=== PATIENT | male | born 1960 | race Caucasian/White ===

== ENCOUNTER → 2016-04-30 | Outpatient (CLI) | payer MEDICARE ==
[2016-04-30 17:33] LABS: Aty Lym Flag Slight; Basophils # (A) 0.1 k/uL (0-0.2); Basophils % (A) 1 %; CH 37.2; CHCM 31.9; Eosinophils # (A) 0.2 k/uL (0-0.7); Eosinophils % (A) 2 %; HCT 46.9 % (39.0-53.0); HDW 3.09; HGB 14.5 gm/dL (13.0-17.5); Luc # (Auto) 0.54; Luc % (Auto) 5; Lymphocytes # (A) 4.2 k/uL (1.0-4.8); Lymphocytes % (A) 42 %; MCH 36.5 pg (25.0-35.0); MCV 117.6 fL (80.0-100.0); Macrocytosis Marked; Mean Platelet Volume 6.7; Monocytes # (A) 0.6 k/uL (0-1.0); Monocytes % (A) 6 %; Neutrophils # (A) 4.5 k/uL (1.3-7.7); Neutrophils % (A) 44 %; RBC 3.98 m/uL (4.30-5.90); RDW 15.2 % (11.5-15.5); WBC 10.1 k/uL (3.8-10.6); WBC (Perox) 9.95
[2016-04-30 17:58] LABS: ALT 46 U/L (21-72); AST 34 U/L (17-59); Alkaline Phosphatase 58 U/L (38-126); Anion Gap 10 mmol/L; Blood Urea Nitrogen 10 mg/dL (9-20); Calcium 9.5 mg/dL (8.4-10.2); Carbon Dioxide 28 mmol/L (22-30); Chloride 104 mmol/L (98-107); Glucose 87 mg/dL (74-99); Non-African American GFR(MDRD) >60 (>60 ml/min/1.73 sqM); Potassium 4.8 mmol/L (3.5-5.1); Sodium 142 mmol/L (137-145); Total Bilirubin 0.6 mg/dL (0.2-1.3); Total Protein 7.7 g/dL (6.3-8.2)
[2016-04-30 19:24] LABS: Manual Review Performed; Nucleated Red Blood Cells 0 /100 WBC (0-0); Total Cells Counted 100
[2016-05-01 14:41] LABS: LOG HIV Copies/mL <1.60 (<1.60)
== END | disposition home or self-care (01) ==
LOC: LABWHC1 16:40
PROVIDERS: ATTEND Internal Medicine Infectious Disease
DX: B20 Human immunodeficiency virus [HIV] disease (principal)
CPT/HCPCS: 36415; 80053; 85025; 86360; 87536

== ENCOUNTER → 2016-09-06 | Outpatient (CLI) | payer MEDICARE ==
[2016-09-06 10:59] LABS: ALT 42 U/L (21-72); AST 31 U/L (17-59); Alkaline Phosphatase 64 U/L (38-126); Anion Gap 8 mmol/L; Blood Urea Nitrogen 10 mg/dL (9-20); Calcium 9.2 mg/dL (8.4-10.2); Carbon Dioxide 28 mmol/L (22-30); Chloride 106 mmol/L (98-107); Glucose 91 mg/dL (74-99); Non-African American GFR(MDRD) >60 (>60 ml/min/1.73 sqM); Potassium 4.7 mmol/L (3.5-5.1); Sodium 142 mmol/L (137-145); Total Bilirubin 0.9 mg/dL (0.2-1.3); Total Protein 7.5 g/dL (6.3-8.2)
[2016-09-06 11:25] LABS: Basophils # (A) 0.1 k/uL (0-0.2); Basophils % (A) 1 %; CH 36.9; CHCM 32.1; Eosinophils # (A) 0.3 k/uL (0-0.7); Eosinophils % (A) 2 %; HCT 43.1 % (39.0-53.0); HDW 3.06; HGB 13.9 gm/dL (13.0-17.5); Luc # (Auto) 0.37; Luc % (Auto) 4; Lymphocytes # (A) 3.6 k/uL (1.0-4.8); Lymphocytes % (A) 33 %; MCH 37.4 pg (25.0-35.0); MCHC 32.3 g/dL (31.0-37.0); MCV 115.8 fL (80.0-100.0); Macrocytosis Marked; Mean Platelet Volume 6.9; Monocytes # (A) 0.7 k/uL (0-1.0); Monocytes % (A) 7 %; Neutrophils # (A) 5.7 k/uL (1.3-7.7); Neutrophils % (A) 53 %; RBC 3.72 m/uL (4.30-5.90); RDW 14.9 % (11.5-15.5); WBC 10.6 k/uL (3.8-10.6); WBC (Perox) 10.49
[2016-09-06 12:25] LABS: Manual Review Performed; Stomatocytes Present
[2016-09-11 08:15] LABS: LOG HIV Copies/mL <1.60 (<1.60)
== END | disposition home or self-care (01) ==
LOC: LABWHC1 10:04
PROVIDERS: ATTEND Internal Medicine Infectious Disease
DX: B20 Human immunodeficiency virus [HIV] disease (principal)
CPT/HCPCS: 36415; 80053; 85025; 86360; 87536

== ENCOUNTER → 2017-01-10 | Outpatient (CLI) | payer MEDICARE ==
[2017-01-10 12:47] LABS: Basophils # (A) 0.1 k/uL (0-0.2); Basophils % (A) 1 %; CH 34.6; Eosinophils # (A) 0.3 k/uL (0-0.7); Eosinophils % (A) 3 %; HCT 47.8 % (39.0-53.0); HDW 3.09; HGB 14.8 gm/dL (13.0-17.5); Hypochromasia Moderate; Luc # (Auto) 0.33; Luc % (Auto) 3; Lymphocytes # (A) 3.8 k/uL (1.0-4.8); Lymphocytes % (A) 33 %; MCH 34.8 pg (25.0-35.0); MCHC 31.1 g/dL (31.0-37.0); MCV 112.1 fL (80.0-100.0); Macrocytosis Marked; Mean Platelet Volume 6.8; Monocytes # (A) 0.8 k/uL (0-1.0); Monocytes % (A) 7 %; Neutrophils # (A) 6.1 k/uL (1.3-7.7); Neutrophils % (A) 54 %; RBC 4.26 m/uL (4.30-5.90); RDW 13.7 % (11.5-15.5); WBC 11.4 k/uL (3.8-10.6); WBC (Perox) 10.61
[2017-01-10 12:53] LABS: ALT 71 U/L (21-72); AST 34 U/L (17-59); Alkaline Phosphatase 71 U/L (38-126); Anion Gap 9 mmol/L; Blood Urea Nitrogen 11 mg/dL (9-20); Calcium 9.8 mg/dL (8.4-10.2); Carbon Dioxide 28 mmol/L (22-30); Chloride 105 mmol/L (98-107); Glucose 77 mg/dL (74-99); Non-African American GFR(MDRD) >60 (>60 ml/min/1.73 sqM); Potassium 4.8 mmol/L (3.5-5.1); Sodium 142 mmol/L (137-145); Total Bilirubin 0.3 mg/dL (0.2-1.3); Total Protein 7.6 g/dL (6.3-8.2)
[2017-01-10 13:04] LABS: Manual Review Performed
[2017-01-14 14:20] LABS: LOG HIV Copies/mL <1.60 (<1.60)
== END | disposition home or self-care (01) ==
LOC: LABWHC1 12:12
PROVIDERS: ATTEND Internal Medicine Infectious Disease
DX: B20 Human immunodeficiency virus [HIV] disease (principal)
CPT/HCPCS: 36415; 80053; 85025; 86360; 86803; 87536

== ENCOUNTER → 2017-05-07 | Outpatient (CLI) | payer MEDICARE ==
[2017-05-07 13:26] LABS: Basophils # (A) 0.1 k/uL (0-0.2); Basophils % (A) 1 %; Eosinophils # (A) 0.2 k/uL (0-0.7); Eosinophils % (A) 2 %; HCT 49.5 % (39.0-53.0); Lymphocytes # (A) 4.1 k/uL (1.0-4.8); Lymphocytes % (A) 44 %; MCHC 32.4 g/dL (31.0-37.0); MCV 92.7 fL (80.0-100.0); Mean Platelet Volume 7.4; Monocytes # (A) 0.5 k/uL (0-1.0); Monocytes % (A) 5 %; Neutrophils # (A) 4.2 k/uL (1.3-7.7); Neutrophils % (A) 45 %; Platelet Count 341 k/uL (150-450); RBC 5.34 m/uL (4.30-5.90); RDW 14.6 % (11.5-15.5); WBC 9.3 k/uL (3.8-10.6)
[2017-05-07 13:36] LABS: ALT 29 U/L (21-72); AST 20 U/L (17-59); Albumin 4.4 g/dL (3.5-5.0); Alkaline Phosphatase 72 U/L (38-126); Anion Gap 12 mmol/L; Blood Urea Nitrogen 11 mg/dL (9-20); Calcium 9.6 mg/dL (8.4-10.2); Carbon Dioxide 26 mmol/L (22-30); Chloride 106 mmol/L (98-107); Glucose 84 mg/dL (74-99); Potassium 4.8 mmol/L (3.5-5.1); Sodium 144 mmol/L (137-145); Total Bilirubin 0.4 mg/dL (0.2-1.3); Total Protein 7.7 g/dL (6.3-8.2)
[2017-05-08 14:01] LABS: HIV-1 RNA Not detected (Not detected); HIV-1 RNA, Quant <40 Copies/mL (<40)
[2017-05-08 14:52] LABS: T4/T8 Ratio (CD4:CD8) 0.5 (1.0-3.7)
== END | disposition home or self-care (01) ==
LOC: LABWHC1 12:21
PROVIDERS: ATTEND Internal Medicine Infectious Disease
DX: B20 Human immunodeficiency virus [HIV] disease (principal)
CPT/HCPCS: 36415; 80053; 85025; 86360; 87536

== ENCOUNTER → 2017-09-26 | Outpatient (CLI) | payer MEDICARE ==
[2017-09-26 17:42] LABS: Basophils # (A) 0.1 k/uL (0-0.2); Basophils % (A) 1 %; Eosinophils # (A) 0.2 k/uL (0-0.7); Eosinophils % (A) 2 %; HCT 48.1 % (39.0-53.0); HGB 14.4 gm/dL (13.0-17.5); Lymphocytes # (A) 3.1 k/uL (1.0-4.8); Lymphocytes % (A) 32 %; MCH 28.3 pg (25.0-35.0); MCV 94.3 fL (80.0-100.0); Mean Platelet Volume 6.6; Monocytes # (A) 0.7 k/uL (0-1.0); Monocytes % (A) 7 %; Neutrophils # (A) 5.6 k/uL (1.3-7.7); Neutrophils % (A) 57 %; Platelet Count 318 k/uL (150-450); WBC 9.8 k/uL (3.8-10.6)
[2017-09-26 17:56] LABS: ALT 28 U/L (21-72); AST 16 U/L (17-59); Albumin 4.1 g/dL (3.5-5.0); Alkaline Phosphatase 73 U/L (38-126); Anion Gap 8 mmol/L; Blood Urea Nitrogen 5 mg/dL (9-20); Calcium 9.3 mg/dL (8.4-10.2); Carbon Dioxide 26 mmol/L (22-30); Chloride 106 mmol/L (98-107); Glucose 85 mg/dL (74-99); Potassium 4.6 mmol/L (3.5-5.1); Sodium 140 mmol/L (137-145); Total Bilirubin 0.4 mg/dL (0.2-1.3); Total Protein 7.4 g/dL (6.3-8.2)
[2017-09-27 10:34] LABS: T4/T8 Ratio (CD4:CD8) 0.6 (1.0-3.7)
[2017-09-27 13:26] LABS: HIV-1 RNA Not detected (Not detected); HIV-1 RNA, Quant <40 Copies/mL (<40)
== END | disposition home or self-care (01) ==
LOC: LABWHC1 16:31
PROVIDERS: ATTEND Internal Medicine Infectious Disease
DX: B20 Human immunodeficiency virus [HIV] disease (principal)
CPT/HCPCS: 36415; 80053; 85025; 86360; 87536

== ENCOUNTER → 2018-05-06 | Outpatient (CLI) | payer MEDICARE ==
[2018-05-06 16:11] LABS: Basophils # (A) 0.1 k/uL (0-0.2); Basophils % (A) 1 %; Eosinophils # (A) 0.2 k/uL (0-0.7); Eosinophils % (A) 2 %; HCT 49.4 % (39.0-53.0); HGB 15.5 gm/dL (13.0-17.5); Lymphocytes # (A) 4.5 k/uL (1.0-4.8); Lymphocytes % (A) 36 %; MCH 29.7 pg (25.0-35.0); MCHC 31.3 g/dL (31.0-37.0); MCV 95.1 fL (80.0-100.0); Mean Platelet Volume 7.1; Monocytes # (A) 0.8 k/uL (0-1.0); Monocytes % (A) 6 %; Neutrophils # (A) 6.6 k/uL (1.3-7.7); Neutrophils % (A) 53 %; Platelet Count 316 k/uL (150-450); RDW 14.6 % (11.5-15.5); WBC 12.5 k/uL (3.8-10.6)
[2018-05-07 01:18] LABS: Albumin 4.7 g/dL (3.80-4.90); Albumin/Globulin Ratio 1.57 (1.60-3.17); Calcium 9.6 mg/dL (8.7-10.3); Potassium 4.7 mmol/L (3.5-5.5); Total Bilirubin 0.4 mg/dL (0.3-1.2); Total Protein 7.7 g/dL (6.2-8.2)
[2018-05-07 12:44] LABS: T4/T8 Ratio (CD4:CD8) 0.6 (1.0-3.7)
[2018-05-08 12:53] LABS: HIV-1 RNA Not detected (Not detected); HIV-1 RNA, Quant <40 Copies/mL (<40)
== END | disposition home or self-care (01) ==
LOC: LABWHC1 15:26
PROVIDERS: ATTEND Internal Medicine Infectious Disease
DX: B20 Human immunodeficiency virus [HIV] disease (principal)
CPT/HCPCS: 36415; 80053; 85025; 86360; 87536

== ENCOUNTER 2018-07-09 09:25 | Day surgery (SDC) | payer MEDICARE ==
[2018-07-07 17:04] VITALS: BMI 27.6
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
[~2018-07-09 09:25] MED LIST: LACTATED RINGERS 1,000 ML IV SCH; LIDOCAINE 1% 20 ML VIAL (10MG/ML) FOR IV START INTRADERMA PRN
[2018-07-09] MEDS ORDERED: LIDOCAINE 1% 20 ML VIAL (10MG/ML) FOR IV START INTRADERMA ONE (10:00)
[2018-07-09 10:18] VITALS: TEMP 98.2
[2018-07-09] MEDS ORDERED: PROPOFOL 10 MG/ML 20 ML VIAL IV ONE (10:34)
[2018-07-09 11:10] VITALS: BP 102/60; PULSE 90; RESP 18
--- NOTE | 2018-07-09 11:55 | P.PCN ---
Date of Procedure: 07/09/18 Description of Procedure: PREOPERATIVE DIAGNOSIS: Personal history of colon polyps. Colonoscopy screening Family history of colon cancer, multiple siblings POSTOPERATIVE DIAGNOSIS: Personal history of colon polyps. Colonoscopy screening Family history of colon cancer, multiple siblings External hemorrhoids, stage 2 Internal hemorrhoids, stage 2 OPERATION: Colonoscopy to the ileocecal valve and appendiceal orifice. Colonoscopy with multiple hot snare polypectomies SURGEON: Suma Malone MD. ANESTHESIA: MAC. INDICATIONS: The patient is a 57-year-old male who presents for colonoscopy screening. Last colonoscopy 8 years ago. Benefits and risks were described and informed consent was obtained. DESCRIPTION OF PROCEDURE: The patient had undergone Gatorade, MiraLAX and Dulcolax prep. He had been brought into the operating room and laid in the left lateral decubitus position. After adequate intravenous sedation, the rectum was examined with 2% lidocaine jelly. External hemorrhoids were encountered. The rectal tone was within normal limits. No lesions were palpated in the rectal vault. An Olympus colonoscope was advanced until the ileocecal valve and appendiceal orifice were clearly viewed. The prep was fair with visualization of the mucosal folds. The scope was removed with visualization of each mucosal fold. Scattered diverticulosis was encountered. Multiple colonic polyps were found and snare polypectomy. No evidence of focal colitis was found. Retroflexion of the scope demonstrated grade 2 internal hemorrhoids without active bleeding or inflammation. The colon was desufflated. The patient had tolerated the procedure well. Withdrawal time was over 6 minutes. FINDINGS: Aronchick preparation quality scale 2 (1-5) Internal hemorrhoids, grade 2 External hemorrhoids, grade 2. No arteriovenous malformations. Sigmoid diverticulosis. Removal of 4 polyps: - Snare polypectomy mid transverse colon 3, 4 to 5 mm tubulovillous adenoma polyp. - Snare polypectomy splenic flexure, 8 mm flat villous adenoma polyp x 1 (retrieved) No focal colitis. RECOMMENDATIONS: Given severity of tubular adenomas, recommend repeat colonoscopy 3 years, 2021. Plan - Discharge Summary Discharge Rx Participant: No New Discharge Prescriptions: No Action Ascorbic Acid [Vitamin C] 1,000 mg PO DAILY Multivit-Min/FA/Lycopen/Lutein [Centrum Silver Tablet] 1 each PO DAILY Mirtazapine [Remeron] 30 mg PO HS Elviteg/Donna/Emtric/Tenofo Dis [Stribild Tablet] 1 tab PO HS Divalproex [Depakote] 500 mg PO BID Amitriptyline HCl 200 mg PO HS Ipratropium/Albuterol Sulfate [Combivent Respimat Inhaler] 1 puff INHALATION BID Albuterol Inhaler [Ventolin Hfa Inhaler] 1 puff INHALATION TID PRN PRN Reason: sob Albuterol Nebulized (Conc) [Ventolin Nebulized (Conc)] 2.5 mg INHALATION QID Red Yeast Rice 600 mg PO DAILY Fish Oil Cap 900 mg PO DAILY Discharge Medication List Albuterol Inhaler [Ventolin Hfa Inhaler] 1 puff INHALATION TID PRN 07/07/18 [History] Albuterol Nebulized (Conc) [Ventolin Nebulized (Conc)] 2.5 mg INHALATION QID 07/07/18 [History] Amitriptyline HCl 200 mg PO HS 07/07/18 [History] Ascorbic Acid [Vitamin C] 1,000 mg PO DAILY 07/07/18 [History] Divalproex [Depakote] 500 mg PO BID 07/07/18 [History] Elviteg/Donna/Emtric/Tenofo Dis [Stribild Tablet] 1 tab PO HS 07/07/18 [History] Fish Oil Cap 900 mg PO DAILY 07/07/18 [History] Ipratropium/Albuterol Sulfate [Combivent Respimat Inhaler] 1 puff INHALATION BID 07/07/18 [History] Mirtazapine [Remeron] 30 mg PO HS 07/07/18 [History] Multivit-Min/FA/Lycopen/Lutein [Centrum Silver Tablet] 1 each PO DAILY 07/07/18 [History] Red Yeast Rice 600 mg PO DAILY 07/07/18 [History] Follow up Appointment(s)/Referral(s): Suma Malone MD [STAFF PHYSICIAN] - As Needed Patient Instructions/Handouts: *Surgery [facility] - (Anesthesia) Endoscopy Discharge Instructions, Colonoscopy (DC), Colorectal Polyps (DC) Activity/Diet/Wound Care/Special Instructions: Repeat colonoscopy 3 years, 2021 Discharge Disposition: HOME SELF-CARE
== END 2018-07-09 11:46 | disposition home or self-care (01) ==
LOC: ORWHC2ENDO 09:25
PROVIDERS: ATTEND Surgery Plastic and Reconstructive Surgery
DX: Z12.11 Encounter for screening for malignant neoplasm of colon (principal); D12.3 Benign neoplasm of transverse colon; K64.8 Other hemorrhoids; K64.4 Residual hemorrhoidal skin tags; K57.30 Diverticulosis of large intestine without perforation or abscess without bleeding; J44.9 Chronic obstructive pulmonary disease, unspecified; I10 Essential (primary) hypertension; E78.5 Hyperlipidemia, unspecified; F17.210 Nicotine dependence, cigarettes, uncomplicated; Z80.0 Family history of malignant neoplasm of digestive organs; Z86.010 Personal history of colon polyps; Z79.899 Other long term (current) drug therapy
CPT/HCPCS: 45385; 88305

== ENCOUNTER → 2018-11-04 | Outpatient (CLI) | payer MEDICARE ==
[2018-11-04 17:31] LABS: Basophils # (A) 0.1 k/uL (0-0.2); Basophils % (A) 1 %; Eosinophils # (A) 0.2 k/uL (0-0.7); Eosinophils % (A) 2 %; HCT 49.3 % (39.0-53.0); HGB 15.6 gm/dL (13.0-17.5); Lymphocytes # (A) 4.5 k/uL (1.0-4.8); Lymphocytes % (A) 43 %; MCH 30.2 pg (25.0-35.0); MCHC 31.8 g/dL (31.0-37.0); MCV 95.1 fL (80.0-100.0); Mean Platelet Volume 7.4; Monocytes # (A) 0.6 k/uL (0-1.0); Monocytes % (A) 6 %; Neutrophils # (A) 4.7 k/uL (1.3-7.7); Neutrophils % (A) 45 %; Platelet Count 353 k/uL (150-450); RBC 5.18 m/uL (4.30-5.90); RDW 15.5 % (11.5-15.5); WBC 10.4 k/uL (3.8-10.6)
[2018-11-05 12:51] LABS: T4/T8 Ratio (CD4:CD8) 0.6 (1.0-3.7)
== END | disposition home or self-care (01) ==
LOC: LABWHC1 17:03
PROVIDERS: ATTEND Internal Medicine Infectious Disease
DX: B20 Human immunodeficiency virus [HIV] disease (principal); J43.9 Emphysema, unspecified
CPT/HCPCS: 36415; 85025; 86360; 87536

== ENCOUNTER → 2018-11-05 | Outpatient (CLI) | payer MEDICARE ==
[2018-11-05 20:09] LABS: African American GFR (CKD) 86.5 (60.0-200.0); Albumin 4.6 g/dL (3.80-4.90); Albumin/Globulin Ratio 1.7 (1.60-3.17); Anion Gap 7.7 mmol/L (4.00-12.00); BUN/Creat Ratio 9.09 Ratio (12.00-20.00); Calcium 9.7 mg/dL (8.7-10.3); Carbon Dioxide 30.3 mmol/L (21.6-31.8); Chol/HDL Ratio 5.8; Globulin 2.7 g/dL (1.6-3.3); LDL Cholesterol,Calculated 130.8 mg/dL (0.0-131.0); Potassium 5.1 mmol/L (3.5-5.5); Total Bilirubin 0.3 mg/dL (0.2-1.2); Total Protein 7.3 g/dL (6.2-8.2); VLDL Calculation 61.2 mg/dL (5.00-40.00)
== END | disposition home or self-care (01) ==
LOC: LABWHC1 13:25
PROVIDERS: ATTEND Internal Medicine Infectious Disease
DX: B20 Human immunodeficiency virus [HIV] disease (principal); J43.9 Emphysema, unspecified; E78.00 Pure hypercholesterolemia, unspecified
CPT/HCPCS: 36415; 80053; 80061

== ENCOUNTER → 2019-01-23 | Outpatient (CLI) | payer MEDICARE ==
[2019-01-23 12:45] LABS: Basophils # (A) 0.3 k/uL (0-0.2); Basophils % (A) 3 %; Eosinophils # (A) 0.3 k/uL (0-0.7); Eosinophils % (A) 2 %; HGB 15.7 gm/dL (13.0-17.5); Lymphocytes # (A) 3.9 k/uL (1.0-4.8); Lymphocytes % (A) 32 %; MCH 31.4 pg (25.0-35.0); MCHC 32.7 g/dL (31.0-37.0); MCV 95.9 fL (80.0-100.0); Mean Platelet Volume 6.5; Monocytes # (A) 0.9 k/uL (0-1.0); Monocytes % (A) 7 %; Neutrophils # (A) 6.7 k/uL (1.3-7.7); Neutrophils % (A) 55 %; Platelet Count 325 k/uL (150-450); RDW 14.5 % (11.5-15.5); WBC 12.4 k/uL (3.8-10.6)
[2019-01-23 19:43] LABS: African American GFR (CKD) 96.4 (60.0-200.0); Albumin 4.4 g/dL (3.80-4.90); Albumin/Globulin Ratio 1.57 (1.60-3.17); Calcium 9.5 mg/dL (8.7-10.3); Chol/HDL Ratio 4.32; Globulin 2.8 g/dL (1.6-3.3); LDL Cholesterol,Calculated 83.8 mg/dL (0.0-131.0); Non-African American GFR(CKD) 83.2 (60.0-200.0); Potassium 4.8 mmol/L (3.5-5.5); Total Bilirubin 0.5 mg/dL (0.3-1.2); Total Protein 7.2 g/dL (6.2-8.2); VLDL Calculation 39.2 mg/dL (5.00-40.00)
[2019-01-26 12:28] LABS: T4/T8 Ratio (CD4:CD8) 0.6 (1.0-3.7)
[2019-01-26 14:51] LABS: HIV-1 RNA Not detected (Not detected); HIV-1 RNA, Quant <40 Copies/mL (<40)
== END | disposition home or self-care (01) ==
LOC: LABWHC1 11:43
PROVIDERS: ATTEND Internal Medicine Infectious Disease
DX: E78.5 Hyperlipidemia, unspecified (principal); J43.9 Emphysema, unspecified; B20 Human immunodeficiency virus [HIV] disease
CPT/HCPCS: 36415; 80053; 80061; 85025; 86360; 87536

== ENCOUNTER → 2019-07-30 | Outpatient (CLI) | payer MEDICARE ==
[2019-07-30 12:47] LABS: Basophils # (A) 0.1 k/uL (0-0.2); Basophils % (A) 1 %; Eosinophils # (A) 0.3 k/uL (0-0.7); Eosinophils % (A) 2 %; HCT 50.4 % (39.0-53.0); HGB 15.4 gm/dL (13.0-17.5); Hypochromasia Moderate; Lymphocytes # (A) 3.5 k/uL (1.0-4.8); Lymphocytes % (A) 29 %; MCH 29.7 pg (25.0-35.0); MCHC 30.7 g/dL (31.0-37.0); MCV 96.9 fL (80.0-100.0); Mean Platelet Volume 7.5; Monocytes # (A) 0.7 k/uL (0-1.0); Monocytes % (A) 6 %; Neutrophils # (A) 7.2 k/uL (1.3-7.7); Neutrophils % (A) 60 %; Platelet Count 357 k/uL (150-450)
[2019-07-31 12:57] LABS: T4/T8 Ratio (CD4:CD8) 0.6 (1.0-3.7)
== END | disposition home or self-care (01) ==
LOC: LABWHC1 11:37
PROVIDERS: ATTEND Internal Medicine Infectious Disease
DX: E78.5 Hyperlipidemia, unspecified (principal); B20 Human immunodeficiency virus [HIV] disease
CPT/HCPCS: 36415; 85025; 86360; 87536

== ENCOUNTER → 2020-04-28 | Outpatient (CLI) | payer MEDICARE ==
[2020-04-28 23:16] LABS: Basophils # (A) 0.09 X 10*3/uL (0.00-0.10); Basophils % (A) 0.8 %; Eosinophils # (A) 0.26 X 10*3/uL (0.04-0.35); Eosinophils % (A) 2.2 %; HCT 43.2 % (39.6-50.0); HGB 13.9 g/dL (13.0-17.0); Lymphocytes # (A) 3.75 X 10*3/uL (0.90-5.00); Lymphocytes % (A) 32.1 %; MCH 30.5 pg (27.0-32.0); MCHC 32.2 g/dL (32.0-37.0); MCV 94.9 fL (80.0-97.0); Mean Platelet Volume 9.5 fL (9.5-12.2); Monocytes # (A) 1.43 X 10*3/uL (0.20-1.00); Monocytes % (A) 12.2 %; Neutrophils # (A) 6.12 X 10*3/uL (1.80-7.70); Neutrophils % (A) 52.4 %; Platelet Count 406 X 10*3/uL (140-440); RBC 4.55 X 10*6/uL (4.40-5.60); RDW 17.5 % (11.5-14.5); WBC 11.69 X 10*3/uL (4.50-10.00)
[2020-04-29 04:30] LABS: African American GFR (CKD) 76.8 (60.0-200.0); Albumin 4.2 g/dL (3.80-4.90); Albumin/Globulin Ratio 1.62 (1.60-3.17); Anion Gap 12.5 mmol/L (4.00-12.00); BUN/Creat Ratio 5.83 Ratio (12.00-20.00); Calcium 9.6 mg/dL (8.7-10.3); Carbon Dioxide 28.5 mmol/L (21.6-31.8); Globulin 2.6 g/dL (1.6-3.3); Non-African American GFR(CKD) 66.3 (60.0-200.0); Potassium 3.9 mmol/L (3.5-5.5); Total Bilirubin 0.5 mg/dL (0.2-1.2); Total Protein 6.8 g/dL (6.2-8.2)
[2020-04-29 18:33] LABS: T4/T8 Ratio (CD4:CD8) 0.6 (1.0-3.7)
== END | disposition home or self-care (01) ==
LOC: LABWHC1 15:36
PROVIDERS: ATTEND Internal Medicine Infectious Disease
DX: B20 Human immunodeficiency virus [HIV] disease (principal)
CPT/HCPCS: 36415; 80053; 85025; 86360; 87536

== ENCOUNTER → 2020-10-21 | Outpatient (CLI) | payer MEDICARE ==
[2020-10-21 23:35] LABS: Basophils # (A) 0.08 X 10*3/uL (0.00-0.10); Basophils % (A) 0.8 %; Eosinophils # (A) 0.32 X 10*3/uL (0.04-0.35); Eosinophils % (A) 3.1 %; HGB 14.1 g/dL (13.0-17.0); Lymphocytes # (A) 3.61 X 10*3/uL (0.90-5.00); Lymphocytes % (A) 34.9 %; MCH 29.4 pg (27.0-32.0); MCHC 31.3 g/dL (32.0-37.0); MCV 93.8 fL (80.0-97.0); Mean Platelet Volume 9.8 fL (9.5-12.2); Monocytes # (A) 1.01 X 10*3/uL (0.20-1.00); Monocytes % (A) 9.8 %; Neutrophils % (A) 51.2 %; Platelet Count 425 X 10*3/uL (140-440); RDW 16.2 % (11.5-14.5); WBC 10.34 X 10*3/uL (4.50-10.00)
[2020-10-22 13:04] LABS: African American GFR (CKD) 69.7 (60.0-200.0); Anion Gap 11.9 mmol/L (4.00-12.00); BUN/Creat Ratio 7.69 Ratio (12.00-20.00); Calcium 9.2 mg/dL (8.7-10.3); Carbon Dioxide 24.1 mmol/L (21.6-31.8); Non-African American GFR(CKD) 60.1 (60.0-200.0)
[2020-10-22 14:55] LABS: T4/T8 Ratio (CD4:CD8) 0.7 (1.0-3.7)
== END | disposition home or self-care (01) ==
LOC: LABWHC1 14:11
PROVIDERS: ATTEND Internal Medicine Infectious Disease
DX: B20 Human immunodeficiency virus [HIV] disease (principal)
CPT/HCPCS: 36415; 80048; 85025; 86360; 87536

== ENCOUNTER 2021-04-15 14:31 | Inpatient (IN) | payer MEDICARE, BC ==
[2021-04-15] MEDS ORDERED: SODIUM CHLORIDE 0.9% 1,000 ML IV STA (14:59)
[2021-04-15] MEDS ORDERED: ONDANSETRON 4 MG/2 ML VIAL IVP STA (15:19)
[2021-04-15] MEDS ORDERED: HYDROmorphone 0.5 MG/0.5 ML SYRINGE IVP STA (15:19)
--- NOTE | 2021-04-15 15:46 | ED ---
Abdominal Pain HPI - General Chief Complaint: Abdominal Pain Stated Complaint: abd pain Time Seen by Provider: 04/15/21 14:51 Source: patient, family, RN notes reviewed Mode of arrival: wheelchair Limitations: no limitations - History of Present Illness Initial Comments: 60-year-old male presents emergency Department with chief complaint severe abdominal pain. Patient states started last 24 hours states his abdomen is very distended, very painful last bowel movement was 2 days ago. Patient states that he's had prior hernia repair, states that his evidence severely painful, distended, he's been vomiting very nauseated. He denies any dysuria hematuria no fevers chills no chest pain or shortness breath. Nothing makes his pain feel better - Related Data Home Medications Medication Instructions Recorded Confirmed Albuterol Inhaler (Mhu) [Ventolin 1 puff INHALATION TID PRN 07/07/18 07/09/18 Hfa Inhaler] Albuterol Nebulized (Conc) 2.5 mg INHALATION QID 07/07/18 07/09/18 [Ventolin Nebulized (Conc)] Amitriptyline HCl 200 mg PO HS 07/07/18 07/09/18 Ascorbic Acid [Vitamin C] 1,000 mg PO DAILY 07/07/18 07/09/18 Divalproex [Depakote] 500 mg PO BID 07/07/18 07/09/18 Elviteg/Donna/Emtric/Tenofo Dis 1 tab PO HS 07/07/18 07/09/18 [Stribild Tablet] Fish Oil Cap 900 mg PO DAILY 07/07/18 07/09/18 Ipratropium/Albuterol Sulfate 1 puff INHALATION BID 07/07/18 07/09/18 [Combivent Respimat Inhaler] Mirtazapine [Remeron] 30 mg PO HS 07/07/18 07/09/18 Multivit-Min/FA/Lycopen/Lutein 1 each PO DAILY 07/07/18 07/09/18 [Centrum Silver Tablet] Red Yeast Rice 600 mg PO DAILY 07/07/18 07/09/18 Allergies Allergy/AdvReac Type Severity Reaction Status Date / Time No Known Allergies Allergy Verified 04/15/21 14:42 Review of Systems ROS Statement: Those systems with pertinent positive or pertinent negative responses have been documented in the HPI. ROS Other: All systems not noted in ROS Statement are negative. Past Medical History Additional Past Medical History / Comment(s): HIV History of Any Multi-Drug Resistant Organisms: None Reported Past Surgical History: Hernia Repair Past Psychological History: No Psychological Hx Reported Smoking Status: Current every day smoker Past Alcohol Use History: None Reported Past Drug Use History: None Reported General Exam Limitations: no limitations General appearance: alert, in no apparent distress Head exam: Present: atraumatic, normocephalic, normal inspection Neck exam: Present: normal inspection. Absent: tenderness, meningismus, lymphadenopathy Respiratory exam: Present: normal lung sounds bilaterally. Absent: respiratory distress, wheezes, rales, rhonchi, stridor Cardiovascular Exam: Present: regular rate, normal rhythm, normal heart sounds. Absent: systolic murmur, diastolic murmur, rubs, gallop, clicks GI/Abdominal exam: Present: soft, distended, tenderness, normal bowel sounds. Absent: guarding, rebound, rigid Back exam: Absent: CVA tenderness (R), CVA tenderness (L) Neurological exam: Present: alert Skin exam: Present: warm, dry, intact, normal color. Absent: rash Course Vital Signs 04/15/21 04/15/21 14:36 15:36 Temperature 98.3 F Pulse Rate 67 100 Respiratory 18 22 Rate Blood Pressure 117/80 O2 Sat by Pulse 95 Oximetry Medical Decision Making - Medical Decision Making 60-year-old presented for abdominal pain. Patient CT shows a lot of small bowel obstruction. NG tube will be placed. Labs reveal mild leukocytosis. Patient be well-hydrated. Patient will be admitted to Dr. Johnson has patient's CT Dr. Michael in the past. - Lab Data Result diagrams: 04/15/21 15:25 04/15/21 15:25 Lab Results 04/15/21 04/15/21 04/15/21 Range/Units 15:25 15:25 15:25 WBC 13.1 H (3.8-10.6) k/uL RBC 5.38 (4.30-5.90) m/uL Hgb 16.4 (13.0-17.5) gm/dL Hct 51.0 (39.0-53.0) % MCV 94.8 (80.0-100.0) fL MCH 30.5 (25.0-35.0) pg MCHC 32.2 (31.0-37.0) g/dL RDW 14.9 (11.5-15.5) % Plt Count 430 (150-450) k/uL MPV 7.1 Sodium 137 (137-145) mmol/L Potassium 3.8 (3.5-5.1) mmol/L Chloride 98 (98-107) mmol/L Carbon Dioxide 27 (22-30) mmol/L Anion Gap 12 mmol/L BUN 24 H (9-20) mg/dL Creatinine 0.94 (0.66-1.25) mg/dL Est GFR (CKD-EPI)AfAm >90 (>60 ml/min/1.73 sqM) Est GFR (CKD-EPI)NonAf 89 (>60 ml/min/1.73 sqM) Glucose 124 H (74-99) mg/dL Plasma Lactic Acid Joselo 1.4 (0.7-2.0) mmol/L Calcium 10.0 (8.4-10.2) mg/dL Total Bilirubin 1.1 (0.2-1.3) mg/dL AST 22 (17-59) U/L ALT 21 (4-49) U/L Alkaline Phosphatase 96 (38-126) U/L Total Protein 7.7 (6.3-8.2) g/dL Albumin 4.4 (3.5-5.0) g/dL Amylase 49 (30-110) U/L Lipase 42 (23-300) U/L Disposition Clinical Impression: Small bowel obstruction Disposition: ADMITTED IP TO THIS [facility] Condition: Fair Referrals: None,Stated [Primary Care Provider] - 1-2 days
[2021-04-15 15:50] LABS: HGB 16.4 gm/dL (13.0-17.5); MCH 30.5 pg (25.0-35.0); MCHC 32.2 g/dL (31.0-37.0); MCV 94.8 fL (80.0-100.0); Mean Platelet Volume 7.1; Platelet Count 430 k/uL (150-450); RBC 5.38 m/uL (4.30-5.90); RDW 14.9 % (11.5-15.5); WBC 13.1 k/uL (3.8-10.6)
[2021-04-15 15:55] LABS: ALT 21 U/L (4-49); AST 22 U/L (17-59); African American GFR (CKD) >90 (>60 ml/min/1.73 sqM); Albumin 4.4 g/dL (3.5-5.0); Alkaline Phosphatase 96 U/L (38-126); Amylase 49 U/L (30-110); Anion Gap 12 mmol/L; Blood Urea Nitrogen 24 mg/dL (9-20); Carbon Dioxide 27 mmol/L (22-30); Chloride 98 mmol/L (98-107); Glucose 124 mg/dL (74-99); Lipase 42 U/L (23-300); Non-African American GFR(CKD) 89 (>60 ml/min/1.73 sqM); Potassium 3.8 mmol/L (3.5-5.1); Sodium 137 mmol/L (137-145); Total Bilirubin 1.1 mg/dL (0.2-1.3); Total Protein 7.7 g/dL (6.3-8.2)
--- NOTE | 2021-04-15 16:26 | CT ---
EXAMINATION TYPE: CT abdomen pelvis w con DATE OF EXAM: 04/15/2021 COMPARISON: 10/15/2012 HISTORY: Abdominal pain, distention. CT DLP: 1739.8 mGycm Automated exposure control for dose reduction was used. CONTRAST: Performed with IV Contrast, patient injected with 100 mL of Isovue 300. Images obtained from the diaphragm to the floor of the pelvis with IV contrast. There is some mild pulmonary emphysema. There is no pleural effusion. There is subsegmental atelectas is at the lung bases. Liver and spleen are intact. The stomach is dilated with fluid. There is no pancreatic mass. Gallblad carlos appears normal. The bile ducts are not dilated. There is no adrenal mass. Kidneys show satisfactory contrast opacification. There is no hydronephrosi s. Ureters are not dilated. There is no retroperitoneal adenopathy. Bladder distends smoothly. There is no inguinal hernia. There is small amount of low-density fluid in the pelvis. There are multiple dilated small bowel loops with fluid levels. There is small amount of fluid in the left and right paracolic gutter. Small bowel is dilated up to 5 cm. The terminal ileum is not dilated. Transition point not identified . The lumbar vertebrae have normal alignment. Disc spaces are normal. Posterior elements are intact. Jens ny pelvis is intact. The hip joints are intact. There is no evidence of free air. IMPRESSION: Moderately dilated small bowel with fluid levels consistent with high-grade mechanical bowel obstruct ion in the proximal ileum or distal jejunum. Transition point not identified. Mild atelectasis at the lung bases.
[2021-04-15] MEDS ORDERED: ONDANSETRON 4 MG/2 ML VIAL IVP PRN (16:43)
[2021-04-15] MEDS ORDERED: NALOXONE 0.4 MG/ML 1 ML VIAL IV PRN (16:43)
[2021-04-15] MEDS ORDERED: HYDROmorphone 0.5 MG/0.5 ML SYRINGE IVP PRN (16:43)
[2021-04-15] MEDS ORDERED: SODIUM CHLORIDE 0.9% 1,000 ML IV ONE (16:44)
[2021-04-15 17:06] LABS: Band Neutrophils % 8 %; Lymphocytes # (M) 4.19 k/uL (1.0-4.8); Monocytes # (M) 0.39 k/uL (0-1.0); Neutrophils % (M) 57 %; Nucleated Red Blood Cells 0 /100 WBC (0-0); Total Cells Counted 100
[2021-04-15 17:07] LABS: Reactive Lymphocytes Present
[2021-04-15] MEDS: SODIUM CHLORIDE 0.9% 1,000 ML IV SCH (17:22)
[2021-04-15] MEDS: HYDROmorphone 1 MG/ML 1 ML SYRINGE IVP PRN (21:33)
[2021-04-15] MEDS ORDERED: ALBUTEROL HFA INHALER INHALATION PRN (22:10)
[2021-04-15] MEDS: AMITRIPTYLINE HCL 10 MG TAB PO SCH (23:02)
[2021-04-15] MEDS: MIRTAZAPINE 15 MG TAB PO SCH (23:03)
[2021-04-15] MEDS: IPRATROPIUM-ALBUTEROL 3 ML NEB INHALATION SCH (23:09)
[2021-04-15 23:35] LABS: Appearance,Urine Clear (Clear); Bilirubin,Urine Negative (Negative); Blood,Urine Negative (Negative); Color,Urine Yellow; Glucose,Urine (UA) Negative (Negative); Ketones,Urine Negative (Negative); Leukocyte Esterase,Urine Negative (Negative); Nitrite,Urine Negative (Negative); Protein,Urine Trace (Negative); Urobilinogen,Urine <2.0 mg/dL (<2.0)
[2021-04-15 23:38] LABS: Specific Gravity,Urine >1.050 (1.001-1.035)
[2021-04-16] MEDS: HYDROmorphone 1 MG/ML 1 ML SYRINGE IVP PRN ×3 (00:54→22:38)
[2021-04-16] MEDS: ALBUTEROL NEBULIZED 2.5 MG/3 ML INHALATION PRN (04:43)
[2021-04-16] MEDS: LEVOTHYROXINE 50 MCG TAB PO SCH (05:21)
[2021-04-16] MEDS: SODIUM CHLORIDE 0.9% 1,000 ML IV SCH ×2 (07:52→16:26)
[2021-04-16] MEDS: ASCORBIC ACID 500 MG TAB PO SCH (07:52)
[2021-04-16] MEDS: POTASSIUM CHLORIDE ER 10 MEQ TAB.ER.PRT PO SCH (07:52)
[2021-04-16] MEDS: PANTOPRAZOLE 40 MG/10 ML VIAL IV SCH (07:53)
[2021-04-16] MEDS: MULTIVITAMINS, THERA 1 EACH TAB PO SCH (07:53)
[2021-04-16] MEDS: ATORVASTATIN 20 MG TAB PO SCH (07:53)
[2021-04-16] MEDS: CLOPIDOGREL 75 MG TAB PO SCH (07:53)
[2021-04-16] MEDS: [UNRECOGNIZED DRUG - OTHER] PO SCH (07:54)
[2021-04-16] MEDS: LOSARTAN-HCTZ 50-12.5 MG 1 EACH TAB PO SCH (07:54)
[2021-04-16] MEDS: FLUTICASONE 50MCG/SPRAY NASAL 16GM EA NOSTRIL SCH (08:00)
[2021-04-16] MEDS ORDERED: IPRATROPIUM 0.5 MG/2.5 ML NEBU INHALATION SCH (08:00)
[2021-04-16] MEDS: IPRATROPIUM-ALBUTEROL 3 ML NEB INHALATION SCH ×4 (08:39→19:42)
[2021-04-16] MEDS: NICOTINE 21MG/24HR PATCH TRANSDERM SCH (10:33)
--- NOTE | 2021-04-16 11:44 | P.GSHP ---
History of Present Illness H&P Date: 04/16/21 Chief Complaint: Abdominal pain, nausea and distention This is a 60-year-old male who was admitted through the emergency room with complaints of abdominal pain nausea and distention. Patient was worked up found have evidence of small bowel obstruction. Patient has a previous history of incisional hernia repair. This was performed approximately 10 years ago. Patient is HIV positive. Past Medical History Past Medical History: COPD Additional Past Medical History / Comment(s): HIV, cellulitis in 2020 History of Any Multi-Drug Resistant Organisms: None Reported Past Surgical History: Hernia Repair, Joint Replacement Additional Past Surgical History / Comment(s): left knee, fatty tumor removed from lip, spinal surgery (fusion of C4 C5 and C6) Past Psychological History: No Psychological Hx Reported Smoking Status: Current every day smoker Past Alcohol Use History: None Reported Past Drug Use History: None Reported Medications and Allergies Home Medications Medication Instructions Recorded Confirmed Type Ascorbic Acid [Vitamin C] 1,000 mg PO DAILY 07/07/18 04/15/21 History Elviteg/Dnona/Emtric/Tenofo Dis 1 tab PO DAILY 07/07/18 04/15/21 History [Stribild Tablet] Ipratropium/Albuterol Sulfate 1 puff INHALATION RT-QID 07/07/18 04/15/21 History [Combivent Respimat Inhaler] Mirtazapine [Remeron] 30 mg PO HS 07/07/18 04/15/21 History Multivit-Min/FA/Lycopen/Lutein 1 tab PO DAILY 07/07/18 04/15/21 History [Centrum Silver Tablet] Red Yeast Rice 1,200 mg PO DAILY 07/07/18 04/15/21 History Albuterol Inhaler [Ventolin Hfa 2 puff INHALATION RT-QID PRN 04/15/21 04/15/21 History Inhaler] Albuterol Nebulized [Ventolin 2.5 mg INHALATION RT-Q6H PRN 04/15/21 04/15/21 History Nebulized] Amitriptyline HCl [Elavil] 40 mg PO HS 04/15/21 04/15/21 History Atorvastatin [Lipitor] 20 mg PO DAILY 04/15/21 04/15/21 History Cephalexin [Keflex] 500 mg PO BID 04/15/21 04/15/21 History Clopidogrel [Plavix] 75 mg PO DAILY 04/15/21 04/15/21 History Fluticasone Nasal [place] [Flonase 1 spray EA NOSTRIL DAILY 04/15/21 04/15/21 History Nasal [place]] Ipratropium [place] [Atrovent Hfa] 2 puff INHALATION RT-DAILY 04/15/21 04/15/21 History Levothyroxine Sodium [Synthroid] 50 mcg PO DAILY 04/15/21 04/15/21 History Losartan-Hctz 50-12.5 mg [Hyzaar 1 tab PO DAILY 04/15/21 04/15/21 History 50-12.5] Potassium Chloride ER [K-Dur 10] 10 meq PO DAILY 04/15/21 04/15/21 History Allergies Allergy/AdvReac Type Severity Reaction Status Date / Time No Known Allergies Allergy Verified 04/15/21 17:03 Surgical - Exam Vital Signs Temp Pulse Resp BP 98.3 F 67 18 117/80 04/15/21 14:36 04/15/21 14:36 04/15/21 14:36 04/15/21 14:36 - General well developed, no distress - Eyes PERRL - ENT normal pinna - Neck no masses - Respiratory normal expansion - Cardiovascular Rhythm: regular - Abdomen Abdomen is distended. There is minimal tenderness throughout. There is no rebound or guarding Abdomen: soft Results - Labs 04/15/21 15:25 04/15/21 15:25 Abnormal Lab Results - Last 24 Hours (Table) 04/15/21 04/15/21 04/15/21 Range/Units 15:25 15:25 21:00 WBC 13.1 H (3.8-10.6) k/uL Neutrophils # (Manual) 8.50 H (1.3-7.7) k/uL BUN 24 H (9-20) mg/dL Glucose 124 H (74-99) mg/dL Ur Specific [place] >1.050 H (1.001-1.035) Urine Protein Trace H (Negative) Diabetes panel 04/15/21 Range/Units 15:25 Sodium 137 (137-145) mmol/L Potassium 3.8 (3.5-5.1) mmol/L Chloride 98 (98-107) mmol/L Carbon Dioxide 27 (22-30) mmol/L BUN 24 H (9-20) mg/dL Creatinine 0.94 (0.66-1.25) mg/dL Glucose 124 H (74-99) mg/dL Calcium 10.0 (8.4-10.2) mg/dL AST 22 (17-59) U/L ALT 21 (4-49) U/L Alkaline Phosphatase 96 (38-126) U/L Total Protein 7.7 (6.3-8.2) g/dL Albumin 4.4 (3.5-5.0) g/dL Calcium panel 04/15/21 Range/Units 15:25 Calcium 10.0 (8.4-10.2) mg/dL Albumin 4.4 (3.5-5.0) g/dL Pituitary panel 04/15/21 Range/Units 15:25 Sodium 137 (137-145) mmol/L Potassium 3.8 (3.5-5.1) mmol/L Chloride 98 (98-107) mmol/L Carbon Dioxide 27 (22-30) mmol/L BUN 24 H (9-20) mg/dL Creatinine 0.94 (0.66-1.25) mg/dL Glucose 124 H (74-99) mg/dL Calcium 10.0 (8.4-10.2) mg/dL Adrenal panel 04/15/21 Range/Units 15:25 Sodium 137 (137-145) mmol/L Potassium 3.8 (3.5-5.1) mmol/L Chloride 98 (98-107) mmol/L Carbon Dioxide 27 (22-30) mmol/L BUN 24 H (9-20) mg/dL Creatinine 0.94 (0.66-1.25) mg/dL Glucose 124 H (74-99) mg/dL Calcium 10.0 (8.4-10.2) mg/dL Total Bilirubin 1.1 (0.2-1.3) mg/dL AST 22 (17-59) U/L ALT 21 (4-49) U/L Alkaline Phosphatase 96 (38-126) U/L Total Protein 7.7 (6.3-8.2) g/dL Albumin 4.4 (3.5-5.0) g/dL - Imaging CT scan - pelvis: report reviewed (Mechanical small bowel structure) Assessment and Plan Assessment: Small bowel obstruction. Patient will received nasogastric tube decompression. He'll be planned for surgery in the a.m.
--- NOTE | 2021-04-16 16:49 | XR ---
EXAMINATION TYPE: XR chest 1V portable DATE OF EXAM: 04/16/2021 COMPARISON: June 03, 2018 HISTORY: Short of breath TECHNIQUE: FINDINGS: There is some mild linear density at the lung bases. There is no heart failure. There are n o hilar masses. There are cervical spine fusion surgery. There is nasogastric tube in the stomach. IMPRESSION: Subsegmental atelectasis at the lung bases appears new compared to the old exam. Normal h eart.
[2021-04-16] MEDS: AMITRIPTYLINE HCL 10 MG TAB PO SCH (19:36)
[2021-04-16] MEDS: MIRTAZAPINE 15 MG TAB PO SCH (19:36)
[2021-04-16] MEDS: HEPARIN SODIUM,PORCINE/PF 5,000 UNIT/0.5 ML SYRINGE SQ SCH (19:37)
--- NOTE | 2021-04-16 20:18 | CONS ---
CONSULTATION REASON FOR CONSULTATION: Advice regarding COPD and other medical issues, requested by Dr. Elizabeth. HISTORY OF PRESENT ILLNESS: This 60-year-old gentleman with a past medical history of COPD was admitted with abdominal pain. Evaluation showed features of small-bowel obstruction. Patient is slated for surgery tomorrow. There is no history of any fever, rigors or chills, chest pain, palpitations, headache, loss of consciousness, seizures. PAST MEDICAL HISTORY: History of COPD, history of HIV, cellulitis. HOME MEDICATIONS: Plavix, Hyzaar, Synthroid, Stribild. Rest of the medications and doses are reviewed. ALLERGIES: NONE. FAMILY HISTORY: No history of heart disease or strokes in the family. SOCIAL HISTORY: History of smoking. REVIEW OF SYSTEMS: Fourteen-point review of systems negative except as mentioned earlier. PHYSICAL EXAMINATION: Pulse is 98, blood pressure 93/, respirations 16, temperature 98.1. HEENT: Conjunctivae normal. NECK: No jugular venous distention. CARDIOVASCULAR: S1, S2 muffled. RESPIRATION: Breath sounds diminished at the bases. A few scattered rhonchi. ABDOMEN: Soft. Mild diffuse distention present. Mild diffuse discomfort. No mass palpable. LEGS: No edema. No swelling. NERVOUS SYSTEM: No focal deficit. SKIN: No ulcer, rash, bleeding. JOINTS: No active deforming arthropathy. LABS: WBC 13.2, hemoglobin 16. Other labs are reviewed. ASSESSMENT: 1. Acute small-bowel obstruction. 2. Chronic obstructive pulmonary disease. 3. HIV. RECOMMENDATIONS AND DISCUSSION: In this 60-year-old gentleman who presented with multiple medical issues, at this time I recommend to continue the current medications, continue symptomatic treatment. Resume the home medications. Otherwise, the patient is cleared for surgery. We will monitor the patient closely. Repeat labs. DVT prophylaxis. The patient may be asked to follow up with primary physician in the outpatient setting. Thank you, Dr. Elizabeth. MMREMBERTOL / IJN: [id number] / SUSSY
[2021-04-17] MEDS: HYDROmorphone 1 MG/ML 1 ML SYRINGE IVP PRN ×4 (04:09→22:58)
[2021-04-17] MEDS: LEVOTHYROXINE 50 MCG TAB PO SCH (05:29)
[2021-04-17] MEDS: ASCORBIC ACID 500 MG TAB PO SCH (07:50)
[2021-04-17] MEDS: ATORVASTATIN 20 MG TAB PO SCH (07:50)
[2021-04-17] MEDS: MULTIVITAMINS, THERA 1 EACH TAB PO SCH (07:50)
[2021-04-17] MEDS: POTASSIUM CHLORIDE ER 10 MEQ TAB.ER.PRT PO SCH (07:50)
[2021-04-17] MEDS: LOSARTAN-HCTZ 50-12.5 MG 1 EACH TAB PO SCH (07:51)
[2021-04-17] MEDS: [UNRECOGNIZED DRUG - OTHER] PO SCH (07:51)
[2021-04-17] MEDS: FLUTICASONE 50MCG/SPRAY NASAL 16GM EA NOSTRIL SCH (07:52)
[2021-04-17] MEDS: PANTOPRAZOLE 40 MG/10 ML VIAL IV SCH (07:52)
[2021-04-17] MEDS: NICOTINE 21MG/24HR PATCH TRANSDERM SCH (07:53)
[2021-04-17] MEDS: SODIUM CHLORIDE 0.9% 1,000 ML IV SCH ×3 (08:02→23:50)
[2021-04-17 09:05] LABS: HCT 46.1 % (39.6-50.0); HGB 14.2 g/dL (13.0-17.0); MCH 29.4 pg (27.0-32.0); MCHC 30.8 g/dL (32.0-37.0); MCV 95.4 fL (80.0-97.0); Mean Platelet Volume 9.7 fL (9.5-12.2); NRBC Per 100 WBC 0 /100 WBCS (0.0-0.0); Platelet Count 386 X 10*3/uL (140-440); RBC 4.83 X 10*6/uL (4.40-5.60); RDW 15.3 % (11.5-14.5); WBC 6.96 X 10*3/uL (4.50-10.00)
[2021-04-17] MEDS: IPRATROPIUM-ALBUTEROL 3 ML NEB INHALATION SCH ×4 (09:13→19:05)
[2021-04-17] MEDS: CLOPIDOGREL 75 MG TAB PO SCH (09:15)
[2021-04-17] MEDS: HEPARIN SODIUM,PORCINE/PF 5,000 UNIT/0.5 ML SYRINGE SQ SCH ×2 (09:15→19:55)
[2021-04-17 09:20] LABS: African American GFR (CKD) 84.7 (60.0-200.0); Albumin 3.6 g/dL (3.8-4.9); Albumin/Globulin Ratio 1.29 (1.60-3.17); Anion Gap 14.8 mmol/L (10.00-18.00); BUN/Creat Ratio 24.55 Ratio (12.00-20.00); Calcium 8.9 mg/dL (8.7-10.3); Carbon Dioxide 26.2 mmol/L (20.0-27.5); Globulin 2.8 g/dL (1.6-3.3); Non-African American GFR(CKD) 73.1 (60.0-200.0); Potassium 4.1 mmol/L (3.5-5.5); Total Bilirubin 0.6 mg/dL (0.30-1.20); Total Protein 6.4 g/dL (6.2-8.2)
[2021-04-17 11:12] LABS: Basophils # (A) 0.07 X 10*3/uL (0.00-0.10); Eosinophils # (A) 0.16 X 10*3/uL (0.04-0.35); Eosinophils % (A) 2.3 %; Immature Grans, Automated 0.3 %; Lymphocytes # (A) 1.86 X 10*3/uL (0.90-5.00); Lymphocytes % (A) 26.7 %; Monocytes # (A) 1.32 X 10*3/uL (0.20-1.00); Neutrophils # (A) 3.53 X 10*3/uL (1.80-7.70); Neutrophils % (A) 50.7 %; RBC Morphology NORMAL
[2021-04-17 13:04] VITALS: BMI 28.2
[2021-04-17] MEDS ORDERED: IV FLUID CONTINUATION 1,000 ML IV ONE (15:00)
[2021-04-17] MEDS ORDERED: DEXAMETHASONE SOD PHOSPHATE 4 MG/ML 1 ML VIAL IVP ONE (15:43)
[2021-04-17] MEDS ORDERED: ONDANSETRON 4 MG/2 ML VIAL IVP ONE (15:44)
[2021-04-17] MEDS ORDERED: HEPARIN SODIUM,PORCINE 5,000 UNIT/ML 1 ML VIAL SQ ONE (15:44)
[2021-04-17 15:56] LABS: Glucose,Whole Blood 74 mg/dL (75-99)
[2021-04-17] MEDS ORDERED: PHENYLEPHRINE-0.9% NACL SYG 1,000 MCG/10 ML SYRINGE ONE (16:10)
[2021-04-17] MEDS ORDERED: ROCURONIUM 10 MG/ML (5 ML VIAL) IV ONE (16:10)
[2021-04-17] MEDS ORDERED: MIDAZOLAM 2 MG/2 ML VIAL ONE (16:10)
[2021-04-17] MEDS ORDERED: NEOSTIGMINE 1 MG/ML 10 ML VIAL ONE (16:10)
[2021-04-17] MEDS ORDERED: GLYCOPYRROLATE 0.2 MG/ML 2 ML VIAL ONE (16:10)
[2021-04-17] MEDS ORDERED: SUCCINYLCHOLINE CHLORIDE 100 MG/5 ML SYR IV ONE (16:10)
[2021-04-17] MEDS ORDERED: LIDOCAINE 1% INJ 10MG/ML (20 ML MDV) ONE (16:10)
[2021-04-17] MEDS ORDERED: PROPOFOL 10 MG/ML 20 ML VIAL IV ONE (16:10)
[2021-04-17] MEDS ORDERED: fentaNYL (PF) 50 MCG/ML 2 ML AMP ONE (16:10)
[2021-04-17] MEDS ORDERED: SODIUM CHLORIDE 0.9% 50 ML with ceFAZolin 2,000 MG IV ONE ×2 (16:14)
[2021-04-17] MEDS ORDERED: LACTATED RINGERS 1,000 ML IV ONE ×2 (16:41→19:00)
--- NOTE | 2021-04-17 17:18 | P.OP ---
Date of Procedure: 04/17/21 Preoperative Diagnosis: Small bowel obstruction Postoperative Diagnosis: Small bowel obstruction Incisional hernia Adhesions Procedure(s) Performed: Exploratory laparotomy Lysis of adhesions Small bowel resection Repair of incisional hernia Removal of abdominal wall prosthetic material Anesthesia: DONNY Surgeon: Suraj Elizabeth Estimated Blood Loss (ml): 25 Pathology: other (Small bowel, abdominal wall prosthetic material) Condition: stable Disposition: floor Description of Procedure: The patient's placed on the operative table in the supine position. He received general endotracheal anesthesia. His abdomen was prepped and draped usual fashion. The patient a previous midline scar. The skin was incised along the scar extended cephalad. Using left cautery the subcutaneous tissue divided divided. And the abdominal wall was divided. There was a small incisional hernia located above his scar. The scar was then divided midline. There were adhesions to the anterior abdominal wall. These were lysed and sharp dissection. The small bowel was adherent to the abdominal wall were previous prosthetic material in place. The small bowel was matted. This was the area of the obstruction. Small bowel was run proximally to the trochars limited Treitz. And then distally to the terminal ileum. At this point the adhesions were lysed. Approximately 20 was wrapped time used to lyse adhesions. The small bowel was then transected proximally distally to the obstruction. Using the Enseal device the mesentery the bowel was divided. There was some sort of prosthetic material placed abdominal wall. This was removed piecemeal in the area of his previous hernia. The small bowel was then reanastomosed using the FRANCESCA and TA stapler in a [id number] functional end-to-end staple anastomosis.. Then a window in the mesentery was closed with 3-0 GI silk sutures. The abdomen was irrigated there is no bleeding seen. The fascia was then closed with looped #1 PDS suture. The small incisional hernia that was noted was closed during fascial closure. Skin was closed jerzy. Patient top she will was sent to recovery room stable condition.
--- NOTE | 2021-04-17 17:21 | PN ---
PROGRESS NOTE DATE OF SERVICE: 04/17/2021 This 60-year-old gentleman who was admitted with acute small bowel obstruction is slated for surgery today. Complaining abdominal pain and distention. No chest pain. No palpitation. PHYSICAL EXAMINATION: Pulse is 89, blood pressure 104/59, respiration 20, temperature 98.8. HEENT: Conjunctivae normal. CARDIOVASCULAR: S1, S2 muffled. RESPIRATION: Breath sounds diminished at the bases. A few scattered rhonchi. ABDOMEN: Soft. Distention. Diffusely tender. Bowel sounds diminished. LEGS: No edema. No swelling. LABS: CBC normal. Otherwise, glucose 74. ASSESSMENT: 1. Acute small bowel obstruction for surgery. 2. Chronic obstructive pulmonary disease. 3. Hypertension. RECOMMENDATIONS AND DISCUSSION: I recommend to continue current medications, continue with the monitoring, symptomatic treatment. DVT prophylaxis. Incentive spirometry. Pain management. Surgical evaluation. See orders for further details. MMODL / IJN: [id number] /
[2021-04-17] MEDS ORDERED: HYDROmorphone 0.5 MG/0.5 ML SYRINGE IVP ONE ×2 (17:50→18:50)
[2021-04-17] MEDS: MIRTAZAPINE 15 MG TAB PO SCH (22:39)
[2021-04-17] MEDS: AMITRIPTYLINE HCL 10 MG TAB PO SCH (23:41)
[2021-04-18] MEDS: HYDROmorphone 1 MG/ML 1 ML SYRINGE IVP PRN ×3 (04:30→12:16)
[2021-04-18] MEDS: SODIUM CHLORIDE 0.9% 1,000 ML IV SCH ×5 (06:00→22:41)
[2021-04-18] MEDS: LEVOTHYROXINE 50 MCG TAB PO SCH (06:00)
[2021-04-18] MEDS: IPRATROPIUM-ALBUTEROL 3 ML NEB INHALATION SCH ×4 (08:18→20:38)
[2021-04-18 08:50] LABS: Basophils % (A) 0 %; Eosinophils % (A) 0 %; HGB 13.9 gm/dL (13.0-17.5); Hypochromasia Slight; Lymphocytes # (A) 1.4 k/uL (1.0-4.8); Lymphocytes % (A) 10 %; MCH 30.7 pg (25.0-35.0); MCHC 31.6 g/dL (31.0-37.0); Monocytes # (A) 0.9 k/uL (0-1.0); Monocytes % (A) 7 %; Neutrophils # (A) 11.4 k/uL (1.3-7.7); Neutrophils % (A) 81 %; Platelet Count 438 k/uL (150-450); RBC 4.54 m/uL (4.30-5.90); RDW 14.7 % (11.5-15.5)
[2021-04-18] MEDS: ASCORBIC ACID 500 MG TAB PO SCH (08:55)
[2021-04-18] MEDS: POTASSIUM CHLORIDE ER 10 MEQ TAB.ER.PRT PO SCH (08:58)
[2021-04-18] MEDS: LOSARTAN-HCTZ 50-12.5 MG 1 EACH TAB PO SCH (08:58)
[2021-04-18] MEDS: MULTIVITAMINS, THERA 1 EACH TAB PO SCH (08:58)
[2021-04-18] MEDS: CLOPIDOGREL 75 MG TAB PO SCH (08:58)
[2021-04-18] MEDS: ATORVASTATIN 20 MG TAB PO SCH (08:58)
[2021-04-18] MEDS: PANTOPRAZOLE 40 MG/10 ML VIAL IV SCH (08:59)
[2021-04-18] MEDS: [UNRECOGNIZED DRUG - OTHER] PO SCH (08:59)
[2021-04-18] MEDS: NICOTINE 21MG/24HR PATCH TRANSDERM SCH (09:00)
[2021-04-18] MEDS: ENOXAPARIN 40 MG/0.4 ML SYRINGE SQ SCH (09:00)
[2021-04-18] MEDS: FLUTICASONE 50MCG/SPRAY NASAL 16GM EA NOSTRIL SCH (09:01)
[2021-04-18 09:15] LABS: African American GFR (CKD) >90 (>60 ml/min/1.73 sqM); Anion Gap 9 mmol/L; Blood Urea Nitrogen 19 mg/dL (9-20); Calcium 8.4 mg/dL (8.4-10.2); Carbon Dioxide 27 mmol/L (22-30); Chloride 102 mmol/L (98-107); Glucose 113 mg/dL (74-99); Non-African American GFR(CKD) >90 (>60 ml/min/1.73 sqM); Potassium 4.4 mmol/L (3.5-5.1); Sodium 138 mmol/L (137-145)
--- NOTE | 2021-04-18 13:26 | XR ---
EXAMINATION TYPE: XR chest 1V portable DATE OF EXAM: 04/18/2021 COMPARISON: 04/16/2021 HISTORY: Abnormal x-ray TECHNIQUE: Single frontal view of the chest is obtained. FINDINGS: Bilateral subsegmental consolidation. NG tube noted. Postsurgical change of the cervical s pine. Chronic deformity of the right clavicle at approximately bilateral shoulders. No overt failure pneumothorax. Heart size normal. IMPRESSION: 1. Stable bilateral atelectasis or infiltrate.
--- NOTE | 2021-04-18 14:18 | P.PN ---
Subjective Progress Note Date: 04/18/21 CHIEF COMPLAINT: Small bowel obstruction HISTORY OF PRESENT ILLNESS: Patient is status post exploratory laparotomy, lysis of adhesions, small bowel resection, repair of incisional hernia and removal of abdominal wall prosthetic material for small bowel obstruction, incisional hernia and adhesions. Postop day #1. Patient is currently sitting at bedside chair. NG tube with about 100 mL of yellowish output. Denies any flatus or bowel movement. Denies any nausea. Reports his pain is controlled. Afebrile. WBC is 14 hemoglobin 13.9 platelets 438 PHYSICAL EXAM: VITAL SIGNS: Reviewed. GENERAL: Well-developed in no acute distress. HEENT: No sclera icterus. Extraocular movements grossly intact. Moist buccal mucosa. Head is atraumatic, normocephalic. ABDOMEN: Soft. Incisional dressing with minimal amount of dried blood noted. Mildly distended. NEUROLOGIC: Alert and oriented. Cranial nerves II through XII grossly intact. ASSESSMENT: 1. Status post exploratory laparotomy, lysis of adhesions, small bowel resection, repair of incisional hernia and removal of abdominal wall prosthetic material for small bowel obstruction, incisional hernia and adhesions PLAN: -Continue NG tube for decompression -Keep patient nothing by mouth -Continue IV fluids -Continue pain medication as needed -Continue supportive care -Encouraged patient to increase activity level -Encouraged patient to use incentive spirometer -GI prophylaxis Protonix and DVT prophylaxis Lovenox Physician Jig Borer note has been reviewed by physician. Signing provider agrees with the documented findings, assessment, and plan of care. Objective - Vital Signs Vital signs: Vital Signs Temp 97.6 F 04/18/21 08:00 Pulse 96 04/18/21 11:36 Resp 16 04/18/21 08:40 BP 132/82 04/18/21 08:00 Pulse Ox 94 L 04/18/21 08:00 Intake & Output 04/17/21 04/18/21 04/18/21 18:59 06:59 18:59 Intake Total 1050 Output Total 230 1000 1100 Balance 820 -1000 -1100 Weight 99.79 kg Intake: IV 1050 Output: Gastric Drainage 200 250 Drainage 1100 Left Nare 1100 Urine 750 Estimated Blood Loss 30 Other: Voiding Method Toilet Indwelling Catheter Indwelling Catheter Urinal - Labs CBC & Chem 7: 04/18/21 08:30 04/18/21 08:30 Labs: Abnormal Lab Results - Last 24 Hours (Table) 04/17/21 04/18/21 04/18/21 Range/Units 15:49 08:30 08:30 WBC 14.0 H (3.8-10.6) k/uL Neutrophils # 11.4 H (1.3-7.7) k/uL Glucose 113 H (74-99) mg/dL POC Glucose (mg/dL) 74 L (75-99) mg/dL Microbiology - Last 24 Hours (Table) 04/16/21 03:43 Blood Culture - Preliminary Blood No Growth after 48 hours
--- NOTE | 2021-04-18 15:13 | PN ---
PROGRESS NOTE DATE OF SERVICE: 04/18/2021 This 60-year-old gentleman who was admitted with acute small-bowel obstruction underwent exploratory laparotomy, lysis of adhesions, small bowel resection, repair of incisional hernia, and removal of abdominal wall prosthetic material by Dr. Elizabeth. No chest pain. No palpitations. Patient has an NG tube. PHYSICAL EXAMINATION: Pulse 85, blood pressure 133/85, respiration 16, pulse ox 94% on 3 L. HEENT: Conjunctivae normal. CARDIOVASCULAR: S1, S2 muffled. RESPIRATION: A few scattered rhonchi. ABDOMEN: Soft. Status post surgery. LEGS: No edema. No swelling. LABS: WBC 14. Other labs are noted. ASSESSMENT: 1. Acute small-bowel obstruction, status post exploratory laparotomy, lysis of adhesions, small-bowel resection. 2. Chronic obstructive pulmonary disease. 3. Hypertension. RECOMMENDATIONS AND DISCUSSION: I recommend to continue current medications, continue with the monitoring, symptomatic treatment. Continue with the bronchodilators, incentive spirometry. Repeat chest x- ray. See orders for further details. MMODL / IJN: [id number] /
[2021-04-18] MEDS: SYMBICORT 160-4.5 MCG INHALER INHALATION SCH (20:38)
[2021-04-18] MEDS: AMITRIPTYLINE HCL 10 MG TAB PO SCH (21:17)
[2021-04-18] MEDS: MIRTAZAPINE 15 MG TAB PO SCH (21:17)
[2021-04-19] MEDS: HYDROmorphone 1 MG/ML 1 ML SYRINGE IVP PRN ×2 (00:25→20:45)
[2021-04-19] MEDS: SODIUM CHLORIDE 0.9% 1,000 ML IV SCH ×6 (03:30→20:46)
[2021-04-19] MEDS: LEVOTHYROXINE 50 MCG TAB PO SCH (06:04)
[2021-04-19] MEDS: SYMBICORT 160-4.5 MCG INHALER INHALATION SCH ×2 (07:38→21:40)
[2021-04-19] MEDS: IPRATROPIUM-ALBUTEROL 3 ML NEB INHALATION SCH ×4 (07:38→21:30)
[2021-04-19 09:28] LABS: HGB 12.5 g/dL (13.0-17.0); MCH 29.8 pg (27.0-32.0); MCHC 31.3 g/dL (32.0-37.0); MCV 95.5 fL (80.0-97.0); Mean Platelet Volume 10.2 fL (9.5-12.2); NRBC Per 100 WBC 0 /100 WBCS (0.0-0.0); Platelet Count 420 X 10*3/uL (140-440); RBC 4.19 X 10*6/uL (4.40-5.60); RDW 15.1 % (11.5-14.5); WBC 15.44 X 10*3/uL (4.50-10.00)
[2021-04-19 09:42] LABS: African American GFR (CKD) 113.3 (60.0-200.0); Albumin 3.3 g/dL (3.8-4.9); Albumin/Globulin Ratio 1.32 (1.60-3.17); BUN/Creat Ratio 20.5 Ratio (12.00-20.00); Blood Urea Nitrogen 16.4 mg/dL (9.0-27.0); Calcium 8.5 mg/dL (8.7-10.3); Globulin 2.5 g/dL (1.6-3.3); Non-African American GFR(CKD) 97.8 (60.0-200.0); Potassium 4.1 mmol/L (3.5-5.5); Total Bilirubin 0.4 mg/dL (0.30-1.20); Total Protein 5.8 g/dL (6.2-8.2)
[2021-04-19] MEDS: LOSARTAN-HCTZ 50-12.5 MG 1 EACH TAB PO SCH (09:57)
[2021-04-19] MEDS: ENOXAPARIN 40 MG/0.4 ML SYRINGE SQ SCH (09:57)
[2021-04-19] MEDS: ASCORBIC ACID 500 MG TAB PO SCH (09:57)
[2021-04-19] MEDS: CLOPIDOGREL 75 MG TAB PO SCH (09:57)
[2021-04-19] MEDS: MULTIVITAMINS, THERA 1 EACH TAB PO SCH (09:57)
[2021-04-19] MEDS: NICOTINE 21MG/24HR PATCH TRANSDERM SCH (09:57)
[2021-04-19] MEDS: ATORVASTATIN 20 MG TAB PO SCH (09:57)
[2021-04-19] MEDS: [UNRECOGNIZED DRUG - OTHER] PO SCH (09:58)
[2021-04-19] MEDS: PANTOPRAZOLE 40 MG/10 ML VIAL IV SCH (10:00)
[2021-04-19] MEDS: FLUTICASONE 50MCG/SPRAY NASAL 16GM EA NOSTRIL SCH (10:00)
[2021-04-19] MEDS: POTASSIUM CHLORIDE ER 10 MEQ TAB.ER.PRT PO SCH (10:31)
[2021-04-19 11:11] LABS: Basophils # (A) 0.08 X 10*3/uL (0.00-0.10); Basophils % (A) 0.5 %; Eosinophils # (A) 0.02 X 10*3/uL (0.04-0.35); Eosinophils % (A) 0.1 %; Immature Grans, Automated 1.4 %; Lymphocytes # (A) 2.04 X 10*3/uL (0.90-5.00); Lymphocytes % (A) 13.2 %; Monocytes # (A) 1.94 X 10*3/uL (0.20-1.00); Monocytes % (A) 12.6 %; Neutrophils # (A) 11.14 X 10*3/uL (1.80-7.70); Neutrophils % (A) 72.2 %
--- NOTE | 2021-04-19 13:26 | P.PN ---
Subjective Progress Note Date: 04/19/21 CHIEF COMPLAINT: Small bowel obstruction HISTORY OF PRESENT ILLNESS: Patient is status post exploratory laparotomy, lysis of adhesions, small bowel resection, repair of incisional hernia and removal of abdominal wall prosthetic material for small bowel obstruction, incisional hernia and adhesions. Postop day #2. Patient is currently sitting at bedside chair. Patient is having flatus. NG tube with a lot of output through the night due to patient taking and ice chips. Afebrile WBC is up from 14-15.44 hemoglobin 12.5 platelets and 0.8 PHYSICAL EXAM: VITAL SIGNS: Reviewed. GENERAL: Well-developed in no acute distress. HEENT: No sclera icterus. Extraocular movements grossly intact. Moist buccal mucosa. Head is atraumatic, normocephalic. ABDOMEN: Soft. Incisional dressing with minimal amount of dried blood noted. Mildly distended. NEUROLOGIC: Alert and oriented. Cranial nerves II through XII grossly intact. ASSESSMENT: 1. Status post exploratory laparotomy, lysis of adhesions, small bowel resection, repair of incisional hernia and removal of abdominal wall prosthetic material for small bowel obstruction, incisional hernia and adhesions 2. Leukocytosis continue to monitor PLAN: -Discontinue NG tube -Start clear liquid diet -Add oral pain medication -Continue IV fluids -Continue pain medication as needed -Continue supportive care -Encouraged patient to increase activity level -Encouraged patient to use incentive spirometer -GI prophylaxis Protonix and DVT prophylaxis Lovenox Physician Director [employer] note has been reviewed by physician. Signing provider agrees with the documented findings, assessment, and plan of care. Objective - Vital Signs Vital signs: Vital Signs Temp 98.8 F 04/19/21 00:33 Pulse 88 04/19/21 12:13 Resp 18 04/19/21 07:57 BP 124/71 04/19/21 07:57 Pulse Ox 90 L 04/19/21 07:57 Intake & Output 04/18/21 04/19/21 04/19/21 18:59 06:59 18:59 Intake Total 0 900 0 Output Total 1950 2520 Balance -1950 -1620 0 Intake: Intake, IV Titration 900 Amount Sodium Chloride 0.9% 1, 900 000 ml @ 75 mls/hr IV . [id number] [facility] Rx#:[id number] Oral 0 0 Output: Gastric Drainage 850 1700 Drainage 1100 Left Nare 1100 Urine 820 Uretheral ([place]) 700 Other: Voiding Method Indwelling Catheter Indwelling Catheter Toilet # Voids 2 - Labs CBC & Chem 7: 04/19/21 04:26 04/19/21 04:26 Labs: Abnormal Lab Results - Last 24 Hours (Table) 04/19/21 04/19/21 Range/Units 04:26 04:26 WBC 15.44 H (4.50-10.00) X 10*3/uL RBC 4.19 L (4.40-5.60) X 10*6/uL Hgb 12.5 L (13.0-17.0) g/dL MCHC 31.3 L (32.0-37.0) g/dL RDW 15.1 H (11.5-14.5) % Immature Gran # 0.22 H (0.00-0.04) X 10*3/uL Neutrophils # 11.14 H (1.80-7.70) X 10*3/uL Monocytes # 1.94 H (0.20-1.00) X 10*3/uL Eosinophils # 0.02 L (0.04-0.35) X 10*3/uL BUN/Creatinine Ratio 20.50 H (12.00-20.00) Ratio Calcium 8.5 L (8.7-10.3) mg/dL Total Protein 5.8 L (6.2-8.2) g/dL Albumin 3.3 L (3.8-4.9) g/dL Albumin/Globulin Ratio 1.32 L (1.60-3.17) g/dL Microbiology - Last 24 Hours (Table) 04/16/21 03:43 Blood Culture - Preliminary Blood No Growth after 72 hours
[2021-04-19] MEDS: AMITRIPTYLINE HCL 10 MG TAB PO SCH (20:45)
[2021-04-19] MEDS: MIRTAZAPINE 15 MG TAB PO SCH (20:46)
[2021-04-20] MEDS ORDERED: ONDANSETRON 4 MG/2 ML VIAL IVP STA (04:45)
[2021-04-20] MEDS ORDERED: diphenhydrAMINE 50 MG/ML 1 ML VIAL IVP STA (04:45)
[2021-04-20] MEDS: IPRATROPIUM-ALBUTEROL 3 ML NEB INHALATION SCH ×4 (07:15→20:15)
[2021-04-20] MEDS: SYMBICORT 160-4.5 MCG INHALER INHALATION SCH ×2 (07:15→20:15)
[2021-04-20] MEDS: SODIUM CHLORIDE 0.9% 1,000 ML IV SCH ×2 (07:46→12:01)
[2021-04-20] MEDS: ONDANSETRON 4 MG/2 ML VIAL IVP PRN ×3 (08:30→23:40)
--- NOTE | 2021-04-20 09:19 | P.PN ---
Subjective Progress Note Date: 04/19/21 04/19/2021 This is a 60-year-old male who was recently admitted under surgical services for acute small bowel obstruction and underwent exploratory laparotomy, lysis of adhesions and small bowel resection with repair of incisional hernia and removal of abdominal wall prosthetic with Dr. Elizabeth. Patient continues on ice chips only and continues with NG tube and is requesting if it can be removed. Patient reports the passing gas and denies any increasing abdominal pain. Patient states his discomfort is with the NG tube. Patient denies chest pain, shortness of breath, or palpitations. Patient is afebrile. Patient continues on gentle IV hydration Review of systems: Constitutional: No reports of fatigue, fever, or chills Cardiovascular: No reports of chest pain or palpitations Respiratory: No reports of shortness of breath or cough GI: No reports of nausea, vomiting, or diarrhea : No reports of dysuria or retention Neurovascular: No reports of weakness or numbness All medications have been reviewed Active Medications Hydrocodone Bitart/Acetaminophen (Hydrocodone/Apap 5-325mg 1 Each Tab) 1 each PO Q4HR PRN PRN Reason: moderate Pain Albuterol Sulfate (Albuterol Nebulized 2.5 Mg/3 Ml) 2.5 mg INHALATION RT-Q6H PRN PRN Reason: Shortness Of Breath Last Admin: 04/16/21 04:43 Dose: 2.5 mg Documented by: Albuterol/Ipratropium (Ipratropium-Albuterol 3 Ml Neb) 3 ml INHALATION RT-QID [facility] Last Admin: 04/20/21 07:15 Dose: Not Given Documented by: Amitriptyline HCl (Amitriptyline Hcl 10 Mg Tab) 40 mg PO HS [facility] Last Admin: 04/19/21 20:45 Dose: 40 mg Documented by: Ascorbic Acid (Ascorbic Acid 500 Mg Tab) 1,000 mg PO DAILY [facility] Last Admin: 04/19/21 09:57 Dose: 1,000 mg Documented by: Atorvastatin Calcium (Atorvastatin 20 Mg Tab) 20 mg PO DAILY [facility] Last Admin: 04/19/21 09:57 Dose: 20 mg Documented by: Budesonide/Formoterol Fumarate (Symbicort 160-4.5 Mcg Inhaler) 2 puff INHALATION RT-BID [facility] Last Admin: 04/20/21 07:15 Dose: Not Given Documented by: Clopidogrel Bisulfate (Clopidogrel 75 Mg Tab) 75 mg PO DAILY [facility] Last Admin: 04/19/21 09:57 Dose: 75 mg Documented by: Enoxaparin Sodium (Enoxaparin 40 Mg/0.4 Ml Syringe) 40 mg SQ DAILY [facility] Last Admin: 04/19/21 09:57 Dose: 40 mg Documented by: Fluticasone Propionate (Fluticasone 50mcg/Miller Nasal 16gm) 1 spray EA NOSTRIL DAILY [facility] Last Admin: 04/19/21 10:00 Dose: 1 spray Documented by: HCTZ/Losartan Potassium (Losartan-Hctz 50-12.5 Mg 1 Each Tab) 1 each PO DAILY [facility] Last Admin: 04/19/21 09:57 Dose: 1 each Documented by: Hydromorphone HCl (Hydromorphone 1 Mg/Ml 1 Ml Syringe) 0.5 mg IVP Q3HR PRN PRN Reason: Moderate Pain Last Admin: 04/17/21 19:54 Dose: 0.5 mg Documented by: Hydromorphone HCl (Hydromorphone 1 Mg/Ml 1 Ml Syringe) 1 mg IVP Q3HR PRN PRN Reason: Severe Pain Last Admin: 04/19/21 20:45 Dose: 1 mg Documented by: Sodium Chloride (Saline 0.9%) 1,000 mls @ 75 mls/hr IV .[id number] [facility] Last Admin: 04/19/21 20:46 Dose: 75 mls/hr Documented by: Sodium Chloride (Saline 0.9%) 1,000 mls @ 130 mls/hr IV .[id number] [facility] Last Admin: 04/20/21 07:46 Dose: Not Given Documented by: Levothyroxine Sodium (Levothyroxine 50 Mcg Tab) 50 mcg PO DAILY@0630 [facility] Last Admin: 04/19/21 06:04 Dose: Not Given Documented by: Mirtazapine (Mirtazapine 15 Mg Tab) 30 mg PO HS [facility] Last Admin: 04/19/21 20:46 Dose: 30 mg Documented by: Multivitamins (Multivitamins, Thera 1 Each Tab) 1 each PO DAILY [facility] Last Admin: 04/19/21 09:57 Dose: 1 each Documented by: Naloxone HCl (Naloxone 0.4 Mg/Ml 1 Ml Vial) 0.2 mg IV Q2M PRN PRN Reason: Opioid Reversal Nicotine (Nicotine 21mg/24hr Patch) 1 patch TRANSDERM DAILY [facility] Last Admin: 04/19/21 09:57 Dose: 1 patch Documented by: Non-Formulary Medication (Elviteg/Donna/Emtric/Tenofo Dis [Stribild Tablet]) 1 tab PO DAILY [facility] Last Admin: 04/19/21 09:58 Dose: 1 tab Documented by: Ondansetron HCl (Ondansetron 4 Mg/2 Ml Vial) 4 mg IVP Q6HR PRN PRN Reason: Nausea And Vomiting Last Admin: 04/20/21 08:30 Dose: 4 mg Documented by: Pantoprazole Sodium (Pantoprazole 40 Mg/10 Ml Vial) 40 mg IV DAILY [facility] Last Admin: 04/19/21 10:00 Dose: 40 mg Documented by: Potassium Chloride (Potassium Chloride Er 10 Meq Tab.Er.Prt) 10 meq PO DAILY [facility] Last Admin: 04/19/21 10:31 Dose: Not Given Documented by: PHYSICAL EXAMINATION: GENERAL: The patient is alert and oriented x4, Well developed, well nourished. HEENT: Pupils are round and equally reacting to light. EOMI. does have scleral icterus. No conjunctival pallor. Normocephalic, atraumatic. No pharyngeal erythema. No thyromegaly. NG tube noted CARDIOVASCULAR: S1 and S2 muffled PULMONARY: diminished breath sounds bilaterally with Few scattered rhonchi noted. ABDOMEN: soft. obese. Non-distended, normoactive bowel sounds. No palpable organomegaly. MUSCULOSKELETAL: No joint swelling or deformity. EXTREMITIES: No cyanosis, clubbing, or pedal edema. NEUROLOGICAL: Gross neurological examination did not reveal any focal deficits. SKIN: No rashes. Assessment: Acute small bowel obstruction, status post expiratory laparotomy, lysis of adhesions, small bowel resection Chronic obstructive pulmonary disease hypertension GI prophylaxis DVT prophylaxis Plan: Recommend to continue with gentle IV hydration and patient is maintained on ice chips. She continues with NG tube and asking for it to be removed and will likely remove per general surgery today. Encouraged increase activity as tolerated and continue with incentive spirometer use at least 10 times every hour while awake has chest x-ray shows stable bilateral atelectasis or infiltrate. Patient is afebrile. White blood count mildly elevated at 15.44 and recommend repeat labs in the morning. Patient continues on 3-4 L via nasal cannula and encouraged increase activity and continued coughing and deep breathing along with incentive spirometer. Will decrease the dose of normal saline infusion. Will continue to follow along with surgery during hospitalization. Prognosis is guarded. The impression and plan of care has been dictated by Marzena Moore, nurse practitioner as directed. MD Leydi I have performed a history and examination and MDM of this patient, discussed the same with the dictator, and agree with the dictator's assessment and plan as written ,documented as a scribe. Based on total visit time, I have performed more than 50% of the visit. Any additional findings or plans will be noted. Objective - Vital Signs Vital signs: Vital Signs Temp 98.8 F 04/19/21 00:33 Pulse 89 04/19/21 07:57 Resp 18 04/19/21 07:57 BP 124/71 04/19/21 07:57 Pulse Ox 90 L 04/19/21 07:57 Intake & Output 04/18/21 04/19/21 04/19/21 18:59 06:59 18:59 Intake Total 0 900 0 Output Total 1950 2520 Balance -1950 -1620 0 Intake: Intake, IV Titration 900 Amount Sodium Chloride 0.9% 1, 900 000 ml @ 75 mls/hr IV . [id number] [facility] Rx#:[id number] Oral 0 0 Output: Gastric Drainage 850 1700 Drainage 1100 Left Nare 1100 Urine 820 Uretheral ([place]) 700 Other: Voiding Method Indwelling Catheter Indwelling Catheter # Voids 2 - Labs CBC & Chem 7: 04/19/21 04:26 04/19/21 04:26 Labs: Abnormal Lab Results - Last 24 Hours (Table) 04/18/21 Range/Units 08:30 Glucose 113 H (74-99) mg/dL Microbiology - Last 24 Hours (Table) 04/16/21 03:43 Blood Culture - Preliminary Blood No Growth after 72 hours
[2021-04-20] MEDS: NICOTINE 21MG/24HR PATCH TRANSDERM SCH (09:26)
[2021-04-20] MEDS: MULTIVITAMINS, THERA 1 EACH TAB PO SCH (09:26)
[2021-04-20] MEDS: ATORVASTATIN 20 MG TAB PO SCH (09:26)
[2021-04-20] MEDS: POTASSIUM CHLORIDE ER 10 MEQ TAB.ER.PRT PO SCH (09:26)
[2021-04-20] MEDS: CLOPIDOGREL 75 MG TAB PO SCH (09:27)
[2021-04-20] MEDS: LOSARTAN-HCTZ 50-12.5 MG 1 EACH TAB PO SCH (09:27)
[2021-04-20] MEDS: LEVOTHYROXINE 50 MCG TAB PO SCH (09:27)
[2021-04-20] MEDS: ASCORBIC ACID 500 MG TAB PO SCH (09:27)
[2021-04-20] MEDS: ENOXAPARIN 40 MG/0.4 ML SYRINGE SQ SCH (09:27)
[2021-04-20] MEDS: [UNRECOGNIZED DRUG - OTHER] PO SCH (09:28)
[2021-04-20] MEDS: PANTOPRAZOLE 40 MG/10 ML VIAL IV SCH (09:28)
[2021-04-20 09:38] LABS: Basophils # (A) 0.06 X 10*3/uL (0.00-0.10); Basophils % (A) 0.4 %; Eosinophils # (A) 0.16 X 10*3/uL (0.04-0.35); Eosinophils % (A) 1.1 %; HGB 12.5 g/dL (13.0-17.0); Immature Grans, Automated 1.9 %; Lymphocytes # (A) 1.87 X 10*3/uL (0.90-5.00); Lymphocytes % (A) 12.8 %; MCH 29.7 pg (27.0-32.0); MCHC 31.3 g/dL (32.0-37.0); Mean Platelet Volume 9.7 fL (9.5-12.2); Monocytes # (A) 1.93 X 10*3/uL (0.20-1.00); Monocytes % (A) 13.2 %; NRBC Per 100 WBC 0 /100 WBCS (0.0-0.0); Neutrophils # (A) 10.28 X 10*3/uL (1.80-7.70); Neutrophils % (A) 70.6 %; Platelet Count 427 X 10*3/uL (140-440); RBC 4.21 X 10*6/uL (4.40-5.60); RDW 15.7 % (11.5-14.5); WBC 14.58 X 10*3/uL (4.50-10.00)
[2021-04-20] MEDS: FLUTICASONE 50MCG/SPRAY NASAL 16GM EA NOSTRIL SCH (09:53)
--- NOTE | 2021-04-20 13:39 | P.PN ---
Subjective Progress Note Date: 04/20/21 CHIEF COMPLAINT: Small bowel obstruction HISTORY OF PRESENT ILLNESS: Patient is status post exploratory laparotomy, lysis of adhesions, small bowel resection, repair of incisional hernia and removal of abdominal wall prosthetic material for small bowel obstruction, incisional hernia and adhesions. Postop day #3. Patient is sitting at bedside chair. Patient is having flatus. He had one episode of vomiting this morning. This is not resolved. He denies any abdominal pain. Afebrile. WBC is down from 15.44- 14.58 hemoglobin 12.5 PHYSICAL EXAM: VITAL SIGNS: Reviewed. GENERAL: Well-developed in no acute distress. HEENT: No sclera icterus. Extraocular movements grossly intact. Moist buccal mucosa. Head is atraumatic, normocephalic. ABDOMEN: Soft. Incisional dressing with minimal amount of dried blood noted. Mildly distended. NEUROLOGIC: Alert and oriented. Cranial nerves II through XII grossly intact. ASSESSMENT: 1. Status post exploratory laparotomy, lysis of adhesions, small bowel resection, repair of incisional hernia and removal of abdominal wall prosthetic material for small bowel obstruction, incisional hernia and adhesions 2. Leukocytosis continue to monitor PLAN: -Continue clear liquid diet -Agree with decreasing IV fluids to 50 mL an hour -Continue pain medication as needed -Continue supportive care -Zofran dose adjusted to every 6 hours as needed -Encouraged patient to ambulate in hallways -Encouraged patient to use incentive spirometer -GI prophylaxis Protonix and DVT prophylaxis Lovenox Physician Hide Measuring Machine Operator note has been reviewed by physician. Signing provider agrees with the documented findings, assessment, and plan of care. Objective - Vital Signs Vital signs: Vital Signs Temp 98.2 F 04/20/21 08:19 Pulse 86 04/20/21 12:27 Resp 18 04/20/21 08:19 BP 128/78 04/20/21 08:19 Pulse Ox 91 L 04/20/21 08:19 Intake & Output 04/19/21 04/20/21 04/20/21 18:59 06:59 18:59 Intake Total 0 Balance 0 Weight 99.79 kg Intake: Oral 0 Other: Voiding Method Toilet # Voids 3 3 - Labs CBC & Chem 7: 04/20/21 04:16 04/19/21 04:26 Labs: Abnormal Lab Results - Last 24 Hours (Table) 02/17/22 Range/Units 04:16 WBC 14.58 H (4.50-10.00) X 10*3/uL RBC 4.21 L (4.40-5.60) X 10*6/uL Hgb 12.5 L (13.0-17.0) g/dL MCHC 31.3 L (32.0-37.0) g/dL RDW 15.7 H (11.5-14.5) % Immature Gran # 0.28 H (0.00-0.04) X 10*3/uL Neutrophils # 10.28 H (1.80-7.70) X 10*3/uL Monocytes # 1.93 H (0.20-1.00) X 10*3/uL Microbiology - Last 24 Hours (Table) 04/16/21 03:43 Blood Culture - Preliminary Blood No Growth after 96 hours
[2021-04-20] MEDS: METOCLOPRAMIDE 5 MG/ML 2 ML VIAL IVP PRN (19:43)
[2021-04-20] MEDS: AMITRIPTYLINE HCL 10 MG TAB PO SCH (22:50)
[2021-04-20] MEDS: MIRTAZAPINE 15 MG TAB PO SCH (22:50)
[2021-04-20] MEDS: HYDROmorphone 1 MG/ML 1 ML SYRINGE IVP PRN (23:41)
--- NOTE | 2021-04-21 01:53 | P.PN ---
Subjective Progress Note Date: 04/20/21 04/19/2021 This is a 60-year-old male who was recently admitted under surgical services for acute small bowel obstruction and underwent exploratory laparotomy, lysis of adhesions and small bowel resection with repair of incisional hernia and removal of abdominal wall prosthetic with Dr. Elizabeth. Patient continues on ice chips only and continues with NG tube and is requesting if it can be removed. Patient reports the passing gas and denies any increasing abdominal pain. Patient states his discomfort is with the NG tube. Patient denies chest pain, shortness of breath, or palpitations. Patient is afebrile. Patient continues on gentle IV hydration 04/20/2021 Patient is seen today and having some nausea with one episode of vomiting. NG tube removed yesterday and maintain on clear liquids. Patient denies passing gas and no bowel movement as of yet. General surgery following. Encouraged increase activity as tolerated. Encouraged incentive spirometer use at least 10 times per hour while awake. Patient is afebrile. WBC trending down. Patient continues on 3L via [place] and states he does not wear oxygen at home. Wean FI02 as tolerated. Review of systems: Constitutional: No reports of fatigue, fever, or chills Cardiovascular: No reports of chest pain or palpitations Respiratory: No reports of shortness of breath or cough GI: reports of nausea, one episode of vomiting, no gas or bowel movement : No reports of dysuria or retention Neurovascular: No reports of weakness or numbness All medications have been reviewed Active Medications Hydrocodone Bitart/Acetaminophen (Hydrocodone/Apap 5-325mg 1 Each Tab) 1 each PO Q4HR PRN PRN Reason: moderate Pain Albuterol Sulfate (Albuterol Nebulized 2.5 Mg/3 Ml) 2.5 mg INHALATION RT-Q6H PRN PRN Reason: Shortness Of Breath Last Admin: 04/16/21 04:43 Dose: 2.5 mg Documented by: Albuterol/Ipratropium (Ipratropium-Albuterol 3 Ml Neb) 3 ml INHALATION RT-QID [facility] Last Admin: 04/20/21 20:15 Dose: Not Given Documented by: Amitriptyline HCl (Amitriptyline Hcl 10 Mg Tab) 40 mg PO HS [facility] Last Admin: 04/20/21 22:50 Dose: Not Given Documented by: Ascorbic Acid (Ascorbic Acid 500 Mg Tab) 1,000 mg PO DAILY [facility] Last Admin: 04/20/21 09:27 Dose: 1,000 mg Documented by: Atorvastatin Calcium (Atorvastatin 20 Mg Tab) 20 mg PO DAILY [facility] Last Admin: 04/20/21 09:26 Dose: 20 mg Documented by: Budesonide/Formoterol Fumarate (Symbicort 160-4.5 Mcg Inhaler) 2 puff INHALATION RT-BID [facility] Last Admin: 04/20/21 20:15 Dose: Not Given Documented by: Clopidogrel Bisulfate (Clopidogrel 75 Mg Tab) 75 mg PO DAILY [facility] Last Admin: 04/20/21 09:27 Dose: 75 mg Documented by: Enoxaparin Sodium (Enoxaparin 40 Mg/0.4 Ml Syringe) 40 mg SQ DAILY [facility] Last Admin: 04/20/21 09:27 Dose: 40 mg Documented by: Fluticasone Propionate (Fluticasone 50mcg/[place] Nasal 16gm) 1 spray EA NOSTRIL DAILY [facility] Last Admin: 04/20/21 09:53 Dose: Not Given Documented by: HCTZ/Losartan Potassium (Losartan-Hctz 50-12.5 Mg 1 Each Tab) 1 each PO DAILY [facility] Last Admin: 04/20/21 09:27 Dose: 1 each Documented by: Hydromorphone HCl (Hydromorphone 1 Mg/Ml 1 Ml Syringe) 0.5 mg IVP Q3HR PRN PRN Reason: Moderate Pain Last Admin: 04/17/21 19:54 Dose: 0.5 mg Documented by: Hydromorphone HCl (Hydromorphone 1 Mg/Ml 1 Ml Syringe) 1 mg IVP Q3HR PRN PRN Reason: Severe Pain Last Admin: 04/20/21 23:41 Dose: 1 mg Documented by: Sodium Chloride (Saline 0.9%) 1,000 mls @ 50 mls/hr IV .Q20H [facility] Last Admin: 04/20/21 12:01 Dose: 50 mls/hr Documented by: Levothyroxine Sodium (Levothyroxine 50 Mcg Tab) 50 mcg PO DAILY@0630 [facility] Last Admin: 04/20/21 09:27 Dose: 50 mcg Documented by: Metoclopramide HCl (Metoclopramide 5 Mg/Ml 2 Ml Vial) 10 mg IVP Q6HR PRN PRN Reason: Nausea And Vomiting Last Admin: 04/20/21 19:43 Dose: 10 mg Documented by: Mirtazapine (Mirtazapine 15 Mg Tab) 30 mg PO HS [facility] Last Admin: 04/20/21 22:50 Dose: Not Given Documented by: Multivitamins (Multivitamins, Thera 1 Each Tab) 1 each PO DAILY [facility] Last Admin: 04/20/21 09:26 Dose: 1 each Documented by: Naloxone HCl (Naloxone 0.4 Mg/Ml 1 Ml Vial) 0.2 mg IV Q2M PRN PRN Reason: Opioid Reversal Nicotine (Nicotine 21mg/24hr Patch) 1 patch TRANSDERM DAILY [facility] Last Admin: 04/20/21 09:26 Dose: 1 patch Documented by: Non-Formulary Medication (Elviteg/Donna/Emtric/Tenofo Dis [Stribild Tablet]) 1 tab PO DAILY [facility] Last Admin: 04/20/21 09:28 Dose: 1 tab Documented by: Ondansetron HCl (Ondansetron 4 Mg/2 Ml Vial) 4 mg IVP Q6HR PRN PRN Reason: Nausea And Vomiting Last Admin: 04/20/21 23:40 Dose: 4 mg Documented by: Pantoprazole Sodium (Pantoprazole 40 Mg/10 Ml Vial) 40 mg IV DAILY [facility] Last Admin: 04/20/21 09:28 Dose: 40 mg Documented by: Potassium Chloride (Potassium Chloride Er 10 Meq Tab.Er.Prt) 10 meq PO DAILY [facility] Last Admin: 04/20/21 09:26 Dose: 10 meq Documented by: PHYSICAL EXAMINATION: GENERAL: The patient is alert and oriented x4, Well developed, well nourished. HEENT: Pupils are round and equally reacting to light. EOMI. does have scleral icterus. No conjunctival pallor. Normocephalic, atraumatic. No pharyngeal erythema. No thyromegaly. NG tube noted CARDIOVASCULAR: S1 and S2 muffled PULMONARY: diminished breath sounds bilaterally with Few scattered rhonchi noted. ABDOMEN: soft. obese. mildly-distended, normoactive bowel sounds. No palpable organomegaly. MUSCULOSKELETAL: No joint swelling or deformity. EXTREMITIES: No cyanosis, clubbing, or pedal edema. NEUROLOGICAL: Gross neurological examination did not reveal any focal deficits. SKIN: No rashes. Assessment: Acute small bowel obstruction, status post exploratory laparotomy, lysis of adhesions, small bowel resection Chronic obstructive pulmonary disease hypertension GI prophylaxis DVT prophylaxis Plan: Recommend to continue with gentle IV hydration and patient is maintained on clear liquids. Patient did have an episode of nausea with vomiting today. Encouraged incentive spirometer use at least 10 times every hour while awake and increase activity as tolerated. Patient is afebrile. White blood count trending down and recommend repeat labs in the morning. Patient continues on 3 L via nasal cannula and encouraged increase activity and continued coughing and deep breathing along with incentive spirometer. Wean Fi02 as tolerated. Will continue to follow along with surgery during hospitalization. Prognosis is guarded. The impression and plan of care has been dictated by Marzena Moore, nurse practitioner as directed. MD Leydi I have performed a history and examination and MDM of this patient, discussed the same with the dictator, and agree with the dictator's assessment and plan as written ,documented as a scribe. Based on total visit time, I have performed more than 50% of the visit. Any additional findings or plans will be noted. Objective - Vital Signs Vital signs: Vital Signs Temp 98.2 F 04/20/21 08:19 Pulse 92 04/20/21 08:19 Resp 18 04/20/21 08:19 BP 128/78 04/20/21 08:19 Pulse Ox 91 L 04/20/21 08:19 Intake & Output 04/19/21 04/20/21 04/20/21 18:59 06:59 18:59 Intake Total 0 Balance 0 Weight 99.79 kg Intake: Oral 0 Other: Voiding Method Toilet # Voids 3 3 - Labs CBC & Chem 7: 04/20/21 04:16 04/19/21 04:26 Labs: Abnormal Lab Results - Last 24 Hours (Table) 04/19/21 04/19/21 Range/Units 04:26 04:26 Immature Gran # 0.22 H (0.00-0.04) X 10*3/uL Neutrophils # 11.14 H (1.80-7.70) X 10*3/uL Monocytes # 1.94 H (0.20-1.00) X 10*3/uL Eosinophils # 0.02 L (0.04-0.35) X 10*3/uL BUN/Creatinine Ratio 20.50 H (12.00-20.00) Ratio Calcium 8.5 L (8.7-10.3) mg/dL Total Protein 5.8 L (6.2-8.2) g/dL Albumin 3.3 L (3.8-4.9) g/dL Albumin/Globulin Ratio 1.32 L (1.60-3.17) g/dL Microbiology - Last 24 Hours (Table) 04/16/21 03:43 Blood Culture - Preliminary Blood No Growth after 96 hours
[2021-04-21] MEDS: METOCLOPRAMIDE 5 MG/ML 2 ML VIAL IVP PRN (02:16)
[2021-04-21] MEDS: ONDANSETRON 4 MG/2 ML VIAL IVP PRN (05:28)
[2021-04-21] MEDS: SYMBICORT 160-4.5 MCG INHALER INHALATION SCH ×2 (08:53→21:11)
[2021-04-21] MEDS: IPRATROPIUM-ALBUTEROL 3 ML NEB INHALATION SCH ×4 (08:53→21:11)
[2021-04-21] MEDS: FLUTICASONE 50MCG/SPRAY NASAL 16GM EA NOSTRIL SCH (09:00)
[2021-04-21] MEDS: NICOTINE 21MG/24HR PATCH TRANSDERM SCH (09:19)
[2021-04-21] MEDS: ASCORBIC ACID 500 MG TAB PO SCH (09:19)
[2021-04-21] MEDS: ATORVASTATIN 20 MG TAB PO SCH (09:19)
[2021-04-21] MEDS: POTASSIUM CHLORIDE ER 10 MEQ TAB.ER.PRT PO SCH (09:20)
[2021-04-21] MEDS: CLOPIDOGREL 75 MG TAB PO SCH (09:20)
[2021-04-21] MEDS: ENOXAPARIN 40 MG/0.4 ML SYRINGE SQ SCH (09:20)
[2021-04-21] MEDS: MULTIVITAMINS, THERA 1 EACH TAB PO SCH (09:20)
[2021-04-21] MEDS: LEVOTHYROXINE 50 MCG TAB PO SCH (09:20)
[2021-04-21] MEDS: SODIUM CHLORIDE 0.9% 1,000 ML IV SCH (09:21)
[2021-04-21] MEDS: [UNRECOGNIZED DRUG - OTHER] PO SCH (09:21)
[2021-04-21] MEDS: LOSARTAN-HCTZ 50-12.5 MG 1 EACH TAB PO SCH (09:22)
[2021-04-21] MEDS: PANTOPRAZOLE 40 MG/10 ML VIAL IV SCH (09:22)
--- NOTE | 2021-04-21 09:28 | P.PN ---
Progress Note - Text Progress Note Date: 04/21/21 Patient feels better. He's had multiple bowel movements. On exam vital signs are stable. Abdomen soft. His silver dressings was removed. There is a small amount of drainage near the umbilicus. I removed 2 jerzy at the umbilicus. Patient will continue with local wound care and antibiotics. He'll be most likely discharged home on Saturday.
[2021-04-21] MEDS: HYDROcodone/APAP 5-325MG 1 EACH TAB PO PRN ×3 (09:36→22:08)
[2021-04-21 10:48] LABS: Basophils # (A) 0.06 X 10*3/uL (0.00-0.10); Basophils % (A) 0.4 %; Eosinophils # (A) 0.22 X 10*3/uL (0.04-0.35); Eosinophils % (A) 1.4 %; HCT 39.8 % (39.6-50.0); HGB 12.4 g/dL (13.0-17.0); Lymphocytes # (A) 2.91 X 10*3/uL (0.90-5.00); Lymphocytes % (A) 18.6 %; MCH 29.6 pg (27.0-32.0); MCHC 31.2 g/dL (32.0-37.0); Mean Platelet Volume 9.4 fL (9.5-12.2); Monocytes # (A) 2.18 X 10*3/uL (0.20-1.00); Monocytes % (A) 13.9 %; NRBC Per 100 WBC 0.1 /100 WBCS (0.0-0.0); Neutrophils # (A) 9.98 X 10*3/uL (1.80-7.70); Neutrophils % (A) 63.7 %; Platelet Count 420 X 10*3/uL (140-440); RBC 4.19 X 10*6/uL (4.40-5.60); RDW 15.8 % (11.5-14.5); WBC 15.67 X 10*3/uL (4.50-10.00)
[2021-04-21 11:04] LABS: African American GFR (CKD) 113.3 (60.0-200.0); BUN/Creat Ratio 16.75 Ratio (12.00-20.00); Blood Urea Nitrogen 13.4 mg/dL (9.0-27.0); Non-African American GFR(CKD) 97.8 (60.0-200.0); Potassium 3.8 mmol/L (3.5-5.5)
[2021-04-21] MEDS: ALBUTEROL NEBULIZED 2.5 MG/3 ML INHALATION PRN (17:34)
[2021-04-21] MEDS: MIRTAZAPINE 15 MG TAB PO SCH (22:00)
[2021-04-21] MEDS: AMITRIPTYLINE HCL 10 MG TAB PO SCH (22:00)
--- NOTE | 2021-04-22 00:34 | P.PN ---
Subjective Progress Note Date: 04/21/21 04/19/2021 This is a 60-year-old male who was recently admitted under surgical services for acute small bowel obstruction and underwent exploratory laparotomy, lysis of adhesions and small bowel resection with repair of incisional hernia and removal of abdominal wall prosthetic with Dr. Elizabeth. Patient continues on ice chips only and continues with NG tube and is requesting if it can be removed. Patient reports the passing gas and denies any increasing abdominal pain. Patient states his discomfort is with the NG tube. Patient denies chest pain, shortness of breath, or palpitations. Patient is afebrile. Patient continues on gentle IV hydration 04/20/2021 Patient is seen today and having some nausea with one episode of vomiting. NG tube removed yesterday and maintain on clear liquids. Patient denies passing gas and no bowel movement as of yet. General surgery following. Encouraged increase activity as tolerated. Encouraged incentive spirometer use at least 10 times per hour while awake. Patient is afebrile. WBC trending down. Patient continues on 3L via [place] and states he does not wear oxygen at home. Wean FI02 as tolerated. 04/21/2021 Patient is seen this morning and resting although easily arousable. Patient is continued on clear liquids and tolerating with no further episodes of nausea or vomiting. Patient is passing gas and having multiple episodes of loose stool and will obtain cdiff and possible imodium although recommend discussing with primary team prior to starting that. WBC elevated of 15 and being started on cefazolin. Some mild drainage noted of the lower surgical site and some jerzy to be removed today. Review of systems: Constitutional: No reports of fatigue, fever, or chills Cardiovascular: No reports of chest pain or palpitations Respiratory: No reports of shortness of breath or cough GI: reports of nausea, one episode of vomiting, no gas or bowel movement : No reports of dysuria or retention Neurovascular: No reports of weakness or numbness All medications have been reviewed Active Medications Hydrocodone Bitart/Acetaminophen (Hydrocodone/Apap 5-325mg 1 Each Tab) 1 each PO Q4HR PRN PRN Reason: moderate Pain Last Admin: 04/21/21 22:08 Dose: 1 each Documented by: Albuterol Sulfate (Albuterol Nebulized 2.5 Mg/3 Ml) 2.5 mg INHALATION RT-Q6H PRN PRN Reason: Shortness Of Breath Last Admin: 04/21/21 17:34 Dose: 2.5 mg Documented by: Albuterol/Ipratropium (Ipratropium-Albuterol 3 Ml Neb) 3 ml INHALATION RT-QID [facility] Last Admin: 04/21/21 21:11 Dose: 3 ml Documented by: Amitriptyline HCl (Amitriptyline Hcl 10 Mg Tab) 40 mg PO HS [facility] Last Admin: 04/21/21 22:00 Dose: 40 mg Documented by: Ascorbic Acid (Ascorbic Acid 500 Mg Tab) 1,000 mg PO DAILY [facility] Last Admin: 04/21/21 09:19 Dose: 1,000 mg Documented by: Atorvastatin Calcium (Atorvastatin 20 Mg Tab) 20 mg PO DAILY [facility] Last Admin: 04/21/21 09:19 Dose: 20 mg Documented by: Budesonide/Formoterol Fumarate (Symbicort 160-4.5 Mcg Inhaler) 2 puff INHALATION RT-BID [facility] Last Admin: 04/21/21 21:11 Dose: 2 puff Documented by: Clopidogrel Bisulfate (Clopidogrel 75 Mg Tab) 75 mg PO DAILY [facility] Last Admin: 04/21/21 09:20 Dose: 75 mg Documented by: Enoxaparin Sodium (Enoxaparin 40 Mg/0.4 Ml Syringe) 40 mg SQ DAILY [facility] Last Admin: 04/21/21 09:20 Dose: 40 mg Documented by: Fluticasone Propionate (Fluticasone 50mcg/[place] Nasal 16gm) 1 spray EA NOSTRIL DAILY [facility] Last Admin: 04/21/21 09:00 Dose: 1 spray Documented by: HCTZ/Losartan Potassium (Losartan-Hctz 50-12.5 Mg 1 Each Tab) 1 each PO DAILY [facility] Last Admin: 04/21/21 09:22 Dose: 1 each Documented by: Hydromorphone HCl (Hydromorphone 1 Mg/Ml 1 Ml Syringe) 0.5 mg IVP Q3HR PRN PRN Reason: Moderate Pain Last Admin: 04/17/21 19:54 Dose: 0.5 mg Documented by: Hydromorphone HCl (Hydromorphone 1 Mg/Ml 1 Ml Syringe) 1 mg IVP Q3HR PRN PRN Reason: Severe Pain Last Admin: 04/20/21 23:41 Dose: 1 mg Documented by: Sodium Chloride (Saline 0.9%) 1,000 mls @ 50 mls/hr IV .Q20H [facility] Last Admin: 04/21/21 09:21 Dose: 50 mls/hr Documented by: Cefazolin Sodium 1,000 mg/ (Sodium Chloride) 50 mls @ 100 mls/hr IVPB Q8H [facility] Last Admin: 04/21/21 18:23 Dose: 100 mls/hr Documented by: Levothyroxine Sodium (Levothyroxine 50 Mcg Tab) 50 mcg PO DAILY@0630 [facility] Last Admin: 04/21/21 09:20 Dose: 50 mcg Documented by: Metoclopramide HCl (Metoclopramide 5 Mg/Ml 2 Ml Vial) 10 mg IVP Q6HR PRN PRN Reason: Nausea And Vomiting Last Admin: 04/21/21 02:16 Dose: 10 mg Documented by: Mirtazapine (Mirtazapine 15 Mg Tab) 30 mg PO HS [facility] Last Admin: 04/21/21 22:00 Dose: 30 mg Documented by: Multivitamins (Multivitamins, Thera 1 Each Tab) 1 each PO DAILY [facility] Last Admin: 04/21/21 09:20 Dose: 1 each Documented by: Naloxone HCl (Naloxone 0.4 Mg/Ml 1 Ml Vial) 0.2 mg IV Q2M PRN PRN Reason: Opioid Reversal Nicotine (Nicotine 21mg/24hr Patch) 1 patch TRANSDERM DAILY [facility] Last Admin: 04/21/21 09:19 Dose: 1 patch Documented by: Non-Formulary Medication (Elviteg/Donna/Emtric/Tenofo Dis [Stribild Tablet]) 1 tab PO DAILY [facility] Last Admin: 04/21/21 09:21 Dose: 1 tab Documented by: Ondansetron HCl (Ondansetron 4 Mg/2 Ml Vial) 4 mg IVP Q6HR PRN PRN Reason: Nausea And Vomiting Last Admin: 04/21/21 05:28 Dose: 4 mg Documented by: Pantoprazole Sodium (Pantoprazole 40 Mg/10 Ml Vial) 40 mg IV DAILY [facility] Last Admin: 04/21/21 09:22 Dose: 40 mg Documented by: Potassium Chloride (Potassium Chloride Er 10 Meq Tab.Er.Prt) 10 meq PO DAILY [facility] Last Admin: 04/21/21 09:20 Dose: 10 meq Documented by: PHYSICAL EXAMINATION: GENERAL: The patient is alert and oriented x4, Well developed, well nourished. HEENT: Pupils are round and equally reacting to light. EOMI. does have scleral icterus. No conjunctival pallor. Normocephalic, atraumatic. No pharyngeal erythema. No thyromegaly. CARDIOVASCULAR: S1 and S2 muffled PULMONARY: diminished breath sounds bilaterally with Few scattered rhonchi noted. ABDOMEN: soft. obese. mildly-distended, normoactive bowel sounds. No palpable organomegaly. MUSCULOSKELETAL: No joint swelling or deformity. EXTREMITIES: No cyanosis, clubbing, or pedal edema. NEUROLOGICAL: Gross neurological examination did not reveal any focal deficits. SKIN: No rashes. Assessment: Acute small bowel obstruction, status post exploratory laparotomy, lysis of adhesions, small bowel resection Chronic obstructive pulmonary disease leukocytosis hypertension GI prophylaxis DVT prophylaxis Plan: Recommend to continue with gentle IV hydration and patient is maintained on clear liquids. Patient denies any further episode of nausea or vomiting today. Patient is having multiple frequent loose stools and recommend testing for cdiff and if negative, may introduce imodium if ok with surgery. Encouraged incentive spirometer use at least 10 times every hour while awake and increase activity as tolerated. Patient does have duonebs ordered although has been refusing. Patient is afebrile. White blood count elevated and recommend repeat labs in the morning. IV cefazolin added by primary team and haivng some mild drainage noted at the surgical site and having some jerzy removed by general surgery today. Abdomen less distended on exam. Patient continues on 3 L via nasal cannula and encouraged increase activity and continued coughing and deep breathing along with incentive spirometer. Wean Fi02 as tolerated. Patient denies worsening shortness of breath. Will continue to follow along with surgery during hospitalization. Prognosis is guarded. The impression and plan of care has been dictated by Marzena Moore, nurse practitioner as directed. MD Leydi I have performed a history and examination and MDM of this patient, discussed the same with the dictator, and agree with the dictator's assessment and plan as written ,documented as a scribe. Based on total visit time, I have performed more than 50% of the visit. Any additional findings or plans will be noted. Objective - Vital Signs Vital signs: Vital Signs Temp 98.4 F 02/18/22 02:17 Pulse 87 04/21/21 02:17 Resp 18 04/21/21 02:17 BP 113/72 04/21/21 02:17 Pulse Ox 92 L 04/21/21 02:17 Intake & Output 04/20/21 04/21/21 04/21/21 18:59 06:59 18:59 Intake Total 1020 Output Total 400 Balance 620 Intake: Intake, IV Titration 600 Amount Sodium Chloride 0.9% 50 600 ml @ 0 mls/hr IV .STK-MED ONE with ceFAZolin 2,000 mg Rx#:[id number] Oral 420 Output: Urine 400 Other: # Voids 1 1 # Bowel Movements 1 - Labs CBC & Chem 7: 04/21/21 03:20 04/21/21 03:20 Labs: Microbiology - Last 24 Hours (Table) 04/16/21 03:43 Blood Culture - Preliminary Blood No Growth after 120 hours
[2021-04-22] MEDS: SODIUM CHLORIDE 0.9% 1,000 ML IV SCH (02:16)
[2021-04-22] MEDS: HYDROcodone/APAP 5-325MG 1 EACH TAB PO PRN ×3 (02:16→20:06)
[2021-04-22 04:20] LABS: Basophils # (A) 0.1 k/uL (0-0.2); Basophils % (A) 1 %; Eosinophils # (A) 0.2 k/uL (0-0.7); Eosinophils % (A) 1 %; HCT 37.8 % (39.0-53.0); HGB 12.2 gm/dL (13.0-17.5); Lymphocytes # (A) 2.3 k/uL (1.0-4.8); Lymphocytes % (A) 14 %; MCH 31.2 pg (25.0-35.0); MCHC 32.2 g/dL (31.0-37.0); MCV 96.9 fL (80.0-100.0); Monocytes # (A) 0.9 k/uL (0-1.0); Monocytes % (A) 5 %; Neutrophils # (A) 13.2 k/uL (1.3-7.7); Neutrophils % (A) 77 %; Platelet Count 407 k/uL (150-450); RDW 14.3 % (11.5-15.5); WBC 17.2 k/uL (3.8-10.6)
[2021-04-22 04:35] LABS: African American GFR (CKD) >90 (>60 ml/min/1.73 sqM); Anion Gap 12 mmol/L; Blood Urea Nitrogen 12 mg/dL (9-20); Calcium 8.8 mg/dL (8.4-10.2); Carbon Dioxide 21 mmol/L (22-30); Chloride 101 mmol/L (98-107); Glucose 86 mg/dL (74-99); Magnesium 1.8 mg/dL (1.6-2.3); Non-African American GFR(CKD) >90 (>60 ml/min/1.73 sqM); Potassium 3.3 mmol/L (3.5-5.1); Sodium 134 mmol/L (137-145)
[2021-04-22] MEDS: LEVOTHYROXINE 50 MCG TAB PO SCH (06:42)
[2021-04-22] MEDS: ENOXAPARIN 40 MG/0.4 ML SYRINGE SQ SCH (07:16)
[2021-04-22] MEDS: LOSARTAN-HCTZ 50-12.5 MG 1 EACH TAB PO SCH (07:16)
[2021-04-22] MEDS: NICOTINE 21MG/24HR PATCH TRANSDERM SCH (07:16)
[2021-04-22] MEDS: POTASSIUM CHLORIDE ER 10 MEQ TAB.ER.PRT PO SCH (07:17)
[2021-04-22] MEDS: MULTIVITAMINS, THERA 1 EACH TAB PO SCH (07:17)
[2021-04-22] MEDS: [UNRECOGNIZED DRUG - OTHER] PO SCH (07:17)
[2021-04-22] MEDS: CLOPIDOGREL 75 MG TAB PO SCH (07:17)
[2021-04-22] MEDS: ASCORBIC ACID 500 MG TAB PO SCH (07:17)
[2021-04-22] MEDS: ATORVASTATIN 20 MG TAB PO SCH (07:17)
[2021-04-22] MEDS: IPRATROPIUM-ALBUTEROL 3 ML NEB INHALATION SCH ×4 (08:04→19:32)
[2021-04-22] MEDS: SYMBICORT 160-4.5 MCG INHALER INHALATION SCH ×2 (08:04→19:32)
[2021-04-22] MEDS: PANTOPRAZOLE 40 MG/10 ML VIAL IV SCH (10:20)
[2021-04-22] MEDS: FLUTICASONE 50MCG/SPRAY NASAL 16GM EA NOSTRIL SCH (10:21)
--- NOTE | 2021-04-22 15:50 | P.PN ---
Subjective Progress Note Date: 04/22/21 CHIEF COMPLAINT: Small bowel obstruction HISTORY OF PRESENT ILLNESS: The patient is a 60-year-old male status post exploratory small bowel resection due to small bowel obstruction. He is tolerating diet. No new issues overnight. ROS: Has bowel movements. No fevers or chills. No new chest pain. PHYSICAL EXAM: VITAL SIGNS: Reviewed CONSTITUTIONAL: Well developed and in no acute distress. EYES: Conjuctivae without sclera icterus. Extraocular movements grossly intact. HEAD, EARS, NOSE, THROAT: Moist buccal mucosa. Head is atraumatic, normocephalic. Hears conversational speech. No nasal drainage. RESPIRATORY: Non-labored respirations and equal bilateral excursions. CARDIOVASCULAR: 2+ radial pulses. ABDOMEN: No peritonitis. MUSCULOSKELETAL: No gross deformity of the lower extremities noted. No clubbing. No cyanosis. SKIN: Good skin turgor. Well perfused. NEUROLOGIC: Cranial nerves II through XII grossly intact. No focal or lateralizing signs. PSYCH: Appropriate affect. Alert and oriented to person, place and time. CLINICAL LABS: Reviewed. WBC elevated 15-17,000. Hemoglobin stable 12.4-12.2. ASSESSMENT: 1. Small bowel obstruction PLAN: 1. Diet as tolerated 2. Continue antibiotics Advanced directive present Objective - Vital Signs Vital signs: Vital Signs Temp 98.1 F 04/22/21 07:13 Pulse 88 04/22/21 11:50 Resp 18 04/22/21 07:13 BP 118/70 04/22/21 07:13 Pulse Ox 92 L 04/22/21 07:13 Intake & Output 04/21/21 04/22/21 04/22/21 18:59 06:59 18:59 Weight 99.79 kg Other: Voiding Method Toilet Toilet Toilet # Voids 3 # Bowel Movements 14 - Labs CBC & Chem 7: 04/22/21 03:43 04/22/21 03:43 Labs: Abnormal Lab Results - Last 24 Hours (Table) 04/22/21 04/22/21 Range/Units 03:43 03:43 WBC 17.2 H (3.8-10.6) k/uL RBC 3.90 L (4.30-5.90) m/uL Hgb 12.2 L (13.0-17.5) gm/dL Hct 37.8 L (39.0-53.0) % Neutrophils # 13.2 H (1.3-7.7) k/uL Sodium 134 L (137-145) mmol/L Potassium 3.3 L (3.5-5.1) mmol/L Carbon Dioxide 21 L (22-30) mmol/L Microbiology - Last 24 Hours (Table) 04/16/21 03:43 Blood Culture - Final Blood No Growth after 144 hours
[2021-04-22] MEDS: MIRTAZAPINE 15 MG TAB PO SCH (20:07)
[2021-04-22] MEDS: AMITRIPTYLINE HCL 10 MG TAB PO SCH (20:07)
--- NOTE | 2021-04-22 20:17 | P.PN ---
Subjective Progress Note Date: 04/22/21 Principal diagnosis: Small bowel obstruction Status post exploratory laparotomy with lysis of adhesions and small bowel resection This is a 60-year-old male who was recently admitted under surgical services for acute small bowel obstruction and underwent exploratory laparotomy, lysis of adhesions and small bowel resection with repair of incisional hernia and removal of abdominal wall prosthetic with Dr. Elizabeth. Patient continues on ice chips only and continues with NG tube and is requesting if it can be removed. Patient reports the passing gas and denies any increasing abdominal pain. Patient states his discomfort is with the NG tube. Patient denies chest pain, shortness of breath, or palpitations. Patient is afebrile. Patient continues on gentle IV hydration Patient is being followed by surgery; WBC is elevated and continues to trend up and is around 17,000 this morning; patient has been placed on IV antibiotics; we will monitor CBC, CRP and pro-calcitonin; plan to escalate antibiotic therapy if WBC continues to trend up Objective - Vital Signs Vital signs: Vital Signs Temp 97.7 F 04/22/21 14:17 Pulse 86 04/22/21 15:14 Resp 18 04/22/21 14:17 BP 118/74 04/22/21 14:17 Pulse Ox 92 L 04/22/21 14:17 Intake & Output 04/21/21 04/22/21 04/22/21 18:59 06:59 18:59 Weight 99.79 kg Other: Voiding Method Toilet Toilet Toilet # Voids 3 # Bowel Movements 14 - Exam GENERAL: The patient is alert and oriented x4, Well developed, well nourished. HEENT: Pupils are round and equally reacting to light. EOMI. does have scleral icterus. No conjunctival pallor. Normocephalic, atraumatic. No pharyngeal erythema. No thyromegaly. CARDIOVASCULAR: S1 and S2 muffled PULMONARY: diminished breath sounds bilaterally with Few scattered rhonchi noted. ABDOMEN: soft. obese. mildly-distended, normoactive bowel sounds. No palpable organomegaly. MUSCULOSKELETAL: No joint swelling or deformity. EXTREMITIES: No cyanosis, clubbing, or pedal edema. NEUROLOGICAL: Gross neurological examination did not reveal any focal deficits. SKIN: No rashes. - Labs CBC & Chem 7: 04/22/21 03:43 04/22/21 03:43 Labs: Abnormal Lab Results - Last 24 Hours (Table) 04/22/21 04/22/21 Range/Units 03:43 03:43 WBC 17.2 H (3.8-10.6) k/uL RBC 3.90 L (4.30-5.90) m/uL Hgb 12.2 L (13.0-17.5) gm/dL Hct 37.8 L (39.0-53.0) % Neutrophils # 13.2 H (1.3-7.7) k/uL Sodium 134 L (137-145) mmol/L Potassium 3.3 L (3.5-5.1) mmol/L Carbon Dioxide 21 L (22-30) mmol/L Microbiology - Last 24 Hours (Table) 04/16/21 03:43 Blood Culture - Final Blood No Growth after 144 hours Assessment and Plan Assessment: Acute small bowel obstruction, status post exploratory laparotomy, lysis of adhesions, small bowel resection Chronic obstructive pulmonary disease leukocytosis hypertension GI prophylaxis DVT prophylaxis Plan: Recommend to continue with gentle IV hydration and patient is maintained on clear liquids. Patient denies any further episode of nausea or vomiting today. Patient is having multiple frequent loose stools and recommend testing for cdiff and if negative, may introduce imodium if ok with surgery. Encouraged incentive spirometer use at least 10 times every hour while awake and increase activity as tolerated. Patient does have duonebs ordered although has been refusing. Patient is afebrile. White blood count elevated and recommend repeat labs in the morning. IV cefazolin added by primary team and haivng some mild drainage noted at the surgical site and having some jerzy removed by general surgery today. Abdomen less distended on exam. Patient continues on 3 L via nasal cannula and encouraged increase activity and continued coughing and deep breathing along with incentive spirometer. Wean Fi02 as tolerated. Patient denies worsening shortness of breath. Will continue to follow along with surgery during hospitalization. Prognosis is guarded.
[2021-04-23] MEDS: SODIUM CHLORIDE 0.9% 1,000 ML IV SCH ×2 (01:15→21:12)
[2021-04-23] MEDS: LEVOTHYROXINE 50 MCG TAB PO SCH (05:33)
[2021-04-23] MEDS: SYMBICORT 160-4.5 MCG INHALER INHALATION SCH ×2 (07:54→19:31)
[2021-04-23] MEDS: IPRATROPIUM-ALBUTEROL 3 ML NEB INHALATION SCH ×4 (07:54→19:31)
[2021-04-23] MEDS: ASCORBIC ACID 500 MG TAB PO SCH (08:46)
[2021-04-23] MEDS: MULTIVITAMINS, THERA 1 EACH TAB PO SCH (08:46)
[2021-04-23] MEDS: NICOTINE 21MG/24HR PATCH TRANSDERM SCH (08:46)
[2021-04-23] MEDS: LOSARTAN-HCTZ 50-12.5 MG 1 EACH TAB PO SCH (08:46)
[2021-04-23] MEDS: [UNRECOGNIZED DRUG - OTHER] PO SCH (08:46)
[2021-04-23] MEDS: ATORVASTATIN 20 MG TAB PO SCH (08:46)
[2021-04-23] MEDS: POTASSIUM CHLORIDE ER 10 MEQ TAB.ER.PRT PO SCH (08:46)
[2021-04-23] MEDS: ENOXAPARIN 40 MG/0.4 ML SYRINGE SQ SCH (08:46)
[2021-04-23] MEDS: CLOPIDOGREL 75 MG TAB PO SCH (08:46)
[2021-04-23] MEDS: FLUTICASONE 50MCG/SPRAY NASAL 16GM EA NOSTRIL SCH (08:49)
[2021-04-23] MEDS: HYDROcodone/APAP 5-325MG 1 EACH TAB PO PRN ×2 (08:55→20:22)
[2021-04-23 09:05] LABS: Basophils # (A) 0.08 X 10*3/uL (0.00-0.10); Basophils % (A) 0.4 %; Eosinophils # (A) 0.34 X 10*3/uL (0.04-0.35); Eosinophils % (A) 1.7 %; HGB 11.9 g/dL (13.0-17.0); Immature Grans, Automated 0.7 %; Lymphocytes # (A) 2.74 X 10*3/uL (0.90-5.00); Lymphocytes % (A) 13.7 %; MCH 29.5 pg (27.0-32.0); MCHC 32.2 g/dL (32.0-37.0); MCV 91.6 fL (80.0-97.0); Mean Platelet Volume 9.2 fL (9.5-12.2); Monocytes # (A) 1.37 X 10*3/uL (0.20-1.00); Monocytes % (A) 6.8 %; NRBC Per 100 WBC 0 /100 WBCS (0.0-0.0); Neutrophils % (A) 76.7 %; Platelet Count 451 X 10*3/uL (140-440); RBC 4.04 X 10*6/uL (4.40-5.60); WBC 20.07 X 10*3/uL (4.50-10.00)
[2021-04-23 09:19] LABS: African American GFR (CKD) 123.9 (60.0-200.0); BUN/Creat Ratio 11.57 Ratio (12.00-20.00); Blood Urea Nitrogen 7.5 mg/dL (9.0-27.0); C Reactive Protein 18.4 mg/dL (0.00-0.80); Calcium 8.6 mg/dL (8.7-10.3); Carbon Dioxide 20.2 mmol/L (20.0-27.5); Non-African American GFR(CKD) 106.9 (60.0-200.0); Potassium 3.2 mmol/L (3.5-5.5)
[2021-04-23] MEDS ORDERED: Potassium Replacement Protocol 1 EACH MISC MISCELLANE PRN (12:07)
[2021-04-23] MEDS: PANTOPRAZOLE 40 MG/10 ML VIAL IV SCH (12:08)
[2021-04-23] MEDS: POTASSIUM CHLORIDE ER 20 MEQ TAB.ER PO SCH ×2 (12:19→13:32)
--- NOTE | 2021-04-23 14:52 | P.PN ---
Subjective Progress Note Date: 04/23/21 Principal diagnosis: Small bowel obstruction Status post exploratory laparotomy with lysis of adhesions and small bowel resection This is a 60-year-old male who was recently admitted under surgical services for acute small bowel obstruction and underwent exploratory laparotomy, lysis of adhesions and small bowel resection with repair of incisional hernia and removal of abdominal wall prosthetic with Dr. Elizabeth. Patient continues on ice chips only and continues with NG tube and is requesting if it can be removed. Patient reports the passing gas and denies any increasing abdominal pain. Patient states his discomfort is with the NG tube. Patient denies chest pain, shortness of breath, or palpitations. Patient is afebrile. Patient continues on gentle IV hydration Patient is being followed by surgery; WBC is elevated and continues to trend up and is around 17,000 this morning; patient has been placed on IV antibiotics; we will monitor CBC, CRP and pro-calcitonin; plan to escalate antibiotic therapy if WBC continues to trend up 04/23/2021 Vital signs are reviewed temperature 98.0, pulse 77, blood pressure 115/66 Patient is seen and evaluated sitting up in bedside chair; denies any worsening abdominal pain Labs revealed worsening WBC count of 20.7; CRP of 18.4 but pro-calcitonin remains low at 0.2 Patient is currently on IV Ancef; we will discontinue and start patient on IV cefepime; we'll consult ID for further recommendations Objective - Vital Signs Vital signs: Vital Signs Temp 97.9 F 04/23/21 07:49 Pulse 84 04/23/21 08:06 Resp 20 04/23/21 07:49 BP 132/80 04/23/21 07:49 Pulse Ox 95 04/23/21 07:49 Intake & Output 04/22/21 04/23/21 04/23/21 18:59 06:59 18:59 Intake Total 1080 Balance 1080 Intake: Oral 1080 Other: Voiding Method Toilet Toilet # Voids 3 2 # Bowel Movements 1 - Exam GENERAL: The patient is alert and oriented x4, Well developed, well nourished. HEENT: Pupils are round and equally reacting to light. EOMI. does have scleral icterus. No conjunctival pallor. Normocephalic, atraumatic. No pharyngeal eryth chuyita. No thyromegaly. CARDIOVASCULAR: S1 and S2 muffled PULMONARY: diminished breath sounds bilaterally with Few scattered rhonchi noted. ABDOMEN: soft. obese. mildly-distended, normoactive bowel sounds. No palpable organomegaly. MUSCULOSKELETAL: No joint swelling or deformity. EXTREMITIES: No cyanosis, clubbing, or pedal edema. NEUROLOGICAL: Gross neurological examination did not reveal any focal deficits. SKIN: No rashes. - Labs CBC & Chem 7: 04/23/21 05:37 04/23/21 05:37 Labs: Microbiology - Last 24 Hours (Table) 04/16/21 03:43 Blood Culture - Final Blood No Growth after 144 hours Assessment and Plan Assessment: Acute small bowel obstruction, status post exploratory laparotomy, lysis of adhesions, small bowel resection Chronic obstructive pulmonary disease leukocytosis hypertension GI prophylaxis DVT prophylaxis Plan: Recommend to continue with gentle IV hydration and patient is maintained on clear liquids. Patient denies any further episode of nausea or vomiting today. Patient is having multiple frequent loose stools and recommend testing for cdiff and if negative, may introduce imodium if ok with surgery. Encouraged incentive spirometer use at least 10 times every hour while awake and increase activity as tolerated. Patient does have duonebs ordered although has been refusing. Patient is afebrile. White blood count elevated and recommend repeat labs in the morning. IV cefazolin added by primary team and haivng some mild drainage noted at the surgical site and having some jerzy removed by general surgery today. Abdomen less distended on exam. Patient continues on 3 L via nasal cannula and encouraged increase activity and continued coughing and deep breathing along with incentive spirometer. Wean Fi02 as tolerated. Patient de nies worsening shortness of breath. Will continue to follow along with surgery during hospitalization. Prognosis is guarded.
--- NOTE | 2021-04-23 15:32 | P.PN ---
Subjective Progress Note Date: 04/23/21 CHIEF COMPLAINT: Small bowel obstruction HISTORY OF PRESENT ILLNESS: The patient is a 60-year-old male status post exploratory small bowel resection due to small bowel obstruction. He is tolerating diet. He had moderate bowel movements, over 15 yesterday now improved to 2 today. ROS: Has bowel movements. No fevers or chills. No new chest pain. PHYSICAL EXAM: VITAL SIGNS: Reviewed CONSTITUTIONAL: Well developed and in no acute distress. EYES: Conjuctivae without sclera icterus. Extraocular movements grossly intact. HEAD, EARS, NOSE, THROAT: Moist buccal mucosa. Head is atraumatic, nor mocephalic. Hears conversational speech. No nasal drainage. RESPIRATORY: Non-labored respirations and equal bilateral excursions. CARDIOVASCULAR: 2+ radial pulses. ABDOMEN: Dressing, clean dry and intact. No peritonitis. Mild distention. MUSCULOSKELETAL: No gross deformity of the lower extremities noted. No clubbing. No cyanosis. SKIN: Good skin turgor. Well perfused. NEUROLOGIC: Cranial nerves II through XII grossly intact. No focal or lateralizing signs. PSYCH: Appropriate affect. Alert and oriented to person, place and time. CLINICAL LABS: Reviewed. WBC elevated 15-17,000, now 20,000. Hemoglobin stable 12.4-12.2, now 11.9 ASSESSMENT: 1. Small bowel obstruction PLAN: 1. Continue antibiotics 2. May shower. 3. Diet as tolerated. Objective - Vital Signs Vital signs: Vital Signs Temp 98.0 F 04/23/21 13:55 Pulse 80 04/23/21 15:24 Resp 18 04/23/21 13:55 BP 115/66 04/23/21 13:55 Pulse Ox 91 L 04/23/21 13:55 Intake & Output 04/22/21 04/23/21 04/23/21 18:59 06:59 18:59 Intake Total 1080 Balance 1080 Intake: Oral 1080 Other: Voiding Method Toilet Toilet Toilet # Voids 3 2 # Bowel Movements 1 - Labs CBC & Chem 7: 04/23/21 05:37 04/23/21 05:37 Labs: Abnormal Lab Results - Last 24 Hours (Table) 04/23/21 04/23/21 04/23/21 Range/Units 05:37 05:37 05:37 WBC 20.07 H (4.50-10.00) X 10*3/uL RBC 4.04 L (4.40-5.60) X 10*6/uL Hgb 11.9 L (13.0-17.0) g/dL Hct 37.0 L (39.6-50.0) % RDW 15.0 H (11.5-14.5) % Plt Count 451 H (140-440) X 10*3/uL MPV 9.2 L (9.5-12.2) fL Immature Gran # 0.14 H (0.00-0.04) X 10*3/uL Neutrophils # 15.40 H (1.80-7.70) X 10*3/uL Monocytes # 1.37 H (0.20-1.00) X 10*3/uL Potassium 3.2 L (3.5-5.5) mmol/L BUN 7.5 L (9.0-27.0) mg/dL BUN/Creatinine Ratio 11.57 L (12.00-20.00) Ratio Calcium 8.6 L (8.7-10.3) mg/dL C-Reactive Protein 18.40 H (0.00-0.80) mg/dL Procalcitonin 0.22 H (0.02-0.09) ng/mL Assessment and Plan (1) HIV seropositivity Current Visit: Yes Status: Acute Code(s): Z21 - ASYMPTOMATIC HUMAN IMMUNODEFICIENCY VIRUS INFECTION STATUS SNOMED Code(s): 00342502 (2) Small bowel obstruction Current Visit: Yes Status: Acute Code(s): K56.609 - UNSP INTESTNL OBST, UNSP TO PARTIAL VERSUS COMPLETE OBST SNOMED Code(s): 381153157
[2021-04-23] MEDS: CEFEPIME 2 GM in SODIUM CHLORIDE 0.9% 100 ML IVPB SCH (16:52)
[2021-04-23] MEDS: metroNIDAZOLE 500 MG TAB PO SCH ×2 (17:48→21:09)
[2021-04-23] MEDS: MIRTAZAPINE 15 MG TAB PO SCH (20:22)
[2021-04-23] MEDS: AMITRIPTYLINE HCL 10 MG TAB PO SCH (20:22)
--- NOTE | 2021-04-23 23:57 | P.CONS ---
History of Present Illness - Reason for Consult Consult date: 04/23/21 Worsening leukocytosis Requesting physician: Brittney Wilson - Chief Complaint Abdominal pain, abdominal incision drainage 2 days - History of Present Illness Patient is a 60-year-old male initially presenting to the hospital more than a week ago on April 15, 2021 for evaluation of severe abdominal pain that started the day before presentation to the hospital patient was noticed to have very distended abdomen and apparently patient have last bowel movement 2 days before presentation to the hospital patient on arrival to the ER was afebrile patient did have a CT of abdominal pelvis with tissues Wardrip to be dilated small bowel with fluid levels consistent with the high-grade mechanical obstruction patient was evaluated by general surgery and he was taken to the OR 2 days later on April 17, 2021 patient is status post exploratory laparotomy with lysis of adhesion repair of incisional hernia removal of abdominal wall prosthetic material and small bowel resection patient was doing well postoperatively however 3 days ago on patient apparently was noticed to have some drainage from the middle part of his incision to where the stitches were removed and the patient did have some drainage which has not been cultured patient remains to be afebrile however the patient was noticed to have worsening of his white count which was 15,000 on 04/21/2021 and is now up to 20,000 today patient was complaining of some diarrhea with multiple loose stools however as of this evening the patient diarrhea has improved has only gone twice a day no blood or mucus in the stool the patient be complaining of abdominal pain more of a distention and the leaking 5-6 over 10 no radiation patient denies having any nausea or vomiting no chest pain shortness of breath or cough Review of Systems Positive point has been mentioned in the HPI rest of the systems are negative Past Medical History Past Medical History: COPD Additional Past Medical History / Comment(s): HIV, cellulitis in 2020 History of Any Multi-Drug Resistant Organisms: None Reported Past Surgical History: Hernia Repair, Joint Replacement Additional Past Surgical History / Comment(s): left knee, fatty tumor removed f rom lip, spinal surgery (fusion of C4 C5 and C6) Past Psychological History: No Psychological Hx Reported Smoking Status: Current every day smoker Past Alcohol Use History: None Reported Past Drug Use History: None Reported Medications and Allergies Home Medications Medication Instructions Recorded Confirmed Type Ascorbic Acid [Vitamin C] 1,000 mg PO DAILY 07/07/18 04/15/21 History Elviteg/Donna/Emtric/Tenofo Dis 1 tab PO DAILY 07/07/18 04/15/21 History [Stribild Tablet] Ipratropium/Albuterol Sulfate 1 puff INHALATION RT-QID 07/07/18 04/15/21 History [Combivent Respimat Inhaler] Mirtazapine [Remeron] 30 mg PO HS 07/07/18 04/15/21 History Multivit-Min/FA/Lycopen/Lutein 1 tab PO DAILY 07/07/18 04/15/21 History [Centrum Silver Tablet] Red Yeast Rice 1,200 mg PO DAILY 07/07/18 04/15/21 History Albuterol Inhaler [Ventolin Hfa 2 puff INHALATION RT-QID PRN 04/15/21 04/15/21 History Inhaler] Albuterol Nebulized [Ventolin 2.5 mg INHALATION RT-Q6H PRN 04/15/21 04/15/21 History Nebulized] Amitriptyline HCl [Elavil] 40 mg PO HS 04/15/21 04/15/21 History Atorvastatin [Lipitor] 20 mg PO DAILY 04/15/21 04/15/21 History Cephalexin [Keflex] 500 mg PO BID 04/15/21 04/15/21 History Clopidogrel [Plavix] 75 mg PO DAILY 04/15/21 04/15/21 History Fluticasone Nasal [place] [Flonase 1 spray EA NOSTRIL DAILY 04/15/21 04/15/21 History Nasal [place]] Ipratropium [place] [Atrovent Hfa] 2 puff INHALATION RT-DAILY 04/15/21 04/15/21 History Levothyroxine Sodium [Synthroid] 50 mcg PO DAILY 04/15/21 04/15/21 History Losartan-Hctz 50-12.5 mg [Hyzaar 1 tab PO DAILY 04/15/21 04/15/21 History 50-12.5] Potassium Chloride ER [K-Dur 10] 10 meq PO DAILY 04/15/21 04/15/21 History HYDROcodone/APAP 5-325MG [[place] 1 tab PO Q6HR PRN 3 Days #12 tab 04/20/21 Rx 5-325] Allergies Allergy/AdvReac Type Severity Reaction Status Date / Time No Known Allergies Allergy Verified 04/17/21 15:05 Physical Exam Vitals: Vital Signs Temp Pulse Pulse Resp BP BP Pulse Ox 04/23/21 15:24 80 04/23/21 15:12 80 04/23/21 13:55 98.0 F 77 18 115/66 91 L 04/23/21 12:48 80 04/23/21 12:36 80 04/23/21 08:06 84 04/23/21 07:54 84 04/23/21 07:49 97.9 F 85 20 132/80 95 04/23/21 02:00 98.8 F 87 17 126/71 95 04/22/21 20:00 96.8 F L 83 17 110/66 97 04/22/21 19:43 86 04/22/21 19:33 85 Intake and Output 04/23/21 04/23/21 04/23/21 06:59 14:59 22:59 Other: Voiding Method Toilet # Voids 2 # Bowel Movements 1 GENERAL DESCRIPTION: Middle-aged male lying in bed, no distress. No tachypnea or accessory muscle of respiration use. HEENT: Shows Pallor , no scleral icterus. Oral mucous membrane is dry. No pharyngeal erythema or thrush NECK: Trachea central, no thyromegaly. LUNGS: Unlabored breathing. Clear to auscultation anteriorly. No wheeze or crackle. HEART: S1, S2, regular rate and rhythm. No loud murmur ABDOMEN: Soft, middle part of midline incision is open with some purulent drainage EXTREMITIES: No edema of feet. SKIN: No rash, no masses palpable. NEUROLOGICAL: The patient is awake, alert, oriented x3, mood and affect normal. Results CBC & Chem 7: 04/23/21 05:37 04/23/21 05:37 Labs: Abnormal Lab Results - Last 24 Hours (Table) 04/23/21 04/23/21 04/23/21 Range/Units 05:37 05:37 05:37 WBC 20.07 H (4.50-10.00) X 10*3/uL RBC 4.04 L (4.40-5.60) X 10*6/uL Hgb 11.9 L (13.0-17.0) g/dL Hct 37.0 L (39.6-50.0) % RDW 15.0 H (11.5-14.5) % Plt Count 451 H (140-440) X 10*3/uL MPV 9.2 L (9.5-12.2) fL Immature Gran # 0.14 H (0.00-0.04) X 10*3/uL Neutrophils # 15.40 H (1.80-7.70) X 10*3/uL Monocytes # 1.37 H (0.20-1.00) X 10*3/uL Potassium 3.2 L (3.5-5.5) mmol/L BUN 7.5 L (9.0-27.0) mg/dL BUN/Creatinine Ratio 11.57 L (12.00-20.00) Ratio Calcium 8.6 L (8.7-10.3) mg/dL C-Reactive Protein 18.40 H (0.00-0.80) mg/dL Procalcitonin 0.22 H (0.02-0.09) ng/mL Assessment and Plan (1) Leukocytosis Current Visit: Yes Status: Acute Code(s): D72.829 - ELEVATED WHITE BLOOD CELL COUNT, UNSPECIFIED SNOMED Code(s): 222319098 Plan: 1patient with significant leukocytosis more likely abdominal source in this patient admitted to the hospital with mechanical small bowel obstruction status post laparotomy lysis of hydration and resection of portion of small bowel surgery was completed on 04/17/2021 now noticed to have some drainage from the middle part of the incision with concern for possible leak. 2we will obtain blood cultures and local cultures both aerobic and anaerobic. 3patient benefit from CT abdominal pelvis to make sure no evidence of any intra-abdominal abscess. 4antibiotic has been adjusted to cefepime and Flagyl We will follow on clinical condition and cultures to further adjust medication if needed Thank you for this consultation will follow this patient along with you Time with Patient: Greater than 30
[2021-04-24] MEDS: CEFEPIME 2 GM in SODIUM CHLORIDE 0.9% 100 ML IVPB SCH ×4 (00:02→21:33)
[2021-04-24] MEDS: ONDANSETRON 4 MG/2 ML VIAL IVP PRN ×2 (01:37→08:28)
[2021-04-24] MEDS: HYDROcodone/APAP 5-325MG 1 EACH TAB PO PRN ×2 (01:37→08:28)
[2021-04-24] MEDS: LEVOTHYROXINE 50 MCG TAB PO SCH (05:38)
[2021-04-24] MEDS: SYMBICORT 160-4.5 MCG INHALER INHALATION SCH ×2 (07:39→20:52)
[2021-04-24] MEDS: IPRATROPIUM-ALBUTEROL 3 ML NEB INHALATION SCH ×4 (07:39→20:52)
[2021-04-24] MEDS: NICOTINE 21MG/24HR PATCH TRANSDERM SCH (08:22)
[2021-04-24] MEDS: [UNRECOGNIZED DRUG - OTHER] PO SCH (08:22)
[2021-04-24] MEDS: FLUTICASONE 50MCG/SPRAY NASAL 16GM EA NOSTRIL SCH (08:23)
[2021-04-24] MEDS: metroNIDAZOLE 500 MG TAB PO SCH ×3 (08:23→21:33)
[2021-04-24] MEDS: MULTIVITAMINS, THERA 1 EACH TAB PO SCH (08:23)
[2021-04-24] MEDS: CLOPIDOGREL 75 MG TAB PO SCH (08:23)
[2021-04-24] MEDS: ATORVASTATIN 20 MG TAB PO SCH (08:23)
[2021-04-24] MEDS: PANTOPRAZOLE 40 MG/10 ML VIAL IV SCH (08:23)
[2021-04-24] MEDS: LOSARTAN-HCTZ 50-12.5 MG 1 EACH TAB PO SCH (08:23)
[2021-04-24] MEDS: ASCORBIC ACID 500 MG TAB PO SCH (08:23)
[2021-04-24] MEDS: ENOXAPARIN 40 MG/0.4 ML SYRINGE SQ SCH (08:23)
[2021-04-24] MEDS: POTASSIUM CHLORIDE ER 10 MEQ TAB.ER.PRT PO SCH (08:23)
[2021-04-24 10:19] LABS: HCT 38.2 % (39.6-50.0); HGB 12.1 g/dL (13.0-17.0); MCH 29.2 pg (27.0-32.0); MCHC 31.7 g/dL (32.0-37.0); Mean Platelet Volume 9.7 fL (9.5-12.2); NRBC Per 100 WBC 0 /100 WBCS (0.0-0.0); Platelet Count 487 X 10*3/uL (140-440); RBC 4.15 X 10*6/uL (4.40-5.60); RDW 15.1 % (11.5-14.5); WBC 26.81 X 10*3/uL (4.50-10.00)
[2021-04-24 10:29] LABS: African American GFR (CKD) 127.6 (60.0-200.0); Anion Gap 17.7 mmol/L (10.00-18.00); BUN/Creat Ratio 12.83 Ratio (12.00-20.00); Blood Urea Nitrogen 7.7 mg/dL (9.0-27.0); Carbon Dioxide 19.3 mmol/L (20.0-27.5); Non-African American GFR(CKD) 110.1 (60.0-200.0); Potassium 3.6 mmol/L (3.5-5.5)
[2021-04-24 11:59] LABS: Basophils % (A) 0.4 %; Eosinophils % (A) 1.1 %; Lymphocytes # (A) 2.58 X 10*3/uL (0.90-5.00); Lymphocytes % (A) 9.6 %; Monocytes # (A) 1.45 X 10*3/uL (0.20-1.00); Monocytes % (A) 5.4 %; Neutrophils # (A) 22.11 X 10*3/uL (1.80-7.70); Neutrophils % (A) 82.5 %
--- NOTE | 2021-04-24 13:42 | P.PN ---
Subjective Progress Note Date: 04/24/21 CHIEF COMPLAINT: Small bowel obstruction HISTORY OF PRESENT ILLNESS: Patient is status post exploratory laparotomy, lysis of adhesions, small bowel resection, repair of incisional hernia and removal of abdominal wall prosthetic material for small bowel obstruction, incisional hernia and adhesions. Postop day #7. Patient is having more purulent drainage from the abdominal incision. Does report an increase in abdominal pain over the weekend. White count has increased from 26.81. He is afebrile. He is having bowel movements and flatus. Denies any vomiting. But has had nausea. Hemoglobin 12.1 platelets 47 sodium 135 potassium 3.6 creatinine 0.6 PHYSICAL EXAM: VITAL SIGNS: Reviewed. GENERAL: Well-developed in no acute distress. HEENT: No sclera icterus. Extraocular movements grossly intact. Moist buccal mucosa. Head is atraumatic, normocephalic. ABDOMEN: Soft. Distended. Tenderness with palpation around the incision. Erythema at the incision site. Purulent drainage noted from 2 areas on the incision NEUROLOGIC: Alert and oriented. Cranial nerves II through XII grossly intact. ASSESSMENT: 1. Status post exploratory laparotomy, lysis of adhesions, small bowel resection, repair of incisional hernia and removal of abdominal wall prosthetic material for small bowel obstruction, incisional hernia and adhesions 2. Abdominal incision infection PLAN: -Continue full liquids -4 jerzy removed in the upper portion of the incision. There was a small amount of purulent serosanguineous drainage. -Continue antibiotics -Continue pain medication as needed -Continue supportive care -Zofran dose adjusted to every 6 hours as needed -Encouraged patient to ambulate in hallways -Encouraged patient to use incentive spirometer -GI prophylaxis Protonix and DVT prophylaxis Lovenox Physician Account Resolution Expert note has been reviewed by physician. Signing provider agrees with the documented findings, assessment, and plan of care. Objective - Vital Signs Vital signs: Vital Signs Temp 98.6 F 04/24/21 08:00 Pulse 86 04/24/21 13:04 Resp 16 04/24/21 08:00 BP 111/70 04/24/21 08:00 Pulse Ox 92 L 04/24/21 08:00 Intake & Output 04/23/21 04/24/21 04/24/21 18:59 06:59 18:59 Output Total 550 Balance -550 Weight 99.79 kg Output: Urine 550 Other: Voiding Method Toilet Toilet Toilet # Voids 4 4 # Bowel Movements 2 1 - Labs CBC & Chem 7: 04/24/21 04:39 04/24/21 04:39 Labs: Abnormal Lab Results - Last 24 Hours (Table) 04/24/21 04/24/21 Range/Units 04:39 04:39 WBC 26.81 H (4.50-10.00) X 10*3/uL RBC 4.15 L (4.40-5.60) X 10*6/uL Hgb 12.1 L (13.0-17.0) g/dL Hct 38.2 L (39.6-50.0) % MCHC 31.7 L (32.0-37.0) g/dL RDW 15.1 H (11.5-14.5) % Plt Count 487 H (140-440) X 10*3/uL Plt Count Comment INCREASED A Immature Gran # 0.27 H (0.00-0.04) X 10*3/uL Neutrophils # 22.11 H (1.80-7.70) X 10*3/uL Monocytes # 1.45 H (0.20-1.00) X 10*3/uL Carbon Dioxide 19.3 L (20.0-27.5) mmol/L BUN 7.7 L (9.0-27.0) mg/dL Microbiology - Last 24 Hours (Table) 04/23/21 17:19 Gram Stain - Preliminary Abdomen Wound Culture - Preliminary 04/23/21 17:19 Anaerobic Culture - Preliminary Abdomen
--- NOTE | 2021-04-24 14:18 | P.PN ---
Subjective Progress Note Date: 04/24/21 04/19/2021 This is a 60-year-old male who was recently admitted under surgical services for acute small bowel obstruction and underwent exploratory laparotomy, lysis of adhesions and small bowel resection with repair of incisional hernia and removal of abdominal wall prosthetic with Dr. Elizabeth. Patient continues on ice chips only and continues with NG tube and is requesting if it can be removed. Patient reports the passing gas and denies any increasing abdominal pain. Patient states his discomfort is with the NG tube. Patient denies chest pain, shortness of breath, or palpitations. Patient is afebrile. Patient continues on gentle IV hydration 04/20/2021 Patient is seen today and having some nausea with one episode of vomiting. NG tube removed yesterday and maintain on clear liquids. Patient denies passing gas and no bowel movement as of yet. General surgery following. Encouraged increase activity as tolerated. Encouraged incentive spirometer use at least 10 times per hour while awake. Patient is afebrile. WBC trending down. Patient continues on 3L via NC and states he does not wear oxygen at home. Wean FI02 as tolerated. 04/21/2021 Patient is seen this morning and resting although easily arousable. Patient is continued on clear liquids and tolerating with no further episodes of nausea or vomiting. Patient is passing gas and having multiple episodes of loose stool and will obtain cdiff and possible imodium although recommend discussing with primary team prior to starting that. WBC elevated of 15 and being started on cefazolin. Some mild drainage noted of the lower surgical site and some jerzy to be removed today. 04/23/2021 Vital signs are reviewed temperature 98.0, pulse 77, blood pressure 115/66 Patient is seen and evaluated sitting up in bedside chair; denies any worsening abdominal pain Labs revealed worsening WBC count of 20.7; CRP of 18.4 but pro-calcitonin remains low at 0.2 Patient is currently on IV Ancef; we will discontinue and start patient on IV cefepime; we'll consult ID for further recommendations 04/24/2021 Patient is seen and evaluated and follow-up currently undergoing abdominal incision dressing change and is noted to have increased purulent drainage noted and is maintained on IV cefepime with infectious disease following. White blood count continues to be elevated and is currently 26.81 today. BMP within normal limits. CRP yesterday was 18.4 and pro-calcitonin 0.22. C. diff was negative. Patient continues on full liquid diet and discussed the surgery about possible CT abdomen for further evaluation. Patient is afebrile. Patient denies any chest pain or shortness of breath. Patient encouraged to increase activity as tolerated. Recommend continue with incentive spirometer at least 10 times every hour while awake. Review of systems: Constitutional: No reports of fatigue, fever, or chills Cardiovascular: No reports of chest pain or palpitations Respiratory: No reports of shortness of breath or cough GI: reports of nausea, no reports of of vomiting, patient is passing gas and having bowel movements, reports increased abdominal swelling and discomfort today : No reports of dysuria or retention Neurovascular: No reports of weakness or numbness All medications have been reviewed Active Medications Hydrocodone Bitart/Acetaminophen (Hydrocodone/Apap 5-325mg 1 Each Tab) 1 each PO Q4HR PRN PRN Reason: moderate Pain Last Admin: 04/24/21 08:28 Dose: 1 each Documented by: Albuterol Sulfate (Albuterol Nebulized 2.5 Mg/3 Ml) 2.5 mg INHALATION RT-Q6H PRN PRN Reason: Shortness Of Breath Last Admin: 04/21/21 17:34 Dose: 2.5 mg Documented by: Albuterol/Ipratropium (Ipratropium-Albuterol 3 Ml Neb) 3 ml INHALATION RT-QID [facility] Last Admin: 04/24/21 12:54 Dose: 3 ml Documented by: Amitriptyline HCl (Amitriptyline Hcl 10 Mg Tab) 40 mg PO HS [facility] Last Admin: 04/23/21 20:22 Dose: 40 mg Documented by: Ascorbic Acid (Ascorbic Acid 500 Mg Tab) 1,000 mg PO DAILY [facility] Last Admin: 04/24/21 08:23 Dose: 1,000 mg Documented by: Atorvastatin Calcium (Atorvastatin 20 Mg Tab) 20 mg PO DAILY [facility] Last Admin: 04/24/21 08:23 Dose: 20 mg Documented by: Budesonide/Formoterol Fumarate (Symbicort 160-4.5 Mcg Inhaler) 2 puff INHALATION RT-BID [facility] Last Admin: 04/24/21 07:39 Dose: 2 puff Documented by: Clopidogrel Bisulfate (Clopidogrel 75 Mg Tab) 75 mg PO DAILY [facility] Last Admin: 04/24/21 08:23 Dose: 75 mg Documented by: Enoxaparin Sodium (Enoxaparin 40 Mg/0.4 Ml Syringe) 40 mg SQ DAILY [facility] Last Admin: 04/24/21 08:23 Dose: 40 mg Documented by: Fluticasone Propionate (Fluticasone 50mcg/[place] Nasal 16gm) 1 spray EA NOSTRIL DAILY [facility] Last Admin: 04/24/21 08:23 Dose: Not Given Documented by: HCTZ/Losartan Potassium (Losartan-Hctz 50-12.5 Mg 1 Each Tab) 1 each PO DAILY [facility] Last Admin: 04/24/21 08:23 Dose: 1 each Documented by: Hydromorphone HCl (Hydromorphone 1 Mg/Ml 1 Ml Syringe) 0.5 mg IVP Q3HR PRN PRN Reason: Moderate Pain Last Admin: 04/17/21 19:54 Dose: 0.5 mg Documented by: Hydromorphone HCl (Hydromorphone 1 Mg/Ml 1 Ml Syringe) 1 mg IVP Q3HR PRN PRN Reason: Severe Pain Last Admin: 04/20/21 23:41 Dose: 1 mg Documented by: Sodium Chloride (Saline 0.9%) 1,000 mls @ 50 mls/hr IV .Q20H [facility] Last Admin: 04/23/21 21:12 Dose: Not Given Documented by: Cefepime HCl 2 gm/ Sodium (Chloride) 100 mls @ 25 mls/hr IVPB Q8HR [facility] Last Admin: 04/24/21 08:23 Dose: 25 mls/hr Documented by: Levothyroxine Sodium (Levothyroxine 50 Mcg Tab) 50 mcg PO DAILY@0630 [facility] Last Admin: 04/24/21 05:38 Dose: 50 mcg Documented by: Metoclopramide HCl (Metoclopramide 5 Mg/Ml 2 Ml Vial) 10 mg IVP Q6HR PRN PRN Reason: Nausea And Vomiting Last Admin: 04/21/21 02:16 Dose: 10 mg Documented by: Metronidazole (Metronidazole 500 Mg Tab) 500 mg PO TID [facility] Last Admin: 04/24/21 08:23 Dose: 500 mg Documented by: Mirtazapine (Mirtazapine 15 Mg Tab) 30 mg PO HS [facility] Last Admin: 04/23/21 20:22 Dose: 30 mg Documented by: Miscellaneous Information (Potassium Replacement Protocol 1 Each Misc) 1 each MISCELLANE DAILY PRN; Protocol PRN Reason: Per Protocol Multivitamins (Multivitamins, Thera 1 Each Tab) 1 each PO DAILY [facility] Last Admin: 04/24/21 08:23 Dose: 1 each Documented by: Naloxone HCl (Naloxone 0.4 Mg/Ml 1 Ml Vial) 0.2 mg IV Q2M PRN PRN Reason: Opioid Reversal Nicotine (Nicotine 21mg/24hr Patch) 1 patch TRANSDERM DAILY [facility] Last Admin: 04/24/21 08:22 Dose: 1 patch Documented by: Non-Formulary Medication (Elviteg/Donna/Emtric/Tenofo Dis [Stribild Tablet]) 1 tab PO DAILY [facility] Last Admin: 04/24/21 08: Dose: 1 tab Documented by: Ondansetron HCl (Ondansetron 4 Mg/2 Ml Vial) 4 mg IVP Q6HR PRN PRN Reason: Nausea And Vomiting Last Admin: 04/24/21 08:28 Dose: 4 mg Documented by: Pantoprazole Sodium (Pantoprazole 40 Mg/10 Ml Vial) 40 mg IV DAILY [facility] Last Admin: 04/24/21 08:23 Dose: 40 mg Documented by: Potassium Chloride (Potassium Chloride Er 10 Meq Tab.Er.Prt) 10 meq PO DAILY [facility] Last Admin: 04/24/21 08:23 Dose: 10 meq Documented by: PHYSICAL EXAMINATION: GENERAL: The patient is alert and oriented x4, Well developed, well nourished. HEENT: Pupils are round and equally reacting to light. EOMI. does have scleral icterus. No conjunctival pallor. Normocephalic, atraumatic. No pharyngeal erythema. No thyromegaly. CARDIOVASCULAR: S1 and S2 muffled PULMONARY: diminished breath sounds bilaterally with Few scattered rhonchi noted. ABDOMEN: soft. Tender on exam. obese. mildly-distended, normoactive bowel sounds. No palpable organomegaly. MUSCULOSKELETAL: No joint swelling or deformity. EXTREMITIES: No cyanosis, clubbing, or pedal edema. NEUROLOGICAL: Gross neurological examination did not reveal any focal deficits. SKIN: No rashes. Assessment: Acute small bowel obstruction, status post exploratory laparotomy, lysis of adhesions, small bowel resection Abdominal incision infection with purulent drainage noted Chronic obstructive pulmonary disease leukocytosis hypertension GI prophylaxis DVT prophylaxis Plan: Recommend to continue with gentle IV hydration and patient is maintained on full liquids. Patient denies any further episode of nausea or vomiting today. Patient is having multiple frequent loose stools and for cdiff is negative. Patient is maintained on IV cefepime and infectious disease now following for possible abdominal incision infection as there is noted prevent drainage and increased distention of the abdomen with some jerzy removed. CT abdomen is ordered and pending per surgical services. Encouraged incentive spirometer use at least 10 times every hour while awake and increase activity as tolerated. Patient does have duonebs ordered although has been refusing. Patient is afebrile. White blood count elevated and recommend repeat labs in the morning. Patient continues on 2 L via nasal cannula and encouraged increase activity and continued coughing and deep breathing along with incentive spirometer. Wean Fi02 as tolerated. Patient denies worsening shortness of breath. Will continue to follow along with surgery during hospitalization. Prognosis is guarded. The impression and plan of care has been dictated by Marzena Moore, nurse practitioner as directed. MD Leydi I have performed a history and examination and MDM of this patient, discussed the same with the dictator, and agree with the dictator's assessment and plan as written ,documented as a scribe. Based on total visit time, I have performed more than 50% of the visit. Any additional findings or plans will be noted. Objective - Vital Signs Vital signs: Vital Signs Temp 98.7 F 04/24/21 02:00 Pulse 88 04/24/21 07:51 Resp 18 04/24/21 02:00 BP 105/66 04/24/21 02:00 Pulse Ox 92 L 04/24/21 02:00 Intake & Output 04/23/21 04/24/21 04/24/21 18:59 06:59 18:59 Output Total 550 Balance -550 Output: Urine 550 Other: Voiding Method Toilet Toilet # Voids 4 4 # Bowel Movements 2 1 - Labs CBC & Chem 7: 04/24/21 04:39 04/24/21 04:39 Labs: Microbiology - Last 24 Hours (Table) 04/23/21 17:19 Gram Stain - Preliminary Abdomen Wound Culture - Preliminary 04/23/21 17:19 Anaerobic Culture - Preliminary Abdomen
[2021-04-24] MEDS: HYDROmorphone 1 MG/ML 1 ML SYRINGE IVP PRN (15:00)
[2021-04-24] MEDS: METOCLOPRAMIDE 5 MG/ML 2 ML VIAL IVP PRN (16:58)
[2021-04-24] MEDS: SODIUM CHLORIDE 0.9% 1,000 ML IV SCH (17:37)
[2021-04-24] MEDS: AMITRIPTYLINE HCL 10 MG TAB PO SCH (21:32)
[2021-04-24] MEDS: MIRTAZAPINE 15 MG TAB PO SCH (21:33)
[2021-04-25] MEDS: LEVOTHYROXINE 50 MCG TAB PO SCH (05:31)
[2021-04-25] MEDS: IPRATROPIUM-ALBUTEROL 3 ML NEB INHALATION SCH ×4 (08:14→19:47)
[2021-04-25] MEDS: SYMBICORT 160-4.5 MCG INHALER INHALATION SCH ×2 (08:15→19:47)
[2021-04-25] MEDS: [UNRECOGNIZED DRUG - OTHER] PO SCH (09:05)
[2021-04-25] MEDS: NICOTINE 21MG/24HR PATCH TRANSDERM SCH (09:05)
[2021-04-25] MEDS: CEFEPIME 2 GM in SODIUM CHLORIDE 0.9% 100 ML IVPB SCH ×2 (09:05→16:50)
[2021-04-25] MEDS: POTASSIUM CHLORIDE ER 10 MEQ TAB.ER.PRT PO SCH (09:06)
[2021-04-25] MEDS: CLOPIDOGREL 75 MG TAB PO SCH (09:06)
[2021-04-25] MEDS: ENOXAPARIN 40 MG/0.4 ML SYRINGE SQ SCH (09:06)
[2021-04-25] MEDS: PANTOPRAZOLE 40 MG/10 ML VIAL IV SCH (09:06)
[2021-04-25] MEDS: LOSARTAN-HCTZ 50-12.5 MG 1 EACH TAB PO SCH (09:06)
[2021-04-25] MEDS: ATORVASTATIN 20 MG TAB PO SCH (09:06)
[2021-04-25] MEDS: metroNIDAZOLE 500 MG TAB PO SCH ×3 (09:07→21:30)
[2021-04-25] MEDS: ASCORBIC ACID 500 MG TAB PO SCH (09:07)
[2021-04-25] MEDS: MULTIVITAMINS, THERA 1 EACH TAB PO SCH (09:07)
[2021-04-25] MEDS: FLUTICASONE 50MCG/SPRAY NASAL 16GM EA NOSTRIL SCH (09:08)
[2021-04-25] MEDS ORDERED: VANCOMYCIN IV PER PHARMACY 1 EACH MISC MISCELLANE PRN (10:18)
[2021-04-25] MEDS ORDERED: VANCOMYCIN 1,750 MG in SODIUM CHLORIDE 0.9% 500 ML 500 ML IVPB ONE (11:00)
[2021-04-25 11:03] LABS: Basophils # (A) 0.1 k/uL (0-0.2); Basophils % (A) 0 %; Eosinophils # (A) 0.3 k/uL (0-0.7); Eosinophils % (A) 1 %; HCT 36.4 % (39.0-53.0); HGB 11.9 gm/dL (13.0-17.5); Lymphocytes # (A) 2.2 k/uL (1.0-4.8); Lymphocytes % (A) 11 %; MCH 31.4 pg (25.0-35.0); MCHC 32.7 g/dL (31.0-37.0); Mean Platelet Volume 7.5; Monocytes # (A) 1.4 k/uL (0-1.0); Monocytes % (A) 7 %; Neutrophils # (A) 15.9 k/uL (1.3-7.7); Neutrophils % (A) 79 %; Platelet Count 520 k/uL (150-450); RBC 3.79 m/uL (4.30-5.90); RDW 14.3 % (11.5-15.5); WBC 20.2 k/uL (3.8-10.6)
[2021-04-25 11:13] LABS: African American GFR (CKD) >90 (>60 ml/min/1.73 sqM); Anion Gap 8 mmol/L; Blood Urea Nitrogen 6 mg/dL (9-20); Calcium 8.8 mg/dL (8.4-10.2); Carbon Dioxide 23 mmol/L (22-30); Chloride 104 mmol/L (98-107); Glucose 94 mg/dL (74-99); Non-African American GFR(CKD) >90 (>60 ml/min/1.73 sqM); Potassium 3.1 mmol/L (3.5-5.1); Sodium 135 mmol/L (137-145)
[2021-04-25] MEDS: SODIUM CHLORIDE 0.9% 1,000 ML IV SCH (13:28)
[2021-04-25] MEDS ORDERED: POTASSIUM CHLORIDE ER 20 MEQ TAB.ER PO STA (15:24)
--- NOTE | 2021-04-25 15:32 | P.PN ---
Subjective Progress Note Date: 04/25/21 04/19/2021 This is a 60-year-old male who was recently admitted under surgical services for acute small bowel obstruction and underwent exploratory laparotomy, lysis of adhesions and small bowel resection with repair of incisional hernia and removal of abdominal wall prosthetic with Dr. Elizabeth. Patient continues on ice chips only and continues with NG tube and is requesting if it can be removed. Patient reports the passing gas and denies any increasing abdominal pain. Patient states his discomfort is with the NG tube. Patient denies chest pain, shortness of breath, or palpitations. Patient is afebrile. Patient continues on gentle IV hydration 04/20/2021 Patient is seen today and having some nausea with one episode of vomiting. NG tube removed yesterday and maintain on clear liquids. Patient denies passing gas and no bowel movement as of yet. General surgery following. Encouraged increase activity as tolerated. Encouraged incentive spirometer use at least 10 times per hour while awake. Patient is afebrile. WBC trending down. Patient continues on 3L via [place] and states he does not wear oxygen at home. Wean FI02 as tolerated. 04/21/2021 Patient is seen this morning and resting although easily arousable. Patient is continued on clear liquids and tolerating with no further episodes of nausea or vomiting. Patient is passing gas and having multiple episodes of loose stool and will obtain cdiff and possible imodium although recommend discussing with primary team prior to starting that. WBC elevated of 15 and being started on cefazolin. Some mild drainage noted of the lower surgical site and some jerzy to be removed today. 04/23/2021 Vital signs are reviewed temperature 98.0, pulse 77, blood pressure 115/66 Patient is seen and evaluated sitting up in bedside chair; denies any worsening abdominal pain Labs revealed worsening WBC count of 20.7; CRP of 18.4 but pro-calcitonin remains low at 0.2 Patient is currently on IV Ancef; we will discontinue and start patient on IV cefepime; we'll consult ID for further recommendations 04/24/2021 Patient is seen and evaluated and follow-up currently undergoing abdominal incision dressing change and is noted to have increased purulent drainage noted and is maintained on IV cefepime with infectious disease following. White blood count continues to be elevated and is currently 26.81 today. BMP within normal limits. CRP yesterday was 18.4 and pro-calcitonin 0.22. C. diff was negative. Patient continues on full liquid diet and discussed the surgery about possible CT abdomen for further evaluation. Patient is afebrile. Patient denies any chest pain or shortness of breath. Patient encouraged to increase activity as tolerated. Recommend continue with incentive spirometer at least 10 times every hour while awake. 04/25/2021 Patient is seen in follow-up this morning currently sitting up in bed and states his abdominal pain is somewhat improved. Patient's abdomen continues to be distended although patient states this is his baseline and does not feel he is distended. Patient continues with drainage noted at the surgical site and awaiting dressing change. Patient continues on IV antibiotics in the form of cefepime and vancomycin and preliminary culture showing gram-negative bacilli along with group D enterococcus and infectious disease is following closely. Patient states he was up and walking yesterday and today. Patient denies any shortness of breath or chest pain patient is currently on room air and has been intimately using 2-3 L via nasal cannula. Patient does have history of COPD and has breathing inhalational treatments and will continue. Potassium slightly low at 3.1 and will replace and repeat labs. White blood count trending down and is currently 20.2. Patient is afebrile. Review of systems: Constitutional: No reports of fatigue, fever, or chills Cardiovascular: No reports of chest pain or palpitations Respiratory: No reports of shortness of breath or cough GI: reports of nausea, no reports of of vomiting, patient is passing gas and having bowel movements, reports improved abdominal discomfort today : No reports of dysuria or retention Neurovascular: No reports of weakness or numbness All medications have been reviewed Active Medications Hydrocodone Bitart/Acetaminophen (Hydrocodone/Apap 5-325mg 1 Each Tab) 1 each PO Q4HR PRN PRN Reason: moderate Pain Last Admin: 04/24/21 08:28 Dose: 1 each Documented by: Albuterol Sulfate (Albuterol Nebulized 2.5 Mg/3 Ml) 2.5 mg INHALATION RT-Q6H PRN PRN Reason: Shortness Of Breath Last Admin: 04/21/21 17:34 Dose: 2.5 mg Documented by: Albuterol/Ipratropium (Ipratropium-Albuterol 3 Ml Neb) 3 ml INHALATION RT-QID [facility] Last Admin: 04/25/21 15:06 Dose: Not Given Documented by: Amitriptyline HCl (Amitriptyline Hcl 10 Mg Tab) 40 mg PO HS [facility] Last Admin: 04/24/21 21:32 Dose: 40 mg Documented by: Ascorbic Acid (Ascorbic Acid 500 Mg Tab) 1,000 mg PO DAILY [facility] Last Admin: 04/25/21 09:07 Dose: 1,000 mg Documented by: Atorvastatin Calcium (Atorvastatin 20 Mg Tab) 20 mg PO DAILY [facility] Last Admin: 04/25/21 09:06 Dose: 20 mg Documented by: Budesonide/Formoterol Fumarate (Symbicort 160-4.5 Mcg Inhaler) 2 puff INHALATION RT-BID [facility] Last Admin: 04/25/21 08:15 Dose: 2 puff Documented by: Clopidogrel Bisulfate (Clopidogrel 75 Mg Tab) 75 mg PO DAILY [facility] Last Admin: 04/25/21 09:06 Dose: 75 mg Documented by: Enoxaparin Sodium (Enoxaparin 40 Mg/0.4 Ml Syringe) 40 mg SQ DAILY [facility] Last Admin: 04/25/21 09:06 Dose: 40 mg Documented by: Fluticasone Propionate (Fluticasone 50mcg/[place] Nasal 16gm) 1 spray EA NOSTRIL DAILY [facility] Last Admin: 04/25/21 09:08 Dose: 1 spray Documented by: HCTZ/Losartan Potassium (Losartan-Hctz 50-12.5 Mg 1 Each Tab) 1 each PO DAILY [facility] Last Admin: 04/25/21 09:06 Dose: 1 each Documented by: Hydromorphone HCl (Hydromorphone 1 Mg/Ml 1 Ml Syringe) 0.5 mg IVP Q3HR PRN PRN Reason: Moderate Pain Last Admin: 04/17/21 19:54 Dose: 0.5 mg Documented by: Hydromorphone HCl (Hydromorphone 1 Mg/Ml 1 Ml Syringe) 1 mg IVP Q3HR PRN PRN Reason: Severe Pain Last Admin: 04/24/21 15:00 Dose: 1 mg Documented by: Sodium Chloride (Saline 0.9%) 1,000 mls @ 50 mls/hr IV .Q20H [facility] Last Admin: 04/25/21 13:28 Dose: Not Given Documented by: Cefepime HCl 2 gm/ Sodium (Chloride) 100 mls @ 25 mls/hr IVPB Q8HR [facility] Last Admin: 04/25/21 09:05 Dose: 25 mls/hr Documented by: Vancomycin HCl 1,750 mg/ (Sodium Chloride) 500 mls @ 167 mls/hr IVPB Q8H [facility] Levothyroxine Sodium (Levothyroxine 50 Mcg Tab) 50 mcg PO DAILY@0630 [facility] Last Admin: 04/25/21 05:31 Dose: 50 mcg Documented by: Metoclopramide HCl (Metoclopramide 5 Mg/Ml 2 Ml Vial) 10 mg IVP Q6HR PRN PRN Reason: Nausea And Vomiting Last Admin: 04/24/21 16:58 Dose: 10 mg Documented by: Metronidazole (Metronidazole 500 Mg Tab) 500 mg PO TID [facility] Last Admin: 04/25/21 09:07 Dose: 500 mg Documented by: Mirtazapine (Mirtazapine 15 Mg Tab) 30 mg PO HS [facility] Last Admin: 04/24/21 21:33 Dose: 30 mg Documented by: Miscellaneous Information (Potassium Replacement Protocol 1 Each Mis) 1 each MISCELLANE DAILY PRN; Protocol PRN Reason: Per Protocol Miscellaneous Information (Vancomycin Iv Per Pharmacy 1 Each [facility]) 1 each MISCELLANE DIRECTED PRN; Protocol PRN Reason: Per Protocol Multivitamins (Multivitamins, Thera 1 Each Tab) 1 each PO DAILY [facility] Last Admin: 04/25/21 09:07 Dose: 1 each Documented by: Naloxone HCl (Naloxone 0.4 Mg/Ml 1 Ml Vial) 0.2 mg IV Q2M PRN PRN Reason: Opioid Reversal Nicotine (Nicotine 21mg/24hr Patch) 1 patch TRANSDERM DAILY [facility] Last Admin: 04/25/21 09:05 Dose: 1 patch Documented by: Non-Formulary Medication (Elviteg/Donna/Emtric/Tenofo Dis [Stribild Tablet]) 1 tab PO DAILY [facility] Last Admin: 04/25/21 09:05 Dose: 1 tab Documented by: Ondansetron HCl (Ondansetron 4 Mg/2 Ml Vial) 4 mg IVP Q6HR PRN PRN Reason: Nausea And Vomiting Last Admin: 04/24/21 08:28 Dose: 4 mg Documented by: Pantoprazole Sodium (Pantoprazole 40 Mg/10 Ml Vial) 40 mg IV DAILY [facility] Last Admin: 04/25/21 09:06 Dose: 40 mg Documented by: Potassium Chloride (Potassium Chloride Er 10 Meq Tab.Er.Prt) 10 meq PO DAILY [facility] Last Admin: 04/25/21 09:06 Dose: 10 meq Documented by: Potassium Chloride (Potassium Chloride Er 20 Meq Tab.Er) 40 meq PO ONCE STA Stop: 04/25/21 15:25 PHYSICAL EXAMINATION: GENERAL: The patient is alert and oriented x4, Well developed, well nourished. HEENT: Pupils are round and equally reacting to light. EOMI. does have scleral icterus. No conjunctival pallor. Normocephalic, atraumatic. No pharyngeal erythema. No thyromegaly. CARDIOVASCULAR: S1 and S2 muffled PULMONARY: diminished breath sounds bilaterally with Few scattered rhonchi noted. ABDOMEN: soft. Tender on exam. obese. mildly-distended, normoactive bowel sounds. No palpable organomegaly. Surgical dressing being changed with dried purulent drainage noted on the dressing MUSCULOSKELETAL: No joint swelling or deformity. EXTREMITIES: No cyanosis, clubbing, or pedal edema. NEUROLOGICAL: Gross neurological examination did not reveal any focal deficits. SKIN: No rashes. Assessment: Acute small bowel obstruction, status post exploratory laparotomy, lysis of adhesions, small bowel resection Abdominal incision infection with purulent drainage noted, preliminary cultures growing gram-negative bacilli and group D enterococcus Chronic obstructive pulmonary disease Mild hypokalemia leukocytosis hypertension GI prophylaxis DVT prophylaxis Full code with no intubation Plan: Recommend to continue with gentle IV hydration and patient is maintained on full liquids. Patient is having multiple loose stools. Patient is maintained on IV cefepime along with vancomycin and infectious disease now following for possible abdominal incision infection as there is noted purulent drainage at the surgical site. Preliminary culture showing group D enterococcus along with gram-negative bacilli and awaiting finalized cultures. Encouraged incentive spirometer use at least 10 times every hour while awake and increase activity as tolerated. Patient does have duonebs ordered scheduled and as needed. Patient is afebrile. White blood count trending down and recommend repeat labs in the morning. Patient continues on 2 L via nasal cannula and encouraged increase activity and continued coughing and deep breathing along with incentive spirometer. Wean Fi02 as tolerated. Will continue to follow along with surgery during hospitalization. Prognosis is guarded. The impression and plan of care has been dictated by Marzena Moore, nurse practitioner as directed. MD Leydi I have performed a history and examination and MDM of this patient, discussed the same with the dictator, and agree with the dictator's assessment and plan as written ,documented as a scribe. Based on total visit time, I have performed more than 50% of the visit. Any additional findings or plans will be noted. Objective - Vital Signs Vital signs: Vital Signs Temp 98.1 F 04/25/21 08:00 Pulse 82 04/25/21 08:25 Resp 18 04/25/21 08:25 BP 132/74 04/25/21 08:00 Pulse Ox 93 L 04/25/21 08:15 Intake & Output 04/24/21 04/25/21 04/25/21 18:59 06:59 18:59 Weight 99.79 kg Other: Voiding Method Toilet # Voids 4 2 # Bowel Movements 1 1 - Labs CBC & Chem 7: 04/25/21 10:28 04/25/21 10:28 Labs: Abnormal Lab Results - Last 24 Hours (Table) 04/24/21 04/24/21 Range/Units 04:39 04:39 WBC 26.81 H (4.50-10.00) X 10*3/uL RBC 4.15 L (4.40-5.60) X 10*6/uL Hgb 12.1 L (13.0-17.0) g/dL Hct 38.2 L (39.6-50.0) % MCHC 31.7 L (32.0-37.0) g/dL RDW 15.1 H (11.5-14.5) % Plt Count 487 H (140-440) X 10*3/uL Plt Count Comment INCREASED A Immature Gran # 0.27 H (0.00-0.04) X 10*3/uL Neutrophils # 22.11 H (1.80-7.70) X 10*3/uL Monocytes # 1.45 H (0.20-1.00) X 10*3/uL Carbon Dioxide 19.3 L (20.0-27.5) mmol/L BUN 7.7 L (9.0-27.0) mg/dL Microbiology - Last 24 Hours (Table) 04/24/21 13:00 Wound Culture - Preliminary Abdomen 04/23/21 18:14 Blood Culture - Preliminary Blood No Growth after 24 hours 04/23/21 17:19 Gram Stain - Preliminary Abdomen Wound Culture - Preliminary Gram Neg Bacilli Group D Enterococcus
--- NOTE | 2021-04-25 15:33 | P.PN ---
Subjective Progress Note Date: 04/25/21 CHIEF COMPLAINT: Small bowel obstruction HISTORY OF PRESENT ILLNESS: Patient is status post exploratory laparotomy, lysis of adhesions, small bowel resection, repair of incisional hernia and removal of abdominal wall prosthetic material for small bowel obstruction, incisional hernia and adhesions. Postop day #8. Patient's abdominal pain is controlled. He does have a cough. Afebrile. WBC is down from 26.81-20.2. Potassium 3.1 and being replaced. Patient did have a bowel movement today. Patient seen and examined with Dr. cannon PHYSICAL EXAM: VITAL SIGNS: Reviewed. GENERAL: Well-developed in no acute distress. HEENT: No sclera icterus. Extraocular movements grossly intact. Moist buccal mucosa. Head is atraumatic, normocephalic. ABDOMEN: Soft. Distended. Incision site has 2 areas that are now open after staple removal. There is some purulent serosanguineous drainage noted on dressing. NEUROLOGIC: Alert and oriented. Cranial nerves II through XII grossly intact. ASSESSMENT: 1. Status post exploratory laparotomy, lysis of adhesions, small bowel resection, repair of incisional hernia and removal of abdominal wall prosthetic material for small bowel obstruction, incisional hernia and adhesions 2. Abdominal incision infection PLAN: -Continue full liquids -Chest x-ray ordered for cough -Continue local wound care. Aquacel silver dressing to the open areas of his incision. -Continue antibiotics -Continue pain medication as needed -Continue supportive care -Encouraged patient to ambulate in hallways -Encouraged patient to use incentive spirometer -GI prophylaxis Protonix and DVT prophylaxis Lovenox Physician Pantograph Ii Engraver note has been reviewed by physician. Signing provider agrees with the documented findings, assessment, and plan of care. Objective - Vital Signs Vital signs: Vital Signs Temp 98.1 F 04/25/21 08:00 Pulse 88 04/25/21 11:50 Resp 18 04/25/21 11:50 BP 132/74 04/25/21 08:00 Pulse Ox 93 L 04/25/21 08:15 Intake & Output 04/24/21 04/25/21 04/25/21 18:59 06:59 18:59 Weight 99.79 kg Other: Voiding Method Toilet Toilet # Voids 4 2 # Bowel Movements 1 1 - Labs CBC & Chem 7: 04/25/21 10:28 04/25/21 10:28 Labs: Abnormal Lab Results - Last 24 Hours (Table) 04/25/21 04/25/21 Range/Units 10:28 10:28 WBC 20.2 H (3.8-10.6) k/uL RBC 3.79 L (4.30-5.90) m/uL Hgb 11.9 L (13.0-17.5) gm/dL Hct 36.4 L (39.0-53.0) % Plt Count 520 H (150-450) k/uL Neutrophils # 15.9 H (1.3-7.7) k/uL Monocytes # 1.4 H (0-1.0) k/uL Sodium 135 L (137-145) mmol/L Potassium 3.1 L (3.5-5.1) mmol/L BUN 6 L (9-20) mg/dL Microbiology - Last 24 Hours (Table) 04/24/21 13:00 Gram Stain - Preliminary Abdomen Wound Culture - Preliminary 04/23/21 18:14 Blood Culture - Preliminary Blood No Growth after 24 hours 04/23/21 17:19 Gram Stain - Preliminary Abdomen Wound Culture - Preliminary Gram Neg Bacilli Group D Enterococcus
--- NOTE | 2021-04-25 17:53 | XR ---
EXAMINATION TYPE: XR chest 2V DATE OF EXAM: 04/25/2021 5:43 PM COMPARISON:Chest radiographs from CT abdomen pelvis 04/15/2021 TECHNIQUE: XR chest 2V Frontal and lateral views of the chest. CLINICAL INDICATION:Male, 60 years old with history of cough; FINDINGS: Lungs/Pleura: There is no evidence of pleural effusion, focal consolidation, or pneumothorax. Epicar dial fat projects over the inferior lungs most pronounced on the right. Pulmonary vascularity: Unremarkable. Heart/mediastinum: Cardiomediastinal silhouette is unremarkable. Musculoskeletal: No acute osseous pathology. There is fixation hardware in the lower cervical spine. IMPRESSION: No acute cardiopulmonary disease/process.
[2021-04-25] MEDS: VANCOMYCIN 1,750 MG in SODIUM CHLORIDE 0.9% 500 ML 500 ML IVPB SCH (18:41)
[2021-04-25] MEDS: MIRTAZAPINE 15 MG TAB PO SCH (21:30)
[2021-04-25] MEDS: AMITRIPTYLINE HCL 10 MG TAB PO SCH (21:30)
[2021-04-25] MEDS: MELATONIN 3 MG TABLET PO SCH (21:49)
--- NOTE | 2021-04-25 22:23 | P.PN ---
Subjective Progress Note Date: 04/24/21 Principal diagnosis: Leukocytosis/abdominal source Patient is a 60 year male presenting to the hospital on 04/15/2021 for abdominal pain has been diagnosed with the high-grade mechanical obstruction status post laparotomy on 04/17/2021 lysis of adhesions and repair of incisional hernia, patient subsequently seemed to have a problem with abdominal incision dehiscence and elevated white count. On today's evaluation and that is 04/24/2021, the patient denies having any fever or any chills, she is accompanied, distention and pain and did have drainage from the middle part of the incision or chest pain shortness of breath or cough no abdominal pain did have some diarrhea Objective - Vital Signs Vital signs: Vital Signs Temp 98.7 F 04/24/21 02:00 Pulse 88 04/24/21 07:51 Resp 18 04/24/21 02:00 BP 105/66 04/24/21 02:00 Pulse Ox 92 L 04/24/21 02:00 Intake & Output 04/23/21 04/24/21 04/24/21 18:59 06:59 18:59 Output Total 550 Balance -550 Output: Urine 550 Other: Voiding Method Toilet Toilet # Voids 4 4 # Bowel Movements 2 1 - Exam GENERAL DESCRIPTION: Middle-aged male lying in bed in no distress RESPIRATORY SYSTEM: Unlabored breathing , decreased breath sounds at bases HEART: S1 S2 regular rate and rhythm , ABDOMEN: Soft , distention with the midline incision middle part with some navya inage EXTREMITIES: No edema feet - Labs CBC & Chem 7: 04/25/21 10:28 04/25/21 10:28 Labs: Abnormal Lab Results - Last 24 Hours (Table) 04/24/21 04/24/21 Range/Units 04:39 04:39 WBC 26.81 H (4.50-10.00) X 10*3/uL RBC 4.15 L (4.40-5.60) X 10*6/uL Hgb 12.1 L (13.0-17.0) g/dL Hct 38.2 L (39.6-50.0) % MCHC 31.7 L (32.0-37.0) g/dL RDW 15.1 H (11.5-14.5) % Plt Count 487 H (140-440) X 10*3/uL Carbon Dioxide 19.3 L (20.0-27.5) mmol/L BUN 7.7 L (9.0-27.0) mg/dL Microbiology - Last 24 Hours (Table) 04/23/21 17:19 Gram Stain - Preliminary Abdomen Wound Culture - Preliminary 04/23/21 17:19 Anaerobic Culture - Preliminary Abdomen Assessment and Plan (1) Leukocytosis Current Visit: Yes Status: Acute Code(s): D72.829 - ELEVATED WHITE BLOOD CELL COUNT, UNSPECIFIED SNOMED Code(s): 021150146 Plan: 1patient with significant leukocytosis more likely abdominal source in this patient admitted to the hospital with mechanical small bowel obstruction status post laparotomy lysis of hydration and resection of portion of small bowel surgery was completed on 04/17/2021 now noticed to have some drainage from the middle part of the incision with concern for possible leak. Wound culture has been obtained which are currently pending, patient will benefit from CT abdomin al pelvis to make sure no evidence of any intra-abdominal abscess. Patient to continue with cefepime and Flagyl Time with Patient: Less than 30
--- NOTE | 2021-04-25 22:25 | P.PN ---
Subjective Progress Note Date: 04/25/21 Principal diagnosis: Leukocytosis/abdominal source Patient is a 60 year male presenting to the hospital on 04/15/2021 for abdominal pain has been diagnosed with the high-grade mechanical obstruction status post laparotomy on 04/17/2021 lysis of adhesions and repair of incisional hernia, patient subsequently seemed to have a problem with abdominal incision dehiscence and elevated white count. On today's evaluation and that is 04/25/2021, the patient is afebrile, the patient is still complaining of abdominal distention and pain and did have drainage from the middle part of the incision, the patient denies chest pain shortness of breath or cough no abdominal pain did have some diarrhea Objective - Vital Signs Vital signs: Vital Signs Temp 98.2 F 04/25/21 14:00 Pulse 82 04/25/21 19:58 Resp 18 04/25/21 14:00 BP 114/68 04/25/21 14:00 Pulse Ox 95 04/25/21 14:00 Intake & Output 04/25/21 04/25/21 04/26/21 06:59 18:59 06:59 Intake Total 1080 Balance 1080 Intake: Oral 1080 Other: Voiding Method Toilet # Voids 2 3 # Bowel Movements 1 - Exam GENERAL DESCRIPTION: Middle-aged male lying in bed in no distress RESPIRATORY SYSTEM: Unlabored breathing , decreased breath sounds at bases HEART: S1 S2 regular rate and rhythm , ABDOMEN: Soft , distention with the midline incision middle part with some drainage EXTREMITIES: No edema feet - Labs CBC & Chem 7: 04/25/21 10:28 04/25/21 10:28 Labs: Abnormal Lab Results - Last 24 Hours (Table) 04/25/21 04/25/21 Range/Units 10:28 10:28 WBC 20.2 H (3.8-10.6) k/uL RBC 3.79 L (4.30-5.90) m/uL Hgb 11.9 L (13.0-17.5) gm/dL Hct 36.4 L (39.0-53.0) % Plt Count 520 H (150-450) k/uL Neutrophils # 15.9 H (1.3-7.7) k/uL Monocytes # 1.4 H (0-1.0) k/uL Sodium 135 L (137-145) mmol/L Potassium 3.1 L (3.5-5.1) mmol/L BUN 6 L (9-20) mg/dL Microbiology - Last 24 Hours (Table) 04/23/21 18:14 Blood Culture - Preliminary Blood No Growth after 48 hours 04/24/21 13:00 Gram Stain - Preliminary Abdomen Wound Culture - Preliminary 04/23/21 17:19 Gram Stain - Preliminary Abdomen Wound Culture - Preliminary Gram Neg Bacilli Group D Enterococcus Assessment and Plan (1) Leukocytosis Current Visit: Yes Status: Acute Code(s): D72.829 - ELEVATED WHITE BLOOD MARY LOU L COUNT, UNSPECIFIED SNOMED Code(s): 376273957 Plan: 1patient with significant leukocytosis more likely abdominal source in this patient admitted to the hospital with mechanical small bowel obstruction status post laparotomy lysis of hydration and resection of portion of small bowel surgery was completed on 04/17/2021 now noticed to have some drainage from the middle part of the incision with concern for possible leak. Wound culture are g rowing gram-negative and enterococcus patient is covered with cefepime and Flagyl and vancomycin will be related on waiting for sensitivities, will benefit from CT abdominal pelvis this was discussed again with the surgical team Time with Patient: Less than 30
[2021-04-26] MEDS: VANCOMYCIN 1,750 MG in SODIUM CHLORIDE 0.9% 500 ML 500 ML IVPB SCH (01:57)
[2021-04-26] MEDS: HYDROcodone/APAP 5-325MG 1 EACH TAB PO PRN (02:05)
[2021-04-26 03:59] LABS: Basophils # (A) 0.1 k/uL (0-0.2); Basophils % (A) 1 %; Eosinophils # (A) 0.4 k/uL (0-0.7); Eosinophils % (A) 2 %; HCT 37.1 % (39.0-53.0); HGB 11.8 gm/dL (13.0-17.5); Lymphocytes # (A) 2.2 k/uL (1.0-4.8); Lymphocytes % (A) 11 %; MCH 30.6 pg (25.0-35.0); MCHC 31.9 g/dL (31.0-37.0); MCV 96.1 fL (80.0-100.0); Mean Platelet Volume 7.1; Monocytes # (A) 1.1 k/uL (0-1.0); Monocytes % (A) 6 %; Neutrophils # (A) 15.2 k/uL (1.3-7.7); Neutrophils % (A) 78 %; Platelet Count 530 k/uL (150-450); RBC 3.86 m/uL (4.30-5.90); RDW 14.4 % (11.5-15.5); WBC 19.4 k/uL (3.8-10.6)
[2021-04-26 04:08] LABS: African American GFR (CKD) >90 (>60 ml/min/1.73 sqM); Non-African American GFR(CKD) >90 (>60 ml/min/1.73 sqM)
[2021-04-26 04:09] LABS: African American GFR (CKD) >90 (>60 ml/min/1.73 sqM); Anion Gap 8 mmol/L; Blood Urea Nitrogen 4 mg/dL (9-20); Calcium 8.4 mg/dL (8.4-10.2); Carbon Dioxide 21 mmol/L (22-30); Chloride 105 mmol/L (98-107); Glucose 111 mg/dL (74-99); Non-African American GFR(CKD) >90 (>60 ml/min/1.73 sqM); Potassium 3.3 mmol/L (3.5-5.1); Sodium 134 mmol/L (137-145)
[2021-04-26] MEDS: LEVOTHYROXINE 50 MCG TAB PO SCH (04:32)
[2021-04-26] MEDS: CEFEPIME 2 GM in SODIUM CHLORIDE 0.9% 100 ML IVPB SCH ×4 (07:38→16:33)
[2021-04-26] MEDS ORDERED: POTASSIUM CHLORIDE ER 20 MEQ TAB.ER PO STA ×2 (08:00→08:45)
[2021-04-26] MEDS: metroNIDAZOLE 500 MG TAB PO SCH ×3 (09:53→20:55)
[2021-04-26] MEDS: LOSARTAN-HCTZ 50-12.5 MG 1 EACH TAB PO SCH (09:54)
[2021-04-26] MEDS: MULTIVITAMINS, THERA 1 EACH TAB PO SCH (09:54)
[2021-04-26] MEDS: ATORVASTATIN 20 MG TAB PO SCH (09:54)
[2021-04-26] MEDS: CLOPIDOGREL 75 MG TAB PO SCH (09:54)
[2021-04-26] MEDS: ASCORBIC ACID 500 MG TAB PO SCH (09:54)
[2021-04-26] MEDS: POTASSIUM CHLORIDE ER 10 MEQ TAB.ER.PRT PO SCH (09:55)
[2021-04-26] MEDS: FLUTICASONE 50MCG/SPRAY NASAL 16GM EA NOSTRIL SCH (09:55)
[2021-04-26] MEDS: ENOXAPARIN 40 MG/0.4 ML SYRINGE SQ SCH (09:55)
[2021-04-26] MEDS: [UNRECOGNIZED DRUG - OTHER] PO SCH (09:56)
[2021-04-26] MEDS: NICOTINE 21MG/24HR PATCH TRANSDERM SCH (09:56)
[2021-04-26] MEDS: PANTOPRAZOLE 40 MG/10 ML VIAL IV SCH (09:56)
[2021-04-26] MEDS: SYMBICORT 160-4.5 MCG INHALER INHALATION SCH ×2 (10:21→21:36)
[2021-04-26] MEDS: IPRATROPIUM-ALBUTEROL 3 ML NEB INHALATION SCH ×5 (10:22→21:36)
[2021-04-26] MEDS: IOPAMIDOL CONTRAST (ORAL USE) VIAL PO PRN ×2 (12:55→14:23)
--- NOTE | 2021-04-26 14:12 | P.PN ---
Subjective Progress Note Date: 04/26/21 04/19/2021 This is a 60-year-old male who was recently admitted under surgical services for acute small bowel obstruction and underwent exploratory laparotomy, lysis of adhesions and small bowel resection with repair of incisional hernia and removal of abdominal wall prosthetic with Dr. Elizabeth. Patient continues on ice chips only and continues with NG tube and is requesting if it can be removed. Patient reports the passing gas and denies any increasing abdominal pain. Patient states his discomfort is with the NG tube. Patient denies chest pain, shortness of breath, or palpitations. Patient is afebrile. Patient continues on gentle IV hydration 04/20/2021 Patient is seen today and having some nausea with one episode of vomiting. NG tube removed yesterday and maintain on clear liquids. Patient denies passing gas and no bowel movement as of yet. General surgery following. Encouraged increase activity as tolerated. Encouraged incentive spirometer use at least 10 times per hour while awake. Patient is afebrile. WBC trending down. Patient continues on 3L via NC and states he does not wear oxygen at home. Wean FI02 as tolerated. 04/21/2021 Patient is seen this morning and resting although easily arousable. Patient is continued on clear liquids and tolerating with no further episodes of nausea or vomiting. Patient is passing gas and having multiple episodes of loose stool and will obtain cdiff and possible imodium although recommend discussing with primary team prior to starting that. WBC elevated of 15 and being started on cefazolin. Some mild drainage noted of the lower surgical site and some jerzy to be removed today. 04/23/2021 Vital signs are reviewed temperature 98.0, pulse 77, blood pressure 115/66 Patient is seen and evaluated sitting up in bedside chair; denies any worsening abdominal pain Labs revealed worsening WBC count of 20.7; CRP of 18.4 but pro-calcitonin remains low at 0.2 Patient is currently on IV Ancef; we will discontinue and start patient on IV cefepime; we'll consult ID for further recommendations 04/24/2021 Patient is seen and evaluated and follow-up currently undergoing abdominal incision dressing change and is noted to have increased purulent drainage noted and is maintained on IV cefepime with infectious disease following. White blood count continues to be elevated and is currently 26.81 today. BMP within normal limits. CRP yesterday was 18.4 and pro-calcitonin 0.22. C. diff was negative. Patient continues on full liquid diet and discussed the surgery about possible CT abdomen for further evaluation. Patient is afebrile. Patient denies any chest pain or shortness of breath. Patient encouraged to increase activity as tolerated. Recommend continue with incentive spirometer at least 10 times every hour while awake. 04/25/2021 Patient is seen in follow-up this morning currently sitting up in bed and states his abdominal pain is somewhat improved. Patient's abdomen continues to be distended although patient states this is his baseline and does not feel he is distended. Patient continues with drainage noted at the surgical site and awaiting dressing change. Patient continues on IV antibiotics in the form of cefepime and vancomycin and preliminary culture showing gram-negative bacilli along with group D enterococcus and infectious disease is following closely. Patient states he was up and walking yesterday and today. Patient denies any shortness of breath or chest pain patient is currently on room air and has been intimately using 2-3 L via nasal cannula. Patient does have history of COPD and has breathing inhalational treatments and will continue. Potassium slightly low at 3.1 and will replace and repeat labs. White blood count trending down and is currently 20.2. Patient is afebrile. 04/26/2021 Patient is seen in follow-up today and currently sitting up at the side of the bed and continues with abdominal binder noted. Per nursing staff surgical dressings were changed multiple times throughout the night due to drainage and bleeding noted. Patient is continued on IV antibiotics in the form of cefepime, Flagyl, and now daptomycin with infectious disease following closely. Repeat preliminary culture showing gram-negative bacilli along with group D enterococcus and most recent wound cultures finalized showing E. coli with enterococcus VRE noted. Patient denies any worsening abdominal pain and is tolerating diet with reports of gas and stooling noted. Patient denies any nausea or vomiting. Patient denies chest pain or shortness of breath. Patient was anticipating going home although awaiting finalized cultures to determine discharge antibiotics and possible requiring IV antibiotic therapy on discharge. Repeat CT abdomen and pelvis ordered and pending. Review of systems: Constitutional: No reports of fatigue, fever, or chills Cardiovascular: No reports of chest pain or palpitations Respiratory: No reports of shortness of breath or cough GI: No reports of nausea, no reports of of vomiting, patient is passing gas and having bowel movements, reports improved abdominal discomfort today : No reports of dysuria or retention Neurovascular: No reports of weakness or numbness All medications have been reviewed Active Medications Hydrocodone Bitart/Acetaminophen (Hydrocodone/Apap 5-325mg 1 Each Tab) 1 each PO Q4HR PRN PRN Reason: moderate Pain Last Admin: 04/26/21 02:05 Dose: 1 each Documented by: Albuterol Sulfate (Albuterol Nebulized 2.5 Mg/3 Ml) 2.5 mg INHALATION RT-Q6H PRN PRN Reason: Shortness Of Breath Last Admin: 04/21/21 17:34 Dose: 2.5 mg Documented by: Albuterol/Ipratropium (Ipratropium-Albuterol 3 Ml Neb) 3 ml INHALATION RT-QID [facility] Last Admin: 04/26/21 11:24 Dose: 3 ml Documented by: Amitriptyline HCl (Amitriptyline Hcl 10 Mg Tab) 40 mg PO HS [facility] Last Admin: 04/25/21 21:30 Dose: 40 mg Documented by: Ascorbic Acid (Ascorbic Acid 500 Mg Tab) 1,000 mg PO DAILY [facility] Last Admin: 04/26/21 09:54 Dose: 1,000 mg Documented by: Atorvastatin Calcium (Atorvastatin 20 Mg Tab) 20 mg PO DAILY [facility] Last Admin: 04/26/21 09:54 Dose: 20 mg Documented by: Budesonide/Formoterol Fumarate (Symbicort 160-4.5 Mcg Inhaler) 2 puff INHALATION RT-BID [facility] Last Admin: 04/26/21 10:21 Dose: Not Given Documented by: Clopidogrel Bisulfate (Clopidogrel 75 Mg Tab) 75 mg PO DAILY [facility] Last Admin: 04/26/21 09:54 Dose: 75 mg Documented by: Enoxaparin Sodium (Enoxaparin 40 Mg/0.4 Ml Syringe) 40 mg SQ DAILY [facility] Last Admin: 04/26/21 09:55 Dose: 40 mg Documented by: Fluticasone Propionate (Fluticasone 50mcg/Desha Nasal 16gm) 1 spray EA NOSTRIL DAILY [facility] Last Admin: 04/26/21 09:55 Dose: 1 spray Documented by: HCTZ/Losartan Potassium (Losartan-Hctz 50-12.5 Mg 1 Each Tab) 1 each PO DAILY [facility] Last Admin: 04/26/21 09:54 Dose: 1 each Documented by: Hydromorphone HCl (Hydromorphone 1 Mg/Ml 1 Ml Syringe) 0.5 mg IVP Q3HR PRN PRN Reason: Moderate Pain Last Admin: 04/17/21 19:54 Dose: 0.5 mg Documented by: Hydromorphone HCl (Hydromorphone 1 Mg/Ml 1 Ml Syringe) 1 mg IVP Q3HR PRN PRN Reason: Severe Pain Last Admin: 04/24/21 15:00 Dose: 1 mg Documented by: Sodium Chloride (Saline 0.9%) 1,000 mls @ 50 mls/hr IV .Q20H [facility] Last Admin: 04/25/21 13:28 Dose: Not Given Documented by: Cefepime HCl 2 gm/ Sodium (Chloride) 100 mls @ 25 mls/hr IVPB Q8HR [facility] Last Admin: 04/26/21 07:38 Dose: 25 mls/hr Documented by: Daptomycin 600 mg/ Sodium (Chloride) 50 mls @ 100 mls/hr IVPB DAILY [facility] Last Admin: 04/26/21 10:55 Dose: 100 mls/hr Documented by: Iopamidol (Iopamidol Contrast (Oral Use) Vial) 30 ml PO Q60M PRN PRN Reason: CT Scan Stop: 04/27/21 12:10 Last Admin: 04/26/21 12:55 Dose: 30 ml Documented by: Levothyroxine Sodium (Levothyroxine 50 Mcg Tab) 50 mcg PO DAILY@0630 [facility] Last Admin: 04/26/21 04:32 Dose: 50 mcg Documented by: Melatonin (Melatonin 3 Mg Tablet) 6 mg PO [facility] Last Admin: 04/25/21 21:49 Dose: 6 mg Documented by: Metoclopramide HCl (Metoclopramide 5 Mg/Ml 2 Ml Vial) 10 mg IVP Q6HR PRN PRN Reason: Nausea And Vomiting Last Admin: 04/24/21 16:58 Dose: 10 mg Documented by: Metronidazole (Metronidazole 500 Mg Tab) 500 mg PO TID [facility] Last Admin: 04/26/21 09:53 Dose: 500 mg Documented by: Mirtazapine (Mirtazapine 15 Mg Tab) 30 mg PO [facility] Last Admin: 04/25/21 21:30 Dose: 30 mg Documented by: Miscellaneous Information (Potassium Replacement Protocol 1 Each Misc) 1 each MISCELLANE DAILY PRN; Protocol PRN Reason: Per Protocol Multivitamins (Multivitamins, Thera 1 Each Tab) 1 each PO DAILY [facility] Last Admin: 04/26/21 09:54 Dose: 1 each Documented by: Naloxone HCl (Naloxone 0.4 Mg/Ml 1 Ml Vial) 0.2 mg IV Q2M PRN PRN Reason: Opioid Reversal Nicotine (Nicotine 21mg/24hr Patch) 1 patch TRANSDERM DAILY [facility] Last Admin: 04/26/21 09:56 Dose: 1 patch Documented by: Non-Formulary Medication (Elviteg/Donna/Emtric/Tenofo Dis [Stribild Tablet]) 1 tab PO DAILY [facility] Last Admin: 04/26/21 09:56 Dose: 1 tab Documented by: Ondansetron HCl (Ondansetron 4 Mg/2 Ml Vial) 4 mg IVP Q6HR PRN PRN Reason: Nausea And Vomiting Last Admin: 04/24/21 08:28 Dose: 4 mg Documented by: Pantoprazole Sodium (Pantoprazole 40 Mg/10 Ml Vial) 40 mg IV DAILY [facility] Last Admin: 04/26/21 09:56 Dose: 40 mg Documented by: Potassium Chloride (Potassium Chloride Er 10 Meq Tab.Er.Prt) 10 meq PO DAILY [facility] Last Admin: 04/26/21 09:55 Dose: 10 meq Documented by: PHYSICAL EXAMINATION: GENERAL: The patient is alert and oriented x4, Well developed, well nourished. HEENT: Pupils are round and equally reacting to light. EOMI. does have scleral icterus. No conjunctival pallor. Normocephalic, atraumatic. No pharyngeal erythema. No thyromegaly. CARDIOVASCULAR: S1 and S2 muffled PULMONARY: diminished breath sounds bilaterally with Few scattered rhonchi noted. ABDOMEN: soft. Tender on exam. obese. mildly-distended, normoactive bowel sounds. No palpable organomegaly. Surgical dressing being changed later today and currently has abdominal binder noted MUSCULOSKELETAL: No joint swelling or deformity. EXTREMITIES: No cyanosis, clubbing, or pedal edema. NEUROLOGICAL: Gross neurological examination did not reveal any focal deficits. SKIN: No rashes. Assessment: Acute small bowel obstruction, status post exploratory laparotomy, lysis of adhesions, small bowel resection Abdominal incision infection with purulent drainage noted, cultures growing E. coli and enterococcus faecium VRE Chronic obstructive pulmonary disease Mild hypokalemia, 3.3 and replacing leukocytosis, trending down hypertension GI prophylaxis DVT prophylaxis Full code with no intubation Plan: Recommend to continue with gentle IV hydration and patient is maintained on full liquid diet. Patient is reporting to less frequent loose stools. Patient is maintained on IV cefepime along with To mycin and oral Flagyl and infectious disease following for possible abdominal incision infection as there is noted purulent drainage at the surgical site. awaiting finalized cultures. Patient may likely require IV antibiotic therapy on discharge in case management following and verifying coverage. Encouraged incentive spirometer use at least 10 times every hour while awake and increase activity as tolerated. Patient does have duonebs ordered scheduled and as needed. Patient is afebrile. White blood count trending down and recommend repeat labs in the morning. CT abdomen and pelvis is ordered and pending at this time. Will continue to follow along with surgery during hospitalization. Prognosis is guarded. The impression and plan of care has been dictated by Marzena Moore, nurse practitioner as directed. I, Dr. Gerard MD I have performed a history and examination and MDM of this patient, discussed the same with the dictator, and agree with the dictator's assessment and plan as written ,documented as a scribe. Based on total visit time, I have performed more than 50% of the visit. Any additional findings or plans will be noted. Objective - Vital Signs Vital signs: Vital Signs Temp 97.4 F L 04/26/21 08:00 Pulse 75 04/26/21 08:00 Resp 16 04/26/21 08:00 BP 130/70 04/26/21 08:00 Pulse Ox 95 04/26/21 08:00 Intake & Output 04/25/21 04/26/21 04/26/21 18:59 06:59 18:59 Intake Total 1080 Output Total 2400 Balance 1080 -2400 Intake: Oral 1080 Output: Urine 2400 Other: Voiding Method Toilet # Voids 3 # Bowel Movements 0 - Labs CBC & Chem 7: 04/26/21 03:22 04/26/21 03:22 Labs: Abnormal Lab Results - Last 24 Hours (Table) 04/25/21 04/25/21 04/26/21 Range/Units 10:28 10:28 03:22 WBC 20.2 H 19.4 H (3.8-10.6) k/uL RBC 3.79 L 3.86 L (4.30-5.90) m/uL Hgb 11.9 L 11.8 L (13.0-17.5) gm/dL Hct 36.4 L 37.1 L (39.0-53.0) % Plt Count 520 H 530 H (150-450) k/uL Neutrophils # 15.9 H 15.2 H (1.3-7.7) k/uL Monocytes # 1.4 H 1.1 H (0-1.0) k/uL Sodium 135 L (137-145) mmol/L Potassium 3.1 L (3.5-5.1) mmol/L Carbon Dioxide (22-30) mmol/L BUN 6 L (9-20) mg/dL Glucose (74-99) mg/dL 04/26/21 Range/Units 03:22 WBC (3.8-10.6) k/uL RBC (4.30-5.90) m/uL Hgb (13.0-17.5) gm/dL Hct (39.0-53.0) % Plt Count (150-450) k/uL Neutrophils # (1.3-7.7) k/uL Monocytes # (0-1.0) k/uL Sodium 134 L (137-145) mmol/L Potassium 3.3 L (3.5-5.1) mmol/L Carbon Dioxide 21 L (22-30) mmol/L BUN 4 L (9-20) mg/dL Glucose 111 H (74-99) mg/dL Microbiology - Last 24 Hours (Table) 04/23/21 17:19 Gram Stain - Final Abdomen Wound Culture - Final Escherichia coli Enterococcus faecium VRE 04/24/21 13:00 Gram Stain - Preliminary Abdomen Wound Culture - Preliminary Gram Neg Bacilli Group D Enterococcus 04/23/21 18:14 Blood Culture - Preliminary Blood No Growth after 48 hours
--- NOTE | 2021-04-26 14:41 | P.PN ---
Subjective Progress Note Date: 04/26/21 CHIEF COMPLAINT: Small bowel obstruction HISTORY OF PRESENT ILLNESS: Patient is status post exploratory laparotomy, lysis of adhesions, small bowel resection, repair of incisional hernia and removal of abdominal wall prosthetic material for small bowel obstruction, incisional hernia and adhesions. Postop day #9. Patient's abdominal pain is controlled. He has been having bowel movements. Denies any nausea vomiting. Tolerating his full liquids. Afebrile. WBC is down from 20.2-19.4 hemoglobin 11.8 platelets 530 potassium is 3.3 and being replaced wound culture growing VRE. Chest x-ray no acute cardiopulmonary process Patient seen and examined with Dr. cannon PHYSICAL EXAM: VITAL SIGNS: Reviewed. GENERAL: Well-developed in no acute distress. HEENT: No sclera icterus. Extraocular movements grossly intact. Moist buccal mucosa. Head is atraumatic, normocephalic. ABDOMEN: Soft. Distended. Incision site has 2 areas that are now open after staple removal. There is some purulent serosanguineous drainage noted on dressing. NEUROLOGIC: Alert and oriented. Cranial nerves II through XII grossly intact. ASSESSMENT: 1. Status post exploratory laparotomy, lysis of adhesions, small bowel resection, repair of incisional hernia and removal of abdominal wall prosthetic material for small bowel obstruction, incisional hernia and adhesions 2. Abdominal incision infection 3. Hypokalemia 4. Leukocytosis PLAN: -Discussed case with medicine service and infectious disease. Computed tomography scan of the abdomen and pelvis ordered to rule out any deep tissue infection. -Continue local wound care. -Continue antibiotics per ID -Continue pain medication as needed -Continue supportive care -Encouraged patient to ambulate in hallways -Encouraged patient to use incentive spirometer -GI prophylaxis Protonix and DVT prophylaxis Lovenox Physician Steam Finisher note has been reviewed by physician. Signing provider agrees with the documented findings, assessment, and plan of care. Objective - Vital Signs Vital signs: Vital Signs Temp 97.4 F L 04/26/21 08:00 Pulse 82 04/26/21 11:33 Resp 18 04/26/21 11:33 BP 130/70 04/26/21 08:00 Pulse Ox 95 04/26/21 08:00 Intake & Output 04/25/21 04/26/21 04/26/21 18:59 06:59 18:59 Intake Total 1080 Output Total 2400 Balance 1080 -2400 Intake: Oral 1080 Output: Urine 2400 Other: Voiding Method Toilet Toilet # Voids 3 # Bowel Movements 0 - Labs CBC & Chem 7: 04/26/21 03:22 04/26/21 03:22 Labs: Abnormal Lab Results - Last 24 Hours (Table) 04/26/21 04/26/21 Range/Units 03:22 03:22 WBC 19.4 H (3.8-10.6) k/uL RBC 3.86 L (4.30-5.90) m/uL Hgb 11.8 L (13.0-17.5) gm/dL Hct 37.1 L (39.0-53.0) % Plt Count 530 H (150-450) k/uL Neutrophils # 15.2 H (1.3-7.7) k/uL Monocytes # 1.1 H (0-1.0) k/uL Sodium 134 L (137-145) mmol/L Potassium 3.3 L (3.5-5.1) mmol/L Carbon Dioxide 21 L (22-30) mmol/L BUN 4 L (9-20) mg/dL Glucose 111 H (74-99) mg/dL Microbiology - Last 24 Hours (Table) 04/23/21 17:19 Gram Stain - Final Abdomen Wound Culture - Final Escherichia coli Enterococcus faecium VRE 04/24/21 13:00 Gram Stain - Preliminary Abdomen Wound Culture - Preliminary Gram Neg Bacilli Group D Enterococcus 04/23/21 18:14 Blood Culture - Preliminary Blood No Growth after 48 hours
[2021-04-26] MEDS: SODIUM CHLORIDE 0.9% 1,000 ML IV SCH (16:33)
--- NOTE | 2021-04-26 17:27 | CT ---
EXAMINATION TYPE: CT abdomen pelvis w con DATE OF EXAM: 04/26/2021 COMPARISON: CT dated 04/15/2021 HISTORY: Abdominal distention. CT DLP: 1765.1 mGycm Automated exposure control for dose reduction was used. TECHNIQUE: Helical acquisition of images was performed from the lung bases through the pelvis. CONTRAST: Performed with Oral Contrast and with IV Contrast, patient injected with 100 mL of Isovue 300. FINDINGS: Interval abdominal surgery with anterior abdominal wall midline incision, surgical clips and small de hiscence. Small bowel anastomosis is seen in the left lower quadrant. Unremarkable stomach and duoden um. Dilated small bowel loops mainly the jejunal loops measuring up to 6.2 cm in the right lower quad rant with a gradual reduction in the diameter of the small bowel down to the small bowel anastomosis in the left lower quadrant. Distal to the anastomosis, the small bowel demonstrates normal caliber down to the ileocecal junction . The oral contrast can be seen passing into the cecum. Element of superior mesenteric vascular twist ing seen in the mid abdomen, more prominent compared to the previous recent CT scan. Fluid filled col on and rectum. Normal appendix. No evidence of pneumatosis, free peritoneal air or portal venous gas. No definite hepatic focal lesion. Unremarkable gallbladder, pancreas, adrenals and kidneys. Small spl een. Scattered arterial atherosclerotic calcifications. Unremarkable urinary bladder, prostate and se viry vesicles. No progressive lymphadenopathy. Minimal free pelvic fluid. Right lower lung lobe posterior consolidation with air bronchograms within, with small right pleural effusion. Underlying pulmonary infection can't be excluded, please correlate clinically. Coronary art erial calcifications. Left lower old healed rib fractures. No aggressive bone lesion. IMPRESSION: Interval surgery as described above. Persistent marked dilatation of the small bowel loops measuring up to 6.2 cm with a gradual tapering down to the small bowel anastomosis as described above. Distal t o the anastomosis, normal-caliber small bowel is appreciated with passage of the contrast down to the cecum. Element of twisting of the superior mesenteric vessels, slightly more prominent compared to t he previous CT scan. The overall picture could be related to ileus however associated element of mechanical obstruction ca n't be excluded. Recommend clinical correlation and clinical follow-up. No free peritoneal air, eric l venous gas or pneumatosis. Other incidental findings as described above.
[2021-04-26] MEDS: MIRTAZAPINE 15 MG TAB PO SCH (20:55)
[2021-04-26] MEDS: MELATONIN 3 MG TABLET PO SCH (20:55)
[2021-04-26] MEDS: AMITRIPTYLINE HCL 10 MG TAB PO SCH (20:56)
[2021-04-26] MEDS ORDERED: BENZOCAINE/MENTHOL LOZENG 1 EACH LOZENGE MUCOUS MEM PRN (21:08)
[2021-04-27] MEDS: CEFEPIME 2 GM in SODIUM CHLORIDE 0.9% 100 ML IVPB SCH ×4 (00:30→23:28)
[2021-04-27] MEDS: SODIUM CHLORIDE 0.9% 1,000 ML IV SCH (04:42)
[2021-04-27] MEDS: LEVOTHYROXINE 50 MCG TAB PO SCH (05:50)
[2021-04-27 06:40] LABS: African American GFR (CKD) >90 (>60 ml/min/1.73 sqM); Non-African American GFR(CKD) >90 (>60 ml/min/1.73 sqM)
[2021-04-27] MEDS: metroNIDAZOLE 500 MG TAB PO SCH ×3 (07:25→20:22)
[2021-04-27] MEDS: ATORVASTATIN 20 MG TAB PO SCH (07:25)
[2021-04-27] MEDS: ASCORBIC ACID 500 MG TAB PO SCH (07:26)
[2021-04-27] MEDS: CLOPIDOGREL 75 MG TAB PO SCH (07:26)
[2021-04-27] MEDS: MULTIVITAMINS, THERA 1 EACH TAB PO SCH (07:26)
[2021-04-27] MEDS: POTASSIUM CHLORIDE ER 10 MEQ TAB.ER.PRT PO SCH (07:26)
[2021-04-27] MEDS: [UNRECOGNIZED DRUG - OTHER] PO SCH (07:28)
[2021-04-27] MEDS: PANTOPRAZOLE 40 MG/10 ML VIAL IV SCH (07:29)
[2021-04-27] MEDS: LOSARTAN-HCTZ 50-12.5 MG 1 EACH TAB PO SCH (07:29)
[2021-04-27] MEDS: ENOXAPARIN 40 MG/0.4 ML SYRINGE SQ SCH (07:29)
[2021-04-27] MEDS: FLUTICASONE 50MCG/SPRAY NASAL 16GM EA NOSTRIL SCH (07:29)
[2021-04-27] MEDS: NICOTINE 21MG/24HR PATCH TRANSDERM SCH (07:30)
[2021-04-27] MEDS: SYMBICORT 160-4.5 MCG INHALER INHALATION SCH ×2 (08:38→19:19)
[2021-04-27] MEDS: IPRATROPIUM-ALBUTEROL 3 ML NEB INHALATION SCH ×4 (08:38→19:19)
[2021-04-27 08:40] LABS: Basophils # (A) 0.1 k/uL (0-0.2); Basophils % (A) 0 %; Eosinophils # (A) 0.4 k/uL (0-0.7); Eosinophils % (A) 2 %; HCT 36.9 % (39.0-53.0); HGB 11.8 gm/dL (13.0-17.5); Lymphocytes # (A) 2.5 k/uL (1.0-4.8); Lymphocytes % (A) 14 %; MCH 30.8 pg (25.0-35.0); MCHC 32.1 g/dL (31.0-37.0); MCV 95.9 fL (80.0-100.0); Mean Platelet Volume 7.3; Monocytes # (A) 1.4 k/uL (0-1.0); Monocytes % (A) 8 %; Neutrophils # (A) 12.9 k/uL (1.3-7.7); Neutrophils % (A) 73 %; Platelet Count 612 k/uL (150-450); RBC 3.85 m/uL (4.30-5.90); RDW 14.4 % (11.5-15.5); WBC 17.6 k/uL (3.8-10.6)
[2021-04-27 09:30] LABS: Anion Gap 6 mmol/L; Blood Urea Nitrogen <2 mg/dL (9-20); Carbon Dioxide 25 mmol/L (22-30); Chloride 104 mmol/L (98-107); Glucose 106 mg/dL (74-99); Potassium 3.2 mmol/L (3.5-5.1); Sodium 135 mmol/L (137-145)
[2021-04-27 09:31] LABS: African American GFR (CKD) >90 (>60 ml/min/1.73 sqM); Calcium 8.6 mg/dL (8.4-10.2); Non-African American GFR(CKD) >90 (>60 ml/min/1.73 sqM)
[2021-04-27] MEDS ORDERED: Potassium Replacement Protocol 1 EACH MISC MISCELLANE PRN (10:02)
[2021-04-27] MEDS: POTASSIUM CHLORIDE ER 20 MEQ TAB.ER PO SCH ×2 (10:17→11:30)
--- NOTE | 2021-04-27 14:20 | CDI ---
Documentation Clarification Form Date: 04/27/2021 01:29:03 PM From: Alejandra Lieberman RN, CCDS Admit Date: 04/15/2021 04:42:00 PM Patient Name: Davian Kelly Visit Number: [id number] Discharge Date: ATTENTION: The Clinical Documentation Specialists (CDI) and [employer] Coding Staff appreciate your assistance in clarifying documentation. Please respond to the clarification below the line at the bottom and electronically sign. The CDI & [employer] Coding staff will review the response and follow-up if needed. Please note: Queries are made part of the Legal Health Record. If you have any questions, please contact the author of this message via ITS. Dr. Suraj Elizabeth Abdominal wall infection is noted in is documented 04/24/21 and patient had [insert procedure, date]. Additional clarification is requested regarding the relationship, if any, that exists between the diagnosis and the procedure. Patients Admitting Diagnosis: Small bowel obstruction Post-Operative Diagnosis: Same 04/17 Procedure performed: Exploratory Laparotomy, lysis of adhesions, small bowel resection, repair of incisional hernia and removal of abdominal wall prosthetic material 04/17 Operative Note: there was some sort of prosthetic material placed abdominal wall. This was removed piecemeal in the area of his previous hernia 04/25 ID: Leukocytosis. Wound culture are growing gram-negative and enterococcus patient covered with Cefepime, Flagyl and Vancomycion waiting for sensitivities. History/Risk Factors: COPD, HIV, Cellulitis Current smoker Clinical Indicators: 60-year-old male present on 04/15/21 for abdominal pain diagnosed with high-grade mechanical obstruction post laparotomy on 04/17/21. He subsequently seemed to have a problem with abdominal incision dehiscence and elevated white count 15-17, now WBC 20, 007 on 04/23/21.He had drainage from incision where the stiches were removed. He is complaining of abdominal distention and pain. Wound culture are growing gram-negative and group D enterococcus. Recent cultures finalized showing E. coli and enterococcus VRE noted. 04/25 114/68 82 18 98.2 04/26 CT Abdomen pelvis: persistent marked dilation of the small bowel loops measuring up to 6.2 with a gradual tapering down to the small bowel anastomosis. Overall picture could be related to ileus however associated element of mechanical obstruction can't be excluded. Treatment: Cefepime 2 GM IVPB Q 8 HRS 04/23- Local wound care. Aquacel silver dressing to the open areas of his incision Flagyl 500MG PO TID 04/23- Vancomycin HCL 1,750 MG IVPG Once then Q 8 HRS 04/25-04/25 (PTD) What relationship, if any, exists between the diagnosis of abdominal incision infection and the procedure? [ ] Abdominal incision infection is a complication of surgical procedure [ x] Abdominal incision infection is an expected outcome of the surgical procedure [ ] Abdominal incision infection is related to patients co-morbid condition(s) of [insert co-morbid dxs] & not a complication of the procedure [ ] Abdominal incision infection has been ruled out [ ] Other please specify ____ [ ] Unable to determine (Template Last Revised: May 2020) MTDD
--- NOTE | 2021-04-27 15:08 | P.PN ---
Subjective Progress Note Date: 04/27/21 CHIEF COMPLAINT: Small bowel obstruction HISTORY OF PRESENT ILLNESS: Patient is status post exploratory laparotomy, lysis of adhesions, small bowel resection, repair of incisional hernia and removal of abdominal wall prosthetic material for small bowel obstruction, incisional hernia and adhesions. Postop day #10. Patient's abdominal pain is controlled. Patient is actively having bowel movements and flatus. Denies any nausea or vomiting. Tolerating regular food. Computed tomography scan abdomen and pelvis persistent marked dilatation of small bowel loops measuring up to 6.2 cm with a gradual tapering down to small bowel anastomosis as described above. Distal to the anastomosis normal caliber small bowel is appreciated with passage of the contrast down to the cecum. Element of twisting of the superior mesenteric vessels, slightly more prominent compared to previous computed tomography scan. Overall picture could be related to ileus however associated element of mechanical traction cannot be excluded. The computed tomography scan findings were reviewed with Dr. cannon. Doubt bowel obstruction since patient is having active bowel movements. No evidence of abscess on CAT scan. Anticipating oral antibiotics at discharge. Afebrile. White count continues to trend downward from 19.4-17.6 potassium is 3.2 and is being replaced Patient seen and examined with Dr. cannon PHYSICAL EXAM: VITAL SIGNS: Reviewed. GENERAL: Well-developed in no acute distress. HEENT: No sclera icterus. Extraocular movements grossly intact. Moist buccal mucosa. Head is atraumatic, normocephalic. ABDOMEN: Soft. Distended. The patient reports that this is his normal belly size. Patient's abdominal incision has now opened further. There is granulation tissue. Serous drainage from the Aquasol dressing. No erythema noted around the incision edges. NEUROLOGIC: Alert and oriented. Cranial nerves II through XII grossly intact. ASSESSMENT: 1. Status post exploratory laparotomy, lysis of adhesions, small bowel resection, repair of incisional hernia and removal of abdominal wall prosthetic material for small bowel obstruction, incisional hernia and adhesions 2. Abdominal incision infection 3. Hypokalemia 4. Leukocytosis PLAN: -Wound VAC ordered with home care to be set up at home. district manager is following. -Oral antibiotics per ID service for discharge -Continue local wound care. -Continue antibiotics per ID -Continue pain medication as needed -Continue supportive care -Encouraged patient to ambulate in hallways -Encouraged patient to use incentive spirometer -GI prophylaxis Protonix and DVT prophylaxis Lovenox Physician Manufacturing Controller note has been reviewed by physician. Signing provider agrees with the documented findings, assessment, and plan of care. Objective - Vital Signs Vital signs: Vital Signs Temp 98.0 F 04/27/21 08:00 Pulse 82 04/27/21 12:56 Resp 18 04/27/21 08:00 BP 113/62 04/27/21 08:00 Pulse Ox 94 L 04/27/21 08:38 Intake & Output 04/26/21 04/27/21 04/27/21 18:59 06:59 18:59 Intake Total 1080 Output Total 400 Balance 1080 -400 Weight 99.79 kg Intake: Oral 1080 Output: Urine 400 Other: Voiding Method Toilet Toilet Toilet # Voids 3 # Bowel Movements 2 - Labs CBC & Chem 7: 04/27/21 05:38 04/27/21 05:38 Labs: Abnormal Lab Results - Last 24 Hours (Table) 04/27/21 04/27/21 Range/Units 05:38 05:38 WBC 17.6 H (3.8-10.6) k/uL RBC 3.85 L (4.30-5.90) m/uL Hgb 11.8 L (13.0-17.5) gm/dL Hct 36.9 L (39.0-53.0) % Plt Count 612 H (150-450) k/uL Neutrophils # 12.9 H (1.3-7.7) k/uL Monocytes # 1.4 H (0-1.0) k/uL Sodium 135 L (137-145) mmol/L Potassium 3.2 L (3.5-5.1) mmol/L BUN <2 L (9-20) mg/dL Glucose 106 H (74-99) mg/dL Microbiology - Last 24 Hours (Table) 04/24/21 13:00 Gram Stain - Final Abdomen Wound Culture - Final Escherichia coli Enterococcus faecium VRE 04/23/21 17:19 Anaerobic Culture - Final Abdomen Anaerobic Gm Negative Bacilli 04/23/21 18:14 Blood Culture - Preliminary Blood No Growth after 72 hours
--- NOTE | 2021-04-27 16:09 | P.PN ---
Subjective Progress Note Date: 04/27/21 04/19/2021 This is a 60-year-old male who was recently admitted under surgical services for acute small bowel obstruction and underwent exploratory laparotomy, lysis of adhesions and small bowel resection with repair of incisional hernia and removal of abdominal wall prosthetic with Dr. Elizabeth. Patient continues on ice chips only and continues with NG tube and is requesting if it can be removed. Patient reports the passing gas and denies any increasing abdominal pain. Patient states his discomfort is with the NG tube. Patient denies chest pain, shortness of breath, or palpitations. Patient is afebrile. Patient continues on gentle IV hydration 04/20/2021 Patient is seen today and having some nausea with one episode of vomiting. NG tube removed yesterday and maintain on clear liquids. Patient denies passing gas and no bowel movement as of yet. General surgery following. Encouraged increase activity as tolerated. Encouraged incentive spirometer use at least 10 times per hour while awake. Patient is afebrile. WBC trending down. Patient continues on 3L via NC and states he does not wear oxygen at home. Wean FI02 as tolerated. 04/21/2021 Patient is seen this morning and resting although easily arousable. Patient is continued on clear liquids and tolerating with no further episodes of nausea or vomiting. Patient is passing gas and having multiple episodes of loose stool and will obtain cdiff and possible imodium although recommend discussing with primary team prior to starting that. WBC elevated of 15 and being started on cefazolin. Some mild drainage noted of the lower surgical site and some jerzy to be removed today. 04/23/2021 Vital signs are reviewed temperature 98.0, pulse 77, blood pressure 115/66 Patient is seen and evaluated sitting up in bedside chair; denies any worsening abdominal pain Labs revealed worsening WBC count of 20.7; CRP of 18.4 but pro-calcitonin remains low at 0.2 Patient is currently on IV Ancef; we will discontinue and start patient on IV cefepime; we'll consult ID for further recommendations 04/24/2021 Patient is seen and evaluated and follow-up currently undergoing abdominal incision dressing change and is noted to have increased purulent drainage noted and is maintained on IV cefepime with infectious disease following. White blood count continues to be elevated and is currently 26.81 today. BMP within normal limits. CRP yesterday was 18.4 and pro-calcitonin 0.22. C. diff was negative. Patient continues on full liquid diet and discussed the surgery about possible CT abdomen for further evaluation. Patient is afebrile. Patient denies any chest pain or shortness of breath. Patient encouraged to increase activity as tolerated. Recommend continue with incentive spirometer at least 10 times every hour while awake. 04/25/2021 Patient is seen in follow-up this morning currently sitting up in bed and states his abdominal pain is somewhat improved. Patient's abdomen continues to be distended although patient states this is his baseline and does not feel he is distended. Patient continues with drainage noted at the surgical site and awaiting dressing change. Patient continues on IV antibiotics in the form of cefepime and vancomycin and preliminary culture showing gram-negative bacilli along with group D enterococcus and infectious disease is following closely. Patient states he was up and walking yesterday and today. Patient denies any shortness of breath or chest pain patient is currently on room air and has been intimately using 2-3 L via nasal cannula. Patient does have history of COPD and has breathing inhalational treatments and will continue. Potassium slightly low at 3.1 and will replace and repeat labs. White blood count trending down and is currently 20.2. Patient is afebrile. 04/26/2021 Patient is seen in follow-up today and currently sitting up at the side of the bed and continues with abdominal binder noted. Per nursing staff surgical dressings were changed multiple times throughout the night due to drainage and bleeding noted. Patient is continued on IV antibiotics in the form of cefepime, Flagyl, and now daptomycin with infectious disease following closely. Repeat preliminary culture showing gram-negative bacilli along with group D enterococcus and most recent wound cultures finalized showing E. coli with enterococcus VRE noted. Patient denies any worsening abdominal pain and is tolerating diet with reports of gas and stooling noted. Patient denies any nausea or vomiting. Patient denies chest pain or shortness of breath. Patient was anticipating going home although awaiting finalized cultures to determine discharge antibiotics and possible requiring IV antibiotic therapy on discharge. Repeat CT abdomen and pelvis ordered and pending. 04/27/2021 Patient is seen and evaluated in follow-up today with no acute overnight issues. Patient is having bowel movements and passing gas although CT abdomen yesterday shows interval surgery noted with persistent marked dilatation of the small bowel loops measuring up to 6.2 cm with gradual tapering down to the small bowel anastomosis as described above distal to the anastomosis, normal caliber small bowel is appreciated with passage of the contrast down to the cecum, element of twisting of the superior mesenteric vessels slightly more prominent compared to the previous CT, the overall picture could be related to ileus however associated element of mechanical obstruction can't be excluded. No free peritoneal air, portal venous gas or pneumatosis noted. ID also following as the wound culture showed E. coli and enterococcus faecium VRE with resistance and patient is continued on cefepime, daptomycin, oral Flagyl and will continue. Patient's potassium is low again at 3.2 and receiving 10 Meq daily will increase the daily supplements and add some potassium to the gentle IV hydration and repeat labs. A BCC is trending down at 17.6 and patient is afebrile. Review of systems: Constitutional: No reports of fatigue, fever, or chills Cardiovascular: No reports of chest pain or palpitations Respiratory: No reports of shortness of breath or cough GI: No reports of nausea, no reports of of vomiting, patient is passing gas and having bowel movements, reports improved abdominal discomfort today : No reports of dysuria or retention Neurovascular: No reports of weakness or numbness All medications have been reviewed Active Medications Hydrocodone Bitart/Acetaminophen (Hydrocodone/Apap 5-325mg 1 Each Tab) 1 each PO Q4HR PRN PRN Reason: moderate Pain Last Admin: 04/26/21 02:05 Dose: 1 each Documented by: Albuterol Sulfate (Albuterol Nebulized 2.5 Mg/3 Ml) 2.5 mg INHALATION RT-Q6H PRN PRN Reason: Shortness Of Breath Last Admin: 04/21/21 17:34 Dose: 2.5 mg Documented by: Albuterol/Ipratropium (Ipratropium-Albuterol 3 Ml Neb) 3 ml INHALATION RT-QID [facility] Last Admin: 04/27/21 15:23 Dose: 3 ml Documented by: Amitriptyline HCl (Amitriptyline Hcl 10 Mg Tab) 40 mg PO [facility] Last Admin: 04/26/21 20:56 Dose: 40 mg Documented by: Ascorbic Acid (Ascorbic Acid 500 Mg Tab) 1,000 mg PO DAILY [facility] Last Admin: 04/27/21 07:26 Dose: 1,000 mg Documented by: Atorvastatin Calcium (Atorvastatin 20 Mg Tab) 20 mg PO DAILY [facility] Last Admin: 04/27/21 07:25 Dose: 20 mg Documented by: Benzocaine/Menthol (Benzocaine/Menthol Lozeng 1 Each Lozenge) 1 each MUCOUS MEM Q4HR PRN PRN Reason: Sore Throat Last Admin: 04/26/21 21:16 Dose: 1 each Documented by: Budesonide/Formoterol Fumarate (Symbicort 160-4.5 Mcg Inhaler) 2 puff INHALATIO N RT-BID [facility] Last Admin: 04/27/21 08:38 Dose: 2 puff Documented by: Clopidogrel Bisulfate (Clopidogrel 75 Mg Tab) 75 mg PO DAILY [facility] Last Admin: 04/27/21 07:26 Dose: 75 mg Documented by: Enoxaparin Sodium (Enoxaparin 40 Mg/0.4 Ml Syringe) 40 mg SQ DAILY [facility] Last Admin: 04/27/21 07:29 Dose: 40 mg Documented by: Fluticasone Propionate (Fluticasone 50mcg/[place] Nasal 16gm) 1 spray EA NOSTRIL DAILY [facility] Last Admin: 04/27/21 07:29 Dose: 1 spray Documented by: HCTZ/Losartan Potassium (Losartan-Hctz 50-12.5 Mg 1 Each Tab) 1 each PO DAILY [facility] Last Admin: 04/27/21 07:29 Dose: 1 each Documented by: Hydromorphone HCl (Hydromorphone 1 Mg/Ml 1 Ml Syringe) 0.5 mg IVP Q3HR PRN PRN Reason: Moderate Pain Last Admin: 04/17/21 19:54 Dose: 0.5 mg Documented by: Hydromorphone HCl (Hydromorphone 1 Mg/Ml 1 Ml Syringe) 1 mg IVP Q3HR PRN PRN Reason: Severe Pain Last Admin: 04/24/21 15:00 Dose: 1 mg Documented by: Cefepime HCl 2 gm/ Sodium (Chloride) 100 mls @ 25 mls/hr IVPB Q8HR [facility] Last Admin: 04/27/21 07:26 Dose: 25 mls/hr Documented by: Daptomycin 600 mg/ Sodium (Chloride) 50 mls @ 100 mls/hr IVPB DAILY [facility] Last Admin: 02/24/22 07:39 Dose: 100 mls/hr Documented by: Potassium Chloride 20 meq/ (Sodium Chloride) 1,010 mls @ 50 mls/hr IV .[id number] [facility] Melatonin (Melatonin 3 Mg Tablet) 6 mg PO [facility] Last Admin: 04/26/21 20:55 Dose: 6 mg Documented by: Metoclopramide HCl (Metoclopramide 5 Mg/Ml 2 Ml Vial) 10 mg IVP Q6HR PRN PRN Reason: Nausea And Vomiting Last Admin: 04/24/21 16:58 Dose: 10 mg Documented by: Metronidazole (Metronidazole 500 Mg Tab) 500 mg PO TID [facility] Last Admin: 04/27/21 07:25 Dose: 500 mg Documented by: Mirtazapine (Mirtazapine 15 Mg Tab) 30 mg PO [facility] Last Admin: 04/26/21 20:55 Dose: 30 mg Documented by: Miscellaneous Information (Potassium Replacement Protocol 1 Each Misc) 1 each MISCELLANE DAILY PRN; Protocol PRN Reason: Per Protocol Miscellaneous Information (Potassium Replacement Protocol 1 Each Misc) 1 each MISCELLANE DAILY PRN; Protocol PRN Reason: Per Protocol Multivitamins (Multivitamins, Thera 1 Each Tab) 1 each PO DAILY [facility] Last Admin: 04/27/21 07:26 Dose: 1 each Documented by: Naloxone HCl (Naloxone 0.4 Mg/Ml 1 Ml Vial) 0.2 mg IV Q2M PRN PRN Reason: Opioid Reversal Nicotine (Nicotine 21mg/24hr Patch) 1 patch TRANSDERM DAILY [facility] Last Admin: 04/27/21 07:30 Dose: 1 patch Documented by: Non-Formulary Medication (Elviteg/Donna/Emtric/Tenofo Dis [Stribild Tablet]) 1 tab PO DAILY [facility] Last Admin: 04/27/21 07:28 Dose: 1 tab Documented by: Ondansetron HCl (Ondansetron 4 Mg/2 Ml Vial) 4 mg IVP Q6HR PRN PRN Reason: Nausea And Vomiting Last Admin: 04/24/21 08:28 Dose: 4 mg Documented by: Pantoprazole Sodium (Pantoprazole 40 Mg/10 Ml Vial) 40 mg IV DAILY [facility] Last Admin: 04/27/21 07:29 Dose: 40 mg Documented by: Potassium Chloride (Potassium Chloride Er 10 Meq Tab.Er.Prt) 20 meq PO DAILY [facility] PHYSICAL EXAMINATION: GENERAL: The patient is alert and oriented x4, Well developed, well nourished. HEENT: Pupils are round and equally reacting to light. EOMI. does have scleral icterus. No conjunctival pallor. Normocephalic, atraumatic. No pharyngeal erythema. No thyromegaly. CARDIOVASCULAR: S1 and S2 muffled PULMONARY: diminished breath sounds bilaterally with Few scattered rhonchi noted. ABDOMEN: soft. Non- Tender on exam. obese. mildly-distended, normoactive bowel sounds. No palpable organomegaly. Surgical dressing being changed later today and currently has abdominal binder noted MUSCULOSKELETAL: No joint swelling or deformity. EXTREMITIES: No cyanosis, clubbing, or pedal edema. NEUROLOGICAL: Gross neurological examination did not reveal any focal deficits. SKIN: No rashes. Assessment: Acute small bowel obstruction, status post exploratory laparotomy, lysis of adhesions, small bowel resection Abdominal incision infection with purulent drainage noted, cultures growing E. coli and enterococcus faecium VRE Chronic obstructive pulmonary disease Mild hypokalemia, 3.2 and replacing leukocytosis, trending down hypertension GI prophylaxis DVT prophylaxis Full code with no intubation Plan: Recommend to continue with gentle IV hydration and patient is maintained on regular diet. Patient is reporting to having bowel movements and passing gas. Patient is maintained on IV cefepime along with daptomycin and oral Flagyl and infectious disease following for possible abdominal incision infection as there is noted purulent drainage at the surgical site. Possible oral antibiotics on discharge. WBC trending down and recommended repeat labs. Patient's potassium continues to be low at 3.2 today and will replace and have increased the dose of daily supplement and will also add some to the gentle IV hydration and repeat labs. Encouraged incentive spirometer use at least 10 times every hour while awake and increase activity as tolerated. Patient does have duonebs ordered scheduled and as needed. Patient is afebrile. CT abdomen and pelvis as mentioned previously. Will continue to follow along with surgery during hospitalization. Prognosis is guarded. The impression and plan of care has been dictated by Marzena Moore, nurse practitioner as directed. I, Dr. Gerard MD I have performed a history and examination and MDM of this patient, discussed the same with the dictator, and agree with the dictator's assessment and plan as written ,documented as a scribe. Based on total visit time, I have performed more than 50% of the visit. Any additional findings or plans will be noted. Objective - Vital Signs Vital signs: Vital Signs Temp 98.0 F 04/27/21 08:00 Pulse 85 04/27/21 08:49 Resp 18 04/27/21 08:00 BP 113/62 04/27/21 08:00 Pulse Ox 94 L 04/27/21 08:38 Intake & Output 04/26/21 04/27/21 04/27/21 18:59 06:59 18:59 Intake Total 1080 Output Total 400 Balance 1080 -400 Intake: Oral 1080 Output: Urine 400 Other: Voiding Method Toilet Toilet Toilet # Voids 3 # Bowel Movements 2 - Labs CBC & Chem 7: 04/27/21 05:38 04/27/21 05:38 Labs: Abnormal Lab Results - Last 24 Hours (Table) 04/27/21 Range/Units 05:38 WBC 17.6 H (3.8-10.6) k/uL RBC 3.85 L (4.30-5.90) m/uL Hgb 11.8 L (13.0-17.5) gm/dL Hct 36.9 L (39.0-53.0) % Plt Count 612 H (150-450) k/uL Neutrophils # 12.9 H (1.3-7.7) k/uL Monocytes # 1.4 H (0-1.0) k/uL Microbiology - Last 24 Hours (Table) 04/24/21 13:00 Gram Stain - Final Abdomen Wound Culture - Final Escherichia coli Enterococcus faecium VRE 04/23/21 17:19 Anaerobic Culture - Final Abdomen Anaerobic Gm Negative Bacilli 04/23/21 18:14 Blood Culture - Preliminary Blood No Growth after 72 hours
[2021-04-27] MEDS: 0.9% NACL WITH KCL 20 MEQ/L 1,000 ML IV SCH (16:59)
[2021-04-27] MEDS: MIRTAZAPINE 15 MG TAB PO SCH (20:21)
[2021-04-27] MEDS: AMITRIPTYLINE HCL 10 MG TAB PO SCH (20:21)
[2021-04-27] MEDS: MELATONIN 3 MG TABLET PO SCH (20:22)
[2021-04-28 07:55] VITALS: BP 114/74; RESP 18; TEMP 98.2
[2021-04-28] MEDS: IPRATROPIUM-ALBUTEROL 3 ML NEB INHALATION SCH ×3 (08:32→16:05)
[2021-04-28] MEDS: SYMBICORT 160-4.5 MCG INHALER INHALATION SCH (08:32)
[2021-04-28] MEDS ORDERED: POTASSIUM CHLORIDE ER 20 MEQ TAB.ER PO SCH (09:00)
[2021-04-28 09:25] LABS: Basophils # (A) 0.1 k/uL (0-0.2); Basophils % (A) 1 %; Eosinophils # (A) 0.2 k/uL (0-0.7); Eosinophils % (A) 1 %; HCT 36.9 % (39.0-53.0); HGB 11.8 gm/dL (13.0-17.5); Lymphocytes # (A) 2.8 k/uL (1.0-4.8); Lymphocytes % (A) 16 %; MCH 30.5 pg (25.0-35.0); MCHC 31.9 g/dL (31.0-37.0); MCV 95.4 fL (80.0-100.0); Monocytes # (A) 1.3 k/uL (0-1.0); Monocytes % (A) 7 %; Neutrophils # (A) 12.3 k/uL (1.3-7.7); Neutrophils % (A) 72 %; Platelet Count 669 k/uL (150-450); RBC 3.87 m/uL (4.30-5.90); RDW 14.7 % (11.5-15.5)
[2021-04-28 09:38] LABS: African American GFR (CKD) >90 (>60 ml/min/1.73 sqM); Anion Gap 8 mmol/L; Blood Urea Nitrogen 4 mg/dL (9-20); Calcium 8.7 mg/dL (8.4-10.2); Carbon Dioxide 25 mmol/L (22-30); Chloride 103 mmol/L (98-107); Glucose 149 mg/dL (74-99); Non-African American GFR(CKD) >90 (>60 ml/min/1.73 sqM); Potassium 3.3 mmol/L (3.5-5.1); Sodium 136 mmol/L (137-145)
[2021-04-28] MEDS: MULTIVITAMINS, THERA 1 EACH TAB PO SCH (09:38)
[2021-04-28] MEDS: ASCORBIC ACID 500 MG TAB PO SCH (09:38)
[2021-04-28] MEDS: CLOPIDOGREL 75 MG TAB PO SCH (09:38)
[2021-04-28] MEDS: NICOTINE 21MG/24HR PATCH TRANSDERM SCH (09:39)
[2021-04-28] MEDS: LOSARTAN-HCTZ 50-12.5 MG 1 EACH TAB PO SCH (09:39)
[2021-04-28] MEDS: ENOXAPARIN 40 MG/0.4 ML SYRINGE SQ SCH (09:39)
[2021-04-28] MEDS: ATORVASTATIN 20 MG TAB PO SCH (09:39)
[2021-04-28] MEDS: [UNRECOGNIZED DRUG - OTHER] PO SCH (09:39)
[2021-04-28] MEDS: CEFEPIME 2 GM in SODIUM CHLORIDE 0.9% 100 ML IVPB SCH (09:39)
[2021-04-28] MEDS: metroNIDAZOLE 500 MG TAB PO SCH (09:39)
[2021-04-28] MEDS: FLUTICASONE 50MCG/SPRAY NASAL 16GM EA NOSTRIL SCH (09:40)
--- NOTE | 2021-04-28 09:49 | P.PN ---
Subjective Progress Note Date: 04/26/21 Principal diagnosis: Leukocytosis/abdominal source Patient is a 60 year male presenting to the hospital on 04/15/2021 for abdominal pain has been diagnosed with the high-grade mechanical obstruction status post laparotomy on 04/17/2021 lysis of adhesions and repair of incisional hernia, patient subsequently seemed to have a problem with abdominal incision dehiscence and elevated white count. On today's evaluation and that is 04/26/2021, the patient remains to be afe brile, the patient abdominal distention and pain has slightly decreased intensity the patient continued to have drainage from the middle part of the incision, the patient denies chest pain shortness of breath or cough no abdominal pain did have some diarrhea Objective - Vital Signs Vital signs: Vital Signs Temp 97.4 F L 04/26/21 08:00 Pulse 75 04/26/21 08:00 Resp 16 04/26/21 08:00 BP 130/70 04/26/21 08:00 Pulse Ox 95 04/26/21 08:00 Intake & Output 04/25/21 04/26/21 04/26/21 18:59 06:59 18:59 Intake Total 1080 Output Total 2400 Balance 1080 -2400 Intake: Oral 1080 Output: Urine 2400 Other: Voiding Method Toilet Toilet # Voids 3 # Bowel Movements 0 - Exam GENERAL DESCRIPTION: Middle-aged male lying in bed in no distress RESPIRATORY SYSTEM: Unlabored breathing , decreased breath sounds at bases HEART: S1 S2 regular rate and rhythm , ABDOMEN: Soft , distention with the midline incision middle part with some drainage EXTREMITIES: No edema feet - Labs CBC & Chem 7: 04/28/21 08:43 04/28/21 08:43 Labs: Abnormal Lab Results - Last 24 Hours (Table) 04/25/21 04/25/21 04/26/21 Range/Units 10:28 10:28 03:22 WBC 20.2 H 19.4 H (3.8-10.6) k/uL RBC 3.79 L 3.86 L (4.30-5.90) m/uL Hgb 11.9 L 11.8 L (13.0-17.5) gm/dL Hct 36.4 L 37.1 L (39.0-53.0) % Plt Count 520 H 530 H (150-450) k/uL Neutrophils # 15.9 H 15.2 H (1.3-7.7) k/uL Monocytes # 1.4 H 1.1 H (0-1.0) k/uL Sodium 135 L (137-145) mmol/L Potassium 3.1 L (3.5-5.1) mmol/L Carbon Dioxide (22-30) mmol/L BUN 6 L (9-20) mg/dL Glucose (74-99) mg/dL 04/26/21 Range/Units 03:22 WBC (3.8-10.6) k/uL RBC (4.30-5.90) m/uL Hgb (13.0-17.5) gm/dL Hct (39.0-53.0) % Plt Count (150-450) k/uL Neutrophils # (1.3-7.7) k/uL Monocytes # (0-1.0) k/uL Sodium 134 L (137-145) mmol/L Potassium 3.3 L (3.5-5.1) mmol/L Carbon Dioxide 21 L (22-30) mmol/L BUN 4 L (9-20) mg/dL Glucose 111 H (74-99) mg/dL Microbiology - Last 24 Hours (Table) 04/23/21 17:19 Gram Stain - Final Abdomen Wound Culture - Final Escherichia coli Enterococcus faecium VRE 04/24/21 13:00 Gram Stain - Preliminary Abdomen Wound Culture - Preliminary Gram Neg Bacilli Group D Enterococcus 04/23/21 18:14 Blood Culture - Preliminary Blood No Growth after 48 hours Assessment and Plan (1) Leukocytosis Current Visit: Yes Status: Acute Code(s): D72.829 - ELEVATED WHITE BLOOD CELL COUNT, UNSPECIFIED SNOMED Code(s): 714922289 Plan: 1patient with significant leukocytosis more likely abdominal source in this patient admitted to the hospital with mechanical small bowel obstruction status post laparotomy lysis of hydration and resection of portion of small bowel surgery was completed on 04/17/2021 now noticed to have some drainage from the middle part of the incision with concern for possible leak. Wound culture are growing E. coli and VRE patient is on cefepime and Flagyl vancomycin and discontinue started patient on daptomycin CT was discussed with the surgical team again which will be ordered and results will be followed Time with Patient: Less than 30
--- NOTE | 2021-04-28 09:51 | P.PN ---
Subjective Progress Note Date: 04/27/21 Principal diagnosis: Leukocytosis/abdominal source Patient is a 60 year male presenting to the hospital on 04/15/2021 for abdominal pain has been diagnosed with the high-grade mechanical obstruction status post laparotomy on 04/17/2021 lysis of adhesions and repair of incisional hernia, patient subsequently seemed to have a problem with abdominal incision dehiscence and elevated white count. On today's evaluation and that is 04/27/2021, the patient is afebrile, the patient abdominal pain has decreased in intensity, the patient denies chest pain shortness of breath or cough no abdominal pain did have some diarrhea Objective - Vital Signs Vital signs: Vital Signs Temp 98.0 F 04/27/21 08:00 Pulse 82 04/27/21 12:56 Resp 18 04/27/21 08:00 BP 113/62 04/27/21 08:00 Pulse Ox 94 L 04/27/21 08:38 Intake & Output 04/26/21 04/27/21 04/27/21 18:59 06:59 18:59 Intake Total 1080 Output Total 400 Balance 1080 -400 Weight 99.79 kg Intake: Oral 1080 Output: Urine 400 Other: Voiding Method Toilet Toilet Toilet # Voids 3 # Bowel Movements 2 - Exam GENERAL DESCRIPTION: Middle-aged male lying in bed in no distress RESPIRATORY SYSTEM: Unlabored breathing , decreased breath sounds at bases HEART: S1 S2 regular rate and rhythm , ABDOMEN: Soft , distention with the midline incision middle part with some drainage EXTREMITIES: No edema feet - Labs CBC & Chem 7: 04/28/21 08:43 04/28/21 08:43 Labs: Abnormal Lab Results - Last 24 Hours (Table) 04/27/21 04/27/21 Range/Units 05:38 05:38 WBC 17.6 H (3.8-10.6) k/uL RBC 3.85 L (4.30-5.90) m/uL Hgb 11.8 L (13.0-17.5) gm/dL Hct 36.9 L (39.0-53.0) % Plt Count 612 H (150-450) k/uL Neutrophils # 12.9 H (1.3-7.7) k/uL Monocytes # 1.4 H (0-1.0) k/uL Sodium 135 L (137-145) mmol/L Potassium 3.2 L (3.5-5.1) mmol/L BUN <2 L (9-20) mg/dL Glucose 106 H (74-99) mg/dL Microbiology - Last 24 Hours (Table) 04/24/21 13:00 Gram Stain - Final Abdomen Wound Culture - Final Escherichia coli Enterococcus faecium VRE 04/23/21 17:19 Anaerobic Culture - Final Abdomen Anaerobic Gm Negative Bacilli 04/23/21 18:14 Blood Culture - Preliminary Blood No Growth after 72 hours Assessment and Plan (1) Leukocytosis Current Visit: Yes Status: Acute Code(s): D72.829 - ELEVATED WHITE BLOOD CELL COUNT, UNSPECIFIED SNOMED Code(s): 534053957 Plan: 1patient with significant leukocytosis more likely abdominal source in this patient admitted to the hospital with mechanical small bowel obstruction status post laparotomy lysis of hydration and resection of portion of small bowel surgery was completed on 04/17/2021 now noticed to have some drainage from the middle part of the incision with concern for possible leak. Wound culture finalized as E. coli and VRE patient is on cefepime flagyl and daptomycin CT did not show any evidence of intra-abdominal abscess, discussed with the surgical team can be discharged on IV Rocephin and Flagyl and daptomycin 10 days versus oral Time with Patient: Less than 30
[2021-04-28] MEDS ORDERED: POTASSIUM CHLORIDE ER 20 MEQ TAB.ER PO STA (11:04)
[2021-04-28] MEDS: PANTOPRAZOLE 40 MG/10 ML VIAL IV SCH (11:29)
--- NOTE | 2021-04-28 14:23 | P.DS ---
Providers Date of admission: 04/15/21 16:42 Expected date of discharge: 04/28/21 Attending physician: Suraj Elizabeth Consults: 04/16/21 10:12 Consult Physician Routine Consulting Provider: Cornell Mcrae Consult Reason/Comments: med manag Do you want consulting provider notified?: Yes 04/23/21 14:50 Consult Physician Routine Consulting Provider: Ronan Wasserman Consult Reason/Comments: Worsening leukocytosis Do you want consulting provider notified?: Yes Primary care physician: Stated None Hospital Course: discharge diagnosis 1. Status post exploratory laparotomy, lysis of adhesions, small bowel resection, repair of incisional hernia and removal of abdominal wall prosthetic material for small bowel obstruction, incisional hernia and adhesions 2. Abdominal incision infection 3. Hypokalemia Received supplement prior to discharge 4. Leukocytosis Hospital course This is a 60-year-old male who was admitted through the emergency room with complaints of abdominal pain nausea and distention. Patient was worked up found have evidence of small bowel obstruction. Patient has a previous history of incisional hernia repair. This was performed approximately 10 years ago. Patient is HIV positive. Patient is Status post exploratory laparotomy, lysis of adhesions, small bowel resection, repair of incisional hernia and removal of abdominal wall prosthetic material for small bowel obstruction, incisional hernia and adhesions. patient did develop an abdominal incision infection. He will require wound VAC in outpatient setting. He will have home care to follow him. He will be discharged home with antibiotics. Patient has tolerated surgery well. Pain is controlled. He is having bowel movements and flatus. Denies any nausea or vomiting. He is afebrile. His white count is trending downwards. He is up and ambulating. His pain is controlled. He is stable for discharge. Patient is been cleared by consulting physicians for discharge. Patient is stable for discharge. Please refer to chart for any further details. Physician Sde note has been reviewed by physician. Signing provider agrees with the documented findings, assessment, and plan of care. Patient Condition at Discharge: Stable Plan - Discharge Summary Discharge Rx Participant: Yes New Discharge Prescriptions: New Ciprofloxacin HCl [Cipro] 500 mg PO Q12HR 10 Days #20 tab Linezolid [Zyvox] 600 mg PO Q12H 10 Days #20 tab HYDROcodone/APAP 5-325MG [[place] 5-325] 1 tab PO Q6HR PRN 3 Days #12 tab PRN Reason: Pain Nicotine 21Mg/24Hr Patch [Habitrol] 1 patch TRANSDERM DAILY 30 Days #30 patch Losartan [Cozaar] 50 mg PO DAILY 30 Days #30 tab metroNIDAZOLE [Flagyl] 500 mg PO TID 10 Days #30 tab traZODone HCL [Desyrel] 50 mg PO HS PRN 10 Days #10 tab PRN Reason: Insomnia Continue Ascorbic Acid [Vitamin C] 1,000 mg PO DAILY Multivit-Min/FA/Lycopen/Lutein [Centrum Silver Tablet] 1 tab PO DAILY Mirtazapine [Remeron] 30 mg PO HS Elviteg/Donna/Emtric/Tenofo Dis [Stribild Tablet] 1 tab PO DAILY Ipratropium/Albuterol Sulfate [Combivent Respimat Inhaler] 1 puff INHALATION RT-QID Red Yeast Rice 1,200 mg PO DAILY Levothyroxine Sodium [Synthroid] 50 mcg PO DAILY Ipratropium Jensen [Atrovent Hfa] 2 puff INHALATION RT-DAILY Albuterol Inhaler [Ventolin Hfa Inhaler] 2 puff INHALATION RT-QID PRN PRN Reason: Shortness Of Breath Clopidogrel [Plavix] 75 mg PO DAILY Fluticasone Nasal [place] [Flonase Nasal [place]] 1 spray EA NOSTRIL DAILY Atorvastatin [Lipitor] 20 mg PO DAILY Albuterol Nebulized [Ventolin Nebulized] 2.5 mg INHALATION RT-Q6H PRN PRN Reason: Shortness Of Breath Potassium Chloride ER [K-Dur 10] 10 meq PO DAILY Discontinued Losartan-Hctz 50-12.5 mg [Hyzaar 50-12.5] 1 tab PO DAILY Cephalexin [Keflex] 500 mg PO BID Amitriptyline HCl [Elavil] 40 mg PO HS Discharge Medication List Ascorbic Acid [Vitamin C] 1,000 mg PO DAILY 07/07/18 [History] Elviteg/Donna/Emtric/Tenofo Dis [Stribild Tablet] 1 tab PO DAILY 07/07/18 [History] Ipratropium/Albuterol Sulfate [Combivent Respimat Inhaler] 1 puff INHALATION RT- QID 07/07/18 [History] Mirtazapine [Remeron] 30 mg PO HS 07/07/18 [History] Multivit-Min/FA/Lycopen/Lutein [Centrum Silver Tablet] 1 tab PO DAILY 07/07/18 [History] Red Yeast Rice 1,200 mg PO DAILY 07/07/18 [History] Albuterol Inhaler [Ventolin Hfa Inhaler] 2 puff INHALATION RT-QID PRN 04/15/21 [History] Albuterol Nebulized [Ventolin Nebulized] 2.5 mg INHALATION RT-Q6H PRN 04/15/21 [History] Atorvastatin [Lipitor] 20 mg PO DAILY 04/15/21 [History] Clopidogrel [Plavix] 75 mg PO DAILY 04/15/21 [History] Fluticasone Nasal [place] [Flonase Nasal [place]] 1 spray EA NOSTRIL DAILY 04/15/21 [History] Ipratropium Jensen [Atrovent Hfa] 2 puff INHALATION RT-DAILY 04/15/21 [History] Levothyroxine Sodium [Synthroid] 50 mcg PO DAILY 04/15/21 [History] Potassium Chloride ER [K-Dur 10] 10 meq PO DAILY 04/15/21 [History] HYDROcodone/APAP 5-325MG [[place] 5-325] 1 tab PO Q6HR PRN 3 Days #12 tab 04/20/21 [Rx] Ciprofloxacin HCl [Cipro] 500 mg PO Q12HR 10 Days #20 tab 04/28/21 [Rx] Linezolid [Zyvox] 600 mg PO Q12H 10 Days #20 tab 04/28/21 [Rx] Losartan [Cozaar] 50 mg PO DAILY 30 Days #30 tab 04/28/21 [Rx] Nicotine 21Mg/24Hr Patch [Habitrol] 1 patch TRANSDERM DAILY 30 Days #30 patch 04/28/21 [Rx] metroNIDAZOLE [Flagyl] 500 mg PO TID 10 Days #30 tab 04/28/21 [Rx] traZODone HCL [Desyrel] 50 mg PO HS PRN 10 Days #10 tab 04/28/21 [Rx] Follow up Appointment(s)/Referral(s): [facility], [NON-STAFF] - ([facility] will call you to schedule your in home nursing visits. First visit will be on 04/29/21 to apply the wound vac. ) Diane Bryant NPC [Family Provider] - 1-2 Days Suraj Elizabeth MD [STAFF PHYSICIAN] - 1 Week Activity/Diet/Wound Care/Special Instructions: /[facility] - [phone] - call if you have questions about the wound vac No driving while taking [place] No lifting over 10 pounds You may shower. No soaking or tub baths for 2 weeks Very light activity until you are reevaluated at your follow up appointment with your surgeon Continue to hold Elavil until completed with antibiotics and then may resume Use trazodone 50 mg at night as needed May continue with Remeron Discharge Disposition: HOME WITH HOME HEALTH SERVICES
[2021-04-28] MEDS: 0.9% NACL WITH KCL 20 MEQ/L 1,000 ML IV SCH (14:53)
--- NOTE | 2021-04-28 15:19 | P.PN ---
Subjective Progress Note Date: 04/28/21 04/19/2021 This is a 60-year-old male who was recently admitted under surgical services for acute small bowel obstruction and underwent exploratory laparotomy, lysis of adhesions and small bowel resection with repair of incisional hernia and removal of abdominal wall prosthetic with Dr. Elizabeth. Patient continues on ice chips only and continues with NG tube and is requesting if it can be removed. Patient reports the passing gas and denies any increasing abdominal pain. Patient states his discomfort is with the NG tube. Patient denies chest pain, shortness of breath, or palpitations. Patient is afebrile. Patient continues on gentle IV hydration 04/20/2021 Patient is seen today and having some nausea with one episode of vomiting. NG tube removed yesterday and maintain on clear liquids. Patient denies passing gas and no bowel movement as of yet. General surgery following. Encouraged increase activity as tolerated. Encouraged incentive spirometer use at least 10 times per hour while awake. Patient is afebrile. WBC trending down. Patient continues on 3L via NC and states he does not wear oxygen at home. Wean FI02 as tolerated. 04/21/2021 Patient is seen this morning and resting although easily arousable. Patient is continued on clear liquids and tolerating with no further episodes of nausea or vomiting. Patient is passing gas and having multiple episodes of loose stool and will obtain cdiff and possible imodium although recommend discussing with primary team prior to starting that. WBC elevated of 15 and being started on cefazolin. Some mild drainage noted of the lower surgical site and some jerzy to be removed today. 04/23/2021 Vital signs are reviewed temperature 98.0, pulse 77, blood pressure 115/66 Patient is seen and evaluated sitting up in bedside chair; denies any worsening abdominal pain Labs revealed worsening WBC count of 20.7; CRP of 18.4 but pro-calcitonin remains low at 0.2 Patient is currently on IV Ancef; we will discontinue and start patient on IV cefepime; we'll consult ID for further recommendations 04/24/2021 Patient is seen and evaluated and follow-up currently undergoing abdominal incision dressing change and is noted to have increased purulent drainage noted and is maintained on IV cefepime with infectious disease following. White blood count continues to be elevated and is currently 26.81 today. BMP within normal limits. CRP yesterday was 18.4 and pro-calcitonin 0.22. C. diff was negative. Patient continues on full liquid diet and discussed the surgery about possible CT abdomen for further evaluation. Patient is afebrile. Patient denies any chest pain or shortness of breath. Patient encouraged to increase activity as tolerated. Recommend continue with incentive spirometer at least 10 times every hour while awake. 04/25/2021 Patient is seen in follow-up this morning currently sitting up in bed and states his abdominal pain is somewhat improved. Patient's abdomen continues to be distended although patient states this is his baseline and does not feel he is distended. Patient continues with drainage noted at the surgical site and awaiting dressing change. Patient continues on IV antibiotics in the form of cefepime and vancomycin and preliminary culture showing gram-negative bacilli along with group D enterococcus and infectious disease is following closely. Patient states he was up and walking yesterday and today. Patient denies any shortness of breath or chest pain patient is currently on room air and has been intimately using 2-3 L via nasal cannula. Patient does have history of COPD and has breathing inhalational treatments and will continue. Potassium slightly low at 3.1 and will replace and repeat labs. White blood count trending down and is currently 20.2. Patient is afebrile. 04/26/2021 Patient is seen in follow-up today and currently sitting up at the side of the bed and continues with abdominal binder noted. Per nursing staff surgical dressings were changed multiple times throughout the night due to drainage and bleeding noted. Patient is continued on IV antibiotics in the form of cefepime, Flagyl, and now daptomycin with infectious disease following closely. Repeat preliminary culture showing gram-negative bacilli along with group D enterococcus and most recent wound cultures finalized showing E. coli with enterococcus VRE noted. Patient denies any worsening abdominal pain and is tolerating diet with reports of gas and stooling noted. Patient denies any nausea or vomiting. Patient denies chest pain or shortness of breath. Patient was anticipating going home although awaiting finalized cultures to determine discharge antibiotics and possible requiring IV antibiotic therapy on discharge. Repeat CT abdomen and pelvis ordered and pending. 04/27/2021 Patient is seen and evaluated in follow-up today with no acute overnight issues. Patient is having bowel movements and passing gas although CT abdomen yesterday shows interval surgery noted with persistent marked dilatation of the small bowel loops measuring up to 6.2 cm with gradual tapering down to the small bowel anastomosis as described above distal to the anastomosis, normal caliber small bowel is appreciated with passage of the contrast down to the cecum, element of twisting of the superior mesenteric vessels slightly more prominent compared to the previous CT, the overall picture could be related to ileus however associated element of mechanical obstruction can't be excluded. No free peritoneal air, portal venous gas or pneumatosis noted. ID also following as the wound culture showed E. coli and enterococcus faecium VRE with resistance and patient is continued on cefepime, daptomycin, oral Flagyl and will continue. Patient's potassium is low again at 3.2 and receiving 10 Meq daily will increase the daily supplements and add some potassium to the gentle IV hydration and repeat labs. A BCC is trending down at 17.6 and patient is afebrile. 04/28/2021 Patient is seen and evaluated today and was having some mild abdominal cramping in the lower region although reports to it feeling like gas cramping and shortly after patient had a large bowel movement that was semi-formed. Patient reports the passing gas. Patient is scheduled for possible discharge today and is receiving wound VAC once authorized by insurance and will be going on oral antibiotics. Concerns with Elavil and Remeron interactions and antibiotics and discussed with psychiatry and will switch Elavil to trazodone until his 10 day course of antibiotics are finished. Patient has also been using the nicotine patches and requesting a prescription on discharge as he is feeling confident that he can continue to avoid tobacco use. Patient denies any chest pain, shortness of breath, or palpitations. Patient is afebrile. Patient's white blood count is trending down and recommend repeat labs in the outpatient setting. Patient potassium is 3.3 and will replace and give additional potassium supplements. Patient also takes hydrochlorothiazide/losartan and will recommend to hold and if needing blood pressure medications, recommend continue with low-dose losartan and discontinue hydrochlorothiazide. Review of systems: Constitutional: No reports of fatigue, fever, or chills Cardiovascular: No reports of chest pain or palpitations Respiratory: No reports of shortness of breath or cough GI: No reports of nausea, no reports of of vomiting, patient is passing gas and having bowel movements, reports improved abdominal discomfort today : No reports of dysuria or retention Neurovascular: No reports of weakness or numbness All medications have been reviewed PHYSICAL EXAMINATION: GENERAL: The patient is alert and oriented x4, Well developed, well nourished. HEENT: Pupils are round and equally reacting to light. EOMI. does have scleral icterus. No conjunctival pallor. Normocephalic, atraumatic. No pharyngeal erythema. No thyromegaly. CARDIOVASCULAR: S1 and S2 muffled PULMONARY: diminished breath sounds bilaterally with no wheezing or rhonchi noted. ABDOMEN: soft. Non- Tender on exam. obese. mildly-distended, normoactive bowel sounds. No palpable organomegaly. Surgical dressing dry and intact with binder noted and arranging for wound VAC MUSCULOSKELETAL: No joint swelling or deformity. EXTREMITIES: No cyanosis, clubbing, or pedal edema. NEUROLOGICAL: Gross neurological examination did not reveal any focal deficits. SKIN: No rashes. Assessment: Acute small bowel obstruction, status post exploratory laparotomy, lysis of adhesions, small bowel resection Abdominal incision infection with purulent drainage noted, cultures growing E. coli and enterococcus faecium VRE Chronic obstructive pulmonary disease Mild hypokalemia, 3.3 and replacing leukocytosis, trending down hypertension GI prophylaxis DVT prophylaxis Full code with no intubation Plan: Recommend to continue with gentle IV hydration and patient is maintained on regular diet. Patient is reporting to having bowel movements and passing gas. Patient was maintained on IV antibiotic's and infectious disease following for possible abdominal incision infection as there is noted purulent drainage at the surgical site. Patient will be discharged on oral antibiotics. WBC trending down and recommended repeat labs in the outpatient setting. Prescription also provided for nicotine patches. Encouraged incentive spirometer use at least 10 times every hour while awake and increase activity as tolerated. Will continue to follow along with surgery during hospitalization. Prognosis is guarded. Patient anticipates discharge today. The impression and plan of care has been dictated by Marzena Moore, nurse practitioner as directed. I, Dr. Gerard MD I have performed a history and examination and MDM of this patient, discussed the same with the dictator, and agree with the dictator's assessment and plan as written ,documented as a scribe. Based on total visit time, I have performed more than 50% of the visit. Any additional findings or plans will be noted. Objective - Vital Signs Vital signs: Vital Signs Temp 98.2 F 04/28/21 07:55 Pulse 84 04/28/21 08:42 Resp 18 04/28/21 08:42 BP 114/74 04/28/21 07:55 Pulse Ox 95 04/28/21 08:32 Intake & Output 04/27/21 04/28/21 04/28/21 18:59 06:59 18:59 Intake Total 1080 Output Total 500 Balance 1080 -500 Weight 99.79 kg Intake: Oral 1080 Output: Urine 500 Other: Voiding Method Toilet Toilet Toilet # Voids 3 # Bowel Movements 1 - Labs CBC & Chem 7: 04/28/21 08:43 04/28/21 08:43 Labs: Abnormal Lab Results - Last 24 Hours (Table) 04/28/21 04/28/21 Range/Units 08:43 08:43 WBC 17.0 H (3.8-10.6) k/uL RBC 3.87 L (4.30-5.90) m/uL Hgb 11.8 L (13.0-17.5) gm/dL Hct 36.9 L (39.0-53.0) % Plt Count 669 H (150-450) k/uL Neutrophils # 12.3 H (1.3-7.7) k/uL Monocytes # 1.3 H (0-1.0) k/uL Sodium 136 L (137-145) mmol/L Potassium 3.3 L (3.5-5.1) mmol/L BUN 4 L (9-20) mg/dL Glucose 149 H (74-99) mg/dL Microbiology - Last 24 Hours (Table) 04/23/21 18:14 Blood Culture - Preliminary Blood No Growth after 96 hours
[2021-04-28 16:18] VITALS: PULSE 80
== END 2021-04-28 16:40 | disposition home health service (06) | DRG 330 ==
LOC: EC 14:31 → 4SSUR 16:42
PROVIDERS: ADMIT Surgery; ATTEND Surgery
PROC: 0D9770Z Drainage of Stomach, Pylorus with Drainage Device, Via Natural or Artificial Opening (ICD-10-PCS; 2021-04-15)
PROC: 3E0G76Z Introduction of Nutritional Substance into Upper GI, Via Natural or Artificial Opening (ICD-10-PCS; 2021-04-15)
PROC: 0WPF0YZ Removal of Other Device from Abdominal Wall, Open Approach (ICD-10-PCS; principal; 2021-04-17 08:50)
PROC: 0WQF0ZZ Repair Abdominal Wall, Open Approach (ICD-10-PCS; principal; 2021-04-17 08:50)
PROC: 0DN80ZZ Release Small Intestine, Open Approach (ICD-10-PCS; principal; 2021-04-17 08:50)
PROC: 0DB80ZZ Excision of Small Intestine, Open Approach (ICD-10-PCS; principal; 2021-04-17 08:50)
DX: K56.609 Unspecified intestinal obstruction, unspecified as to partial versus complete obstruction (principal); Z16.21 Resistance to vancomycin; K43.2 Incisional hernia without obstruction or gangrene; I10 Essential (primary) hypertension; J44.9 Chronic obstructive pulmonary disease, unspecified; K66.0 Peritoneal adhesions (postprocedural) (postinfection); F17.210 Nicotine dependence, cigarettes, uncomplicated; E87.6 Hypokalemia; B96.20 Unspecified Escherichia coli [E. coli] as the cause of diseases classified elsewhere; B95.2 Enterococcus as the cause of diseases classified elsewhere; D72.829 Elevated white blood cell count, unspecified; Z21 Asymptomatic human immunodeficiency virus [HIV] infection status; Z79.02 Long term (current) use of antithrombotics/antiplatelets; Z79.890 Hormone replacement therapy; Z79.899 Other long term (current) drug therapy; Z20.822 Contact with and (suspected) exposure to COVID-19; Z98.890 Other specified postprocedural states; Z98.1 Arthrodesis status; Z71.3 Dietary counseling and surveillance
CPT/HCPCS: 36415; 71045; 71046; 74177; 80048; 80053; 81003; 82150; 82565; 83605; 83690; 83735; 84145; 85025; 86140; 87040; 87070; 87075; 87077; 87186; 87205; 87324; 87635; 88305; 88307; 94640; 94760; 96361; 96374; 96375; 99285

== ENCOUNTER → 2021-05-11 | Outpatient (CLI) | payer MEDICARE, BC ==
[2021-05-11 22:53] LABS: ALT 15 U/L (10-49); AST 17 U/L (14-35); African American GFR (CKD) 119.7 (60.0-200.0); Albumin 3.6 g/dL (3.8-4.9); Albumin/Globulin Ratio 1.09 (1.60-3.17); Alkaline Phosphatase 66 U/L (41-126); BUN/Creat Ratio 7.71 Ratio (12.00-20.00); Blood Urea Nitrogen 5.4 mg/dL (9.0-27.0); Calcium 8.9 mg/dL (8.7-10.3); Carbon Dioxide 25.8 mmol/L (20.0-27.5); Chloride 102 mmol/L (96-109); Globulin 3.3 g/dL (1.6-3.3); Glucose 93 mg/dL (70-110); Non-African American GFR(CKD) 103.3 (60.0-200.0); Potassium 3.9 mmol/L (3.5-5.5); Sodium 139 mmol/L (135-145); Total Bilirubin <0.15 mg/dL (0.30-1.20); Total Protein 6.9 g/dL (6.2-8.2)
[2021-05-11 23:27] LABS: Basophils # (A) 0.09 X 10*3/uL (0.00-0.10); Basophils % (A) 0.8 %; Eosinophils # (A) 0.67 X 10*3/uL (0.04-0.35); Eosinophils % (A) 5.7 %; HCT 36.3 % (39.6-50.0); HGB 11.1 g/dL (13.0-17.0); Immature Grans, Automated 0.4 %; Lymphocytes # (A) 3.73 X 10*3/uL (0.90-5.00); Lymphocytes % (A) 31.8 %; MCH 30.1 pg (27.0-32.0); MCHC 30.6 g/dL (32.0-37.0); MCV 98.4 fL (80.0-97.0); Monocytes # (A) 1.41 X 10*3/uL (0.20-1.00); NRBC Per 100 WBC 0 /100 WBCS (0.0-0.0); Neutrophils # (A) 5.78 X 10*3/uL (1.80-7.70); Neutrophils % (A) 49.3 %; Platelet Count 555 X 10*3/uL (140-440); RBC 3.69 X 10*6/uL (4.40-5.60); WBC 11.73 X 10*3/uL (4.50-10.00)
[2021-05-12 13:04] LABS: T4/T8 Ratio (CD4:CD8) 0.7 (1.0-3.7)
== END | disposition home or self-care (01) ==
LOC: LABWHC1 14:12
PROVIDERS: ATTEND Internal Medicine Infectious Disease
DX: B20 Human immunodeficiency virus [HIV] disease (principal)
CPT/HCPCS: 36415; 80053; 85025; 86360; 87536

== ENCOUNTER → 2021-12-05 | Outpatient (CLI) | payer MEDICARE, BC ==
[2021-12-05 19:56] LABS: Basophils # (A) 0.09 X 10*3/uL (0.00-0.10); Basophils % (A) 0.9 %; Eosinophils # (A) 0.29 X 10*3/uL (0.04-0.35); Eosinophils % (A) 2.8 %; HCT 41.8 % (39.6-50.0); HGB 12.4 g/dL (13.0-17.0); Immature Grans, Automated 0.3 %; Lymphocytes # (A) 3.56 X 10*3/uL (0.90-5.00); Lymphocytes % (A) 34.6 %; MCH 27.4 pg (27.0-32.0); MCHC 29.7 g/dL (32.0-37.0); MCV 92.5 fL (80.0-97.0); Mean Platelet Volume 10.1 fL (9.5-12.2); Monocytes # (A) 0.99 X 10*3/uL (0.20-1.00); Monocytes % (A) 9.6 %; NRBC Per 100 WBC 0 /100 WBCS (0.0-0.0); Neutrophils # (A) 5.33 X 10*3/uL (1.80-7.70); Neutrophils % (A) 51.8 %; Platelet Count 409 X 10*3/uL (140-440); RBC 4.52 X 10*6/uL (4.40-5.60); RDW 15.7 % (11.5-14.5); WBC 10.29 X 10*3/uL (4.50-10.00)
[2021-12-05 20:53] LABS: African American GFR (CKD) 84.7 (60.0-200.0); Anion Gap 11.8 mmol/L (10.00-18.00); BUN/Creat Ratio 12.18 Ratio (12.00-20.00); Blood Urea Nitrogen 13.4 mg/dL (9.0-27.0); Calcium 9.1 mg/dL (8.7-10.3); Carbon Dioxide 23.2 mmol/L (20.0-27.5); Non-African American GFR(CKD) 73.1 (60.0-200.0); Potassium 4.4 mmol/L (3.5-5.5)
[2021-12-06 12:41] LABS: HIV-1 RNA Not detected (Not detected); HIV-1 RNA, Quant <40 Copies/mL (<40); LOG HIV Copies/mL <1.60 (<1.60)
[2021-12-06 13:13] LABS: T4/T8 Ratio (CD4:CD8) 0.6 (1.0-3.7)
== END | disposition home or self-care (01) ==
LOC: LABWHC1 11:36
PROVIDERS: ATTEND Internal Medicine Infectious Disease
DX: B20 Human immunodeficiency virus [HIV] disease (principal)
CPT/HCPCS: 36415; 80048; 84450; 84460; 85025; 86360; 87536

== ENCOUNTER → 2022-06-04 | Outpatient (CLI) | payer MEDICARE, BC ==
[2022-06-05 05:15] LABS: Basophils # (A) 0.07 X 10*3/uL (0.00-0.10); Basophils % (A) 0.9 %; Eosinophils # (A) 0.25 X 10*3/uL (0.04-0.35); Eosinophils % (A) 3.1 %; HCT 38.3 % (39.6-50.0); HGB 11.5 g/dL (13.0-17.0); Immature Grans, Automated 0.3 %; Lymphocytes # (A) 3.34 X 10*3/uL (0.90-5.00); Lymphocytes % (A) 41.8 %; MCH 26.2 pg (27.0-32.0); MCV 87.2 fL (80.0-97.0); Monocytes # (A) 0.65 X 10*3/uL (0.20-1.00); Monocytes % (A) 8.1 %; NRBC Per 100 WBC 0 /100 WBCS (0.0-0.0); Neutrophils # (A) 3.66 X 10*3/uL (1.80-7.70); Neutrophils % (A) 45.8 %; Platelet Count 458 X 10*3/uL (140-440); RBC 4.39 X 10*6/uL (4.40-5.60); RDW 16.1 % (11.5-14.5); WBC 7.99 X 10*3/uL (4.50-10.00)
[2022-06-05 05:46] LABS: African American GFR (CKD) 84.1 (60.0-200.0); Albumin/Globulin Ratio 1.25 (1.60-3.17); Anion Gap 9.9 mmol/L (10.00-18.00); BUN/Creat Ratio 8.36 Ratio (12.00-20.00); Blood Urea Nitrogen 9.2 mg/dL (9.0-27.0); Calcium 9.3 mg/dL (8.7-10.3); Carbon Dioxide 28.1 mmol/L (20.0-27.5); Globulin 3.2 g/dL (1.6-3.3); Non-African American GFR(CKD) 72.6 (60.0-200.0); Potassium 3.4 mmol/L (3.5-5.5); Total Bilirubin 0.3 mg/dL (0.30-1.20); Total Protein 7.2 g/dL (6.2-8.2)
== END | disposition home or self-care (01) ==
LOC: LABWHC1 16:31
PROVIDERS: ATTEND Internal Medicine Infectious Disease
DX: B20 Human immunodeficiency virus [HIV] disease (principal)
CPT/HCPCS: 36415; 80053; 85025

== ENCOUNTER 2024-03-30 14:43 | Emergency (ER) | payer MEDICARE, BC ==
--- NOTE | 2024-03-30 16:22 | ED ---
Psych HPI <Jose Myrick - Last Filed: 03/30/24 20:22> - General Source: patient, family, police, RN notes reviewed Mode of arrival: ambulatory Limitations: no limitations - History of Present Illness MD Complaint: suicidal ideation <Kelle Clarke - Last Filed: 03/30/24 22:57> <Darrion Johnson - Last Filed: 03/31/24 13:07> - General Chief Complaint: Psychiatric Symptoms Stated Complaint: Petition Time Seen by Provider: 03/30/24 15:04 - History of Present Illness Initial Comments: This is a 63-year-old male who presents to the emergency department for psychi atric evaluation. Patient is petitioned by the police department for a suicide attempt where he reportedly tried to shoot himself with a gun, however he could not get the gun to work. Patient's daughter is at bedside and states that he has engaged in self harming behaviors in the past. However, patient currently denies feeling suicidal but does admit to attempting to harm himself earlier. Patient's daughter states that he feels like he is on a high right now and is making jokes. Patient is cutting his antidepressant in half, because he states that it is too expensive. Unsure which medication this is. When family left, patient admits to having stressors related to his daughters. States that he does everything he can for his family, however they think he is a terrible father, which is what prompted him to want to shoot himself. His daughter did take his gun away from him. Patient has a history of COPD and does wear oxygen at night. Denies feeling more short of breath than usual. (Kelle Clarke) - Related Data Home Medications Medication Instructions Recorded Confirmed Elviteg/Cob/Emtri/Tenofo Disop 1 tab PO DAILY 07/07/18 03/30/24 [Stribild Tablet] Ipratropium/Albuterol Sulfate 1 puff INHALATION RT-QID PRN 07/07/18 03/30/24 [Combivent Respimat Inhaler] Mirtazapine [Remeron] 15 mg PO HS 07/07/18 03/30/24 Albuterol Inhaler [Ventolin Hfa 2 puff INHALATION RT-Q4H PRN 04/15/21 03/30/24 Inhaler] Atorvastatin [Lipitor] 20 mg PO DAILY 04/15/21 03/30/24 Ipratropium [place] [Atrovent Hfa] 2 puff INHALATION RT-QID 04/15/21 03/30/24 Potassium Chloride ER [K-Dur 10] 10 meq PO BID PRN 04/15/21 03/30/24 Losartan-Hctz 50-12.5 mg [Hyzaar 1 tab PO DAILY 05/23/21 03/30/24 50-12.5] Amitriptyline HCl [Elavil] 25 - 50 mg PO HS 03/30/24 03/30/24 Apixaban [Eliquis] 2.5 mg PO BID 03/30/24 03/30/24 Ipratropium-Albuterol Nebulize 3 ml INHALATION RT-Q4H PRN 03/30/24 03/30/24 [Duoneb 0.5 mg-3 mg/3 ml Soln] Levothyroxine Sodium [Synthroid] 100 mcg PO DAILY 03/30/24 03/30/24 Allergies Allergy/AdvReac Type Severity Reaction Status Date / Time No Known Allergies Allergy Verified 03/30/24 17:00 Review of Systems ROS Other: All systems not noted in ROS Statement are negative. <Jose Myrick - Last Filed: 03/30/24 20:22> ROS Other: All systems not noted in ROS Statement are negative. <Kelle Clarke - Last Filed: 03/30/24 22:57> ROS Other: All systems not noted in ROS Statement are negative. <Darrion Johnson - Last Filed: 03/31/24 13:07> ROS Statement: Those systems with pertinent positive or pertinent negative responses have been documented in the HPI. Past Medical History Past Medical History: COPD Additional Past Medical History / Comment(s): HIV, cellulitis in 2020 History of Any Multi-Drug Resistant Organisms: VRE Date of last positivie culture/infection: 04/23/21 MDRO Source:: VRE ABD Past Surgical History: Hernia Repair, Joint Replacement Additional Past Surgical History / Comment(s): left knee, fatty tumor removed from lip, spinal surgery (fusion of C4 C5 and C6) Past Anesthesia/Blood Transfusion Reactions: No Reported Reaction Past Psychological History: No Psychological Hx Reported Smoking Status: Former smoker Past Alcohol Use History: None Reported Past Drug Use History: None Reported - Past Family History Father Family Medical History: Cancer Additional Family Medical History / Comment(s): Heart problmes and prostate cancer. Mother Family Medical History: Renal Disease <Kelle Clarke - Last Filed: 03/30/24 22:57> General Exam Limitations: no limitations General appearance: alert, in no apparent distress Head exam: Present: atraumatic Respiratory exam: Present: decreased breath sounds, prolonged expiratory Cardiovascular Exam: Present: regular rate, normal rhythm Neurological exam: Present: alert, oriented X3, CN II-XII intact Psychiatric exam: Present: normal affect, normal mood <Kelle Clarke - Last Filed: 03/30/24 22:57> Course Vital Signs 03/30/24 03/30/24 03/31/24 14:57 16:28 01:51 Temperature 98.0 F 98.2 F 98.4 F Pulse Rate 81 90 81 Respiratory 18 20 20 Rate Blood Pressure 155/77 132/78 117/70 O2 Sat by Pulse 95 96 96 Oximetry 03/31/24 03/31/24 03/31/24 06:25 06:31 06:45 Temperature 98.0 F Pulse Rate 82 80 82 Respiratory 20 Rate Blood Pressure 157/82 O2 Sat by Pulse 93 L Oximetry 03/31/24 03/31/24 10:09 12:54 Temperature Pulse Rate 75 64 Respiratory 20 18 Rate Blood Pressure 116/78 160/94 O2 Sat by Pulse 93 L 94 L Oximetry Medical Decision Making - Lab Data Result diagrams: 03/30/24 16:08 03/30/24 16:08 <Jose Myrick - Last Filed: 03/30/24 20:22> - Lab Data Result diagrams: 03/30/24 16:08 03/30/24 16:08 - Radiology Data Radiology results: report reviewed, image reviewed <Kelle Clarke - Last Filed: 03/30/24 22:57> - Lab Data Result diagrams: 03/30/24 16:08 03/30/24 16:08 <Darrion Johnson - Last Filed: 03/31/24 13:07> - Medical Decision Making Patient also evaluated by myself, Dr. Myrick. Patient resting comfortably in bed. Patient does admit to feeling depressed recently and decreasing his antidepressant medication. Patient admits to having suicidal thoughts today with plans of shooting himself with a gun. Patient did get a hold of a gun however was not able to work it because he could not figure out the safety. Patient was seen by mental health with plans for transfer. Positive clinical certificate is completed (Jose Myrick) This is a 63-year-old male who presents to the emergency department for psychiatric evaluation. Was pt. sent in by a medical professional or institution? @ -No Did you speak to anyone other than the patient for history? @ -His daughter provided the majority of the history. Did you review nursing and triage notes? @ -Yes, and I agree, it is accurate with regards to the patient's symptoms. Were old charts reviewed? @ -No Differential Diagnosis? @ -Differential Mental Health Depression, anxiety, bipolar, psychosis, schizophrenia, borderline personality, situational depression, adjustment disorder, behavioral disorder, brain tumor, malingering, substance abuse, encephalopathy, medication reaction, dementia, hypothyroidism, degenerative neurologic disorder, lupus.... This is not meant to be all-inclusive list EKG interpreted by me (3pts min.)? @ -Not obtained X-rays interpreted by me (1pt min.)? @ -Chest x-ray obtained, my interpretation identifies no localized consolidations or infiltrates. CT interpreted by me (1pt min.)? @ -Not obtained U/S interpreted by me (1pt. min.)? @ -Not obtained What testing was considered but not performed? (CT, X-rays, U/S, labs)? Why? @ -None What meds were considered but not given? Why? @ -None Did you discuss the management of the patient with other professionals? @ -Yes, Sarah with EPS, who advised that the patient meets criteria for admission due to active suicidal ideations, however he will need to be transferred due to his oxygen dependence at night. Did you reconcile home meds? @ -No Was smoking cessation discussed for >3mins.? @ -No Was critical care preformed (if so, how long)? @ -No Were there social determinants of health that impacted care today? How? (Homelessness, low income, unemployed, alcoholism, drug addiction, transportation, low edu. Level, literacy, decrease access to med. care, [place] [facility], rehab)? @ -No Was there de-escalation of care discussed even if they declined? (Discuss DNR or withdrawal of care, Hospice)? @ -No What co-morbidities impacted this encounter? (DM, HTN, Smoking, COPD, CAD, Cancer, CVA, Hep., AIDS, mental health diagnosis, sleep apnea, morbid obesity)? @ -COPD, HIV, depression Was patient admitted / discharged? @ -While the patient denied any worsening shortness of breath, because he wears oxygen at night we did obtain lab work, which was unremarkable. Chest x-ray also reveals no acute process. COVID, influenza, and RSV testing negative. Urinalysis negative for signs of infection. UDS positive for opiates and tricyclic antidepressants. Serum alcohol level was negative and the patient was cleared for EPS evaluation. EPS advised that the patient meets criteria for inpatient psychiatric hospitalization due to active suicidal ideations and increasing depression. However, because the patient is oxygen dependent at night he will have to be transferred to another facility that can accommodate this. Clinical CERT completed by ED attending, Dr. Myrick. Undiagnosed new problem with uncertain prognosis? @ -None Drug Therapy requiring intensive monitoring for toxicity (Heparin, Nitro, Ins ulin, Cardizem)? @ -None Were any procedures done? @ -None Diagnosis/symptom? @ -Suicidal ideations Acute, or Chronic, or Acute on Chronic? @ -Acute Uncomplicated (without systemic symptoms) or Complicated (systemic symptoms)? @ -Complicated Side effects of treatment? @ -None Exacerbation, Progression, or Severe Exacerbation] @ -Not applicable Poses a threat to life or bodily function? @ -Yes, can lead to (Kelle Clarke) Patient was accepted to [facility] for psychiatric admission (Darrion Johnson) - Lab Data Lab Results 03/30/24 03/30/24 03/30/24 Range/Units 16:08 16:08 16:08 WBC 10.6 (3.8-10.6) k/uL RBC 4.58 (4.30-5.90) m/uL Hgb 13.4 (13.0-17.5) gm/dL Hct 42.7 (39.0-53.0) % MCV 93.2 (80.0-100.0) fL MCH 29.2 (25.0-35.0) pg MCHC 31.4 (31.0-37.0) g/dL RDW 15.5 (11.5-15.5) % Plt Count 314 (150-450) k/uL MPV 7.0 Neutrophils % 49 % Lymphocytes % 38 % Monocytes % 7 % Eosinophils % 2 % Basophils % 1 % Neutrophils # 5.2 (1.3-7.7) k/uL Lymphocytes # 4.0 (1.0-4.8) k/uL Monocytes # 0.8 (0-1.0) k/uL Eosinophils # 0.3 (0-0.7) k/uL Basophils # 0.1 (0-0.2) k/uL Hypochromasia Moderate Sodium 140 (137-145) mmol/L Potassium 4.0 (3.5-5.1) mmol/L Chloride 101 (98-107) mmol/L Carbon Dioxide 29 (22-30) mmol/L Anion Gap 10 mmol/L BUN 11 (9-20) mg/dL Creatinine 0.96 (0.66-1.25) mg/dL Est GFR (CKD-EPI)AfAm >90 (>60 ml/min/1.73 sqM) Est GFR (CKD-EPI)NonAf 85 (>60 ml/min/1.73 sqM) Glucose 96 (74-99) mg/dL Calcium 9.4 (8.4-10.2) mg/dL Total Bilirubin 0.4 (0.2-1.3) mg/dL AST 37 (17-59) U/L ALT 44 (4-49) U/L Alkaline Phosphatase 79 (38-126) U/L NT-Pro-B Natriuret Pep 101 pg/mL Total Protein 7.4 (6.3-8.2) g/dL Albumin 4.1 (3.5-5.0) g/dL Urine Color Yellow Urine Appearance Clear (Clear) Urine pH 5.5 (5.0-8.0) Ur Specific [place] 1.022 (1.001-1.035) Urine Protein Trace H (Negative) Urine Glucose (UA) Negative (Negative) Urine Ketones Negative (Negative) Urine Blood Negative (Negative) Urine Nitrite Negative (Negative) Urine Bilirubin Negative (Negative) Urine Urobilinogen <2.0 (<2.0) mg/dL Ur Leukocyte Esterase Negative (Negative) Urine Opiates Screen Detected H (NotDetected) Ur Oxycodone Screen Not Detected (NotDetected) Urine Methadone Screen Not Detected (NotDetected) Ur Barbiturates Screen Not Detected (NotDetected) U Tricyclic Antidepress Detected H (NotDetected) Ur Phencyclidine Scrn Not Detected (NotDetected) Ur Amphetamines Screen Not Detected (NotDetected) U Methamphetamines Scrn Not Detected (NotDetected) U Benzodiazepines Scrn Not Detected (NotDetected) Urine Cocaine Screen Not Detected (NotDetected) U Marijuana (THC) Screen Not Detected (NotDetected) Serum Alcohol <10 mg/dL Influenza Type A (PCR) (Not Detectd) Influenza Type B (PCR) (Not Detectd) RSV (PCR) (Not Detectd) SARS-CoV-2 (PCR) (Not Detectd) 03/30/24 Range/Units 21:13 WBC (3.8-10.6) k/uL RBC (4.30-5.90) m/uL Hgb (13.0-17.5) gm/dL Hct (39.0-53.0) % MCV (80.0-100.0) fL MCH (25.0-35.0) pg MCHC (31.0-37.0) g/dL RDW (11.5-15.5) % Plt Count (150-450) k/uL MPV Neutrophils % % Lymphocytes % % Monocytes % % Eosinophils % % Basophils % % Neutrophils # (1.3-7.7) k/uL Lymphocytes # (1.0-4.8) k/uL Monocytes # (0-1.0) k/uL Eosinophils # (0-0.7) k/uL Basophils # (0-0.2) k/uL Hypochromasia Sodium (137-145) mmol/L Potassium (3.5-5.1) mmol/L Chloride (98-107) mmol/L Carbon Dioxide (22-30) mmol/L Anion Gap mmol/L BUN (9-20) mg/dL Creatinine (0.66-1.25) mg/dL Est GFR (CKD-EPI)AfAm (>60 ml/min/1.73 sqM) Est GFR (CKD-EPI)NonAf (>60 ml/min/1.73 sqM) Glucose (74-99) mg/dL Calcium (8.4-10.2) mg/dL Total Bilirubin (0.2-1.3) mg/dL AST (17-59) U/L ALT (4-49) U/L Alkaline Phosphatase (38-126) U/L NT-Pro-B Natriuret Pep pg/mL Total Protein (6.3-8.2) g/dL Albumin (3.5-5.0) g/dL Urine Color Urine Appearance (Clear) Urine pH (5.0-8.0) Ur Specific [place] (1.001-1.035) Urine Protein (Negative) Urine Glucose (UA) (Negative) Urine Ketones (Negative) Urine Blood (Negative) Urine Nitrite (Negative) Urine Bilirubin (Negative) Urine Urobilinogen (<2.0) mg/dL Ur Leukocyte Esterase (Negative) Urine Opiates Screen (NotDetected) Ur Oxycodone Screen (NotDetected) Urine Methadone Screen (NotDetected) Ur Barbiturates Screen (NotDetected) U Tricyclic Antidepress (NotDetected) Ur Phencyclidine Scrn (NotDetected) Ur Amphetamines Screen (NotDetected) U Methamphetamines Scrn (NotDetected) U Benzodiazepines Scrn (NotDetected) Urine Cocaine Screen (NotDetected) U Marijuana (THC) Screen (NotDetected) Serum Alcohol mg/dL Influenza Type A (PCR) Not Detected (Not Detectd) Influenza Type B (PCR) Not Detected (Not Detectd) RSV (PCR) Not Detected (Not Detectd) SARS-CoV-2 (PCR) Not Detected (Not Detectd) Disposition <Jose Myrick - Last Filed: 03/30/24 20:22> <Kelle Clarke - Last Filed: 03/30/24 22:57> <Darrion Johnson - Last Filed: 03/31/24 13:07> Clinical Impression: Suicidal ideations, Depression Disposition: TRANSFER TO PSYCH HOSP/UNIT Referrals: Elisa Johnson DO [Primary Care Provider] - 1-2 days
[2024-03-30 16:34] LABS: Basophils # (A) 0.1 k/uL (0-0.2); Basophils % (A) 1 %; Eosinophils # (A) 0.3 k/uL (0-0.7); Eosinophils % (A) 2 %; HCT 42.7 % (39.0-53.0); HGB 13.4 gm/dL (13.0-17.5); Hypochromasia Moderate; Lymphocytes % (A) 38 %; MCH 29.2 pg (25.0-35.0); MCHC 31.4 g/dL (31.0-37.0); MCV 93.2 fL (80.0-100.0); Monocytes # (A) 0.8 k/uL (0-1.0); Monocytes % (A) 7 %; Neutrophils # (A) 5.2 k/uL (1.3-7.7); Neutrophils % (A) 49 %; Platelet Count 314 k/uL (150-450); RBC 4.58 m/uL (4.30-5.90); RDW 15.5 % (11.5-15.5); WBC 10.6 k/uL (3.8-10.6)
[2024-03-30 16:44] LABS: ALT 44 U/L (4-49); AST 37 U/L (17-59); African American GFR (CKD) >90 (>60 ml/min/1.73 sqM); Albumin 4.1 g/dL (3.5-5.0); Alcohol <10 mg/dL; Alkaline Phosphatase 79 U/L (38-126); Anion Gap 10 mmol/L; Blood Urea Nitrogen 11 mg/dL (9-20); Calcium 9.4 mg/dL (8.4-10.2); Carbon Dioxide 29 mmol/L (22-30); Chloride 101 mmol/L (98-107); Glucose 96 mg/dL (74-99); Non-African American GFR(CKD) 85 (>60 ml/min/1.73 sqM); Sodium 140 mmol/L (137-145); Total Bilirubin 0.4 mg/dL (0.2-1.3); Total Protein 7.4 g/dL (6.3-8.2)
[2024-03-30 16:53] LABS: NT-Pro-B-Type Natriuretic Pept 101 pg/mL
--- NOTE | 2024-03-30 16:59 | XR ---
EXAMINATION TYPE: XR chest 2V DATE OF EXAM: 03/30/2024 4:54 PM COMPARISON: Chest radiographs from 06/05/2021 TECHNIQUE: XR chest 2V Frontal and lateral views of the chest. CLINICAL INDICATION:Male, 63 years old with history of PAULINO; FINDINGS: Lungs/Pleura: There is flattening of the diaphragm with increased lucency of the lungs. No evidence o f pneumothorax, pleural effusion or focal consolidation. Pulmonary vascularity: Unremarkable. Heart/mediastinum: Cardiomediastinal silhouette is unremarkable. Musculoskeletal: No acute osseous pathology. Cervical fusion hardware demonstrated. IMPRESSION: 1. No acute cardiopulmonary disease process. 2. COPD changes. [facility], , 03/30/2024 4:56 PM
[2024-03-30 17:09] LABS: Appearance,Urine Clear (Clear); Bilirubin,Urine Negative (Negative); Blood,Urine Negative (Negative); Color,Urine Yellow; Glucose,Urine (UA) Negative (Negative); Ketones,Urine Negative (Negative); Leukocyte Esterase,Urine Negative (Negative); Nitrite,Urine Negative (Negative); PH, Urine 5.5 (5.0-8.0); Protein,Urine Trace (Negative); Specific Gravity,Urine 1.022 (1.001-1.035); Urobilinogen,Urine <2.0 mg/dL (<2.0)
[2024-03-30 17:18] LABS: Amphetamine Screen,Urine Not Detected (NotDetected); Barbiturate Screen,Urine Not Detected (NotDetected); Benzodiazepines Screen,Urine Not Detected (NotDetected); Cocaine Screen,Urine Not Detected (NotDetected); Methadone Screen, Urine Not Detected (NotDetected); Opiate Screen,Urine Detected (NotDetected); Oxycodone Screen, Urine Not Detected (NotDetected); Phencyclidine Screen,Urine Not Detected (NotDetected); Tricyclic Antidepressant,Urine Detected (NotDetected); Urn Cannabinoid Scrn Not Detected (NotDetected)
[2024-03-30 22:06] LABS: Influenza A Not Detected (Not Detectd); Influenza B Not Detected (Not Detectd); RSV Not Detected (Not Detectd)
[2024-03-30] MEDS ORDERED: IPRATROPIUM-ALBUTEROL 3 ML NEB INHALATION PRN (22:57)
[2024-03-30] MEDS ORDERED: ALBUTEROL NEBULIZED 2.5 MG/3 ML INHALATION PRN (22:57)
[2024-03-31] MEDS ORDERED: ONDANSETRON ODT 4 MG TAB PO PRN
[2024-03-31] MEDS ORDERED: POTASSIUM CHLORIDE ER 10 MEQ TAB.ER.PRT PO PRN (00:30)
[2024-03-31] MEDS: ACETAMINOPHEN TAB 325 MG TAB PO PRN (06:28)
[2024-03-31] MEDS: LEVOTHYROXINE 100 MCG TAB PO SCH (06:29)
[2024-03-31] MEDS: IPRATROPIUM-ALBUTEROL 3 ML NEB INHALATION PRN (06:31)
[2024-03-31] MEDS ORDERED: IPRATROPIUM BROMIDE INHALATION SCH (08:00)
[2024-03-31] MEDS: [UNRECOGNIZED DRUG - OTHER] PO SCH (10:07)
[2024-03-31] MEDS: ATORVASTATIN 20 MG TAB PO SCH (10:07)
[2024-03-31] MEDS: APIXABAN 2.5 MG TABLET PO SCH (10:08)
[2024-03-31] MEDS: LOSARTAN-HCTZ 50-12.5 MG 1 EACH TAB PO SCH (10:08)
[2024-03-31] MEDS: [UNRECOGNIZED DRUG - OTHER] PO SCH (11:13)
[2024-03-31 12:55] VITALS: RESP 18
[2024-03-31 13:52] VITALS: BP 128/82; PULSE 78; TEMP 98.2
[2024-03-31] MEDS: LORazepam 1 MG TAB PO STA (15:06)
[2024-03-31] MEDS ORDERED: AMITRIPTYLINE HCL 25 MG TAB PO SCH (21:00)
[2024-03-31] MEDS ORDERED: MIRTAZAPINE 15 MG TAB PO SCH (21:00)
== END 2024-03-31 15:07 ==
LOC: EC 14:43
DX: R45.851 Suicidal ideations (principal); J44.9 Chronic obstructive pulmonary disease, unspecified; F32.A Depression, unspecified; B20 Human immunodeficiency virus [HIV] disease; Z87.891 Personal history of nicotine dependence; Z11.52 Encounter for screening for COVID-19; X74.01XA Intentional self-harm by airgun, initial encounter
CPT/HCPCS: 99285; 36415; 83880; 80053; 85025; 81003; 80306; 87636; 71046; G0480; 80320